=== PATIENT | female | born 1940 | race Caucasian/White ===

== ENCOUNTER → 2023-02-26 14:43 | Outpatient (REF) | payer OTHER, SELFPAY | LOC: WOUND 14:43 | PROVIDERS: ATTENDING PHYSICIAN Surgery; REFERRING PHYSICIAN Internal Medicine | DX: L97.822 Non-pressure chronic ulcer of other part of left lower leg with fat layer exposed (principal); L97.322 Non-pressure chronic ulcer of left ankle with fat layer exposed; D64.89 Other specified anemias; I10 Essential (primary) hypertension; Z86.73 Personal history of transient ischemic attack (TIA), and cerebral infarction without residual deficits | CPT/HCPCS: 29581; 97597 ==

== ENCOUNTER → 2023-03-31 14:35 | Outpatient (REF) | payer OTHER, SELFPAY | LOC: WOUND 14:35 | PROVIDERS: ATTENDING PHYSICIAN Surgery; REFERRING PHYSICIAN Internal Medicine | DX: L97.822 Non-pressure chronic ulcer of other part of left lower leg with fat layer exposed (principal); Z86.73 Personal history of transient ischemic attack (TIA), and cerebral infarction without residual deficits; I10 Essential (primary) hypertension; L03.116 Cellulitis of left lower limb; L97.322 Non-pressure chronic ulcer of left ankle with fat layer exposed | CPT/HCPCS: 97597 ==

== ENCOUNTER → 2023-04-09 11:45 | Outpatient (REF) | payer OTHER, SELFPAY | LOC: WOUND 11:45 | PROVIDERS: ATTENDING PHYSICIAN Surgery | DX: L03.116 Cellulitis of left lower limb (principal); L97.822 Non-pressure chronic ulcer of other part of left lower leg with fat layer exposed; Z86.73 Personal history of transient ischemic attack (TIA), and cerebral infarction without residual deficits; D64.89 Other specified anemias; I10 Essential (primary) hypertension; L97.322 Non-pressure chronic ulcer of left ankle with fat layer exposed | CPT/HCPCS: 97597; 97598 ==

== ENCOUNTER → 2023-07-22 14:43 | Outpatient (REF) | payer OTHER, SELFPAY | LOC: WOUND 14:43 | PROVIDERS: ATTENDING PHYSICIAN Surgery Plastic and Reconstructive Surgery; REFERRING PHYSICIAN Internal Medicine | DX: L97.822 Non-pressure chronic ulcer of other part of left lower leg with fat layer exposed (principal); D64.89 Other specified anemias; I10 Essential (primary) hypertension; L03.116 Cellulitis of left lower limb; L97.322 Non-pressure chronic ulcer of left ankle with fat layer exposed; Z86.73 Personal history of transient ischemic attack (TIA), and cerebral infarction without residual deficits | CPT/HCPCS: 29580; 99213 ==

== ENCOUNTER → 2023-08-01 14:40 | Outpatient (REF) | payer OTHER, SELFPAY | LOC: WOUND 14:40 | PROVIDERS: ATTENDING PHYSICIAN Surgery Plastic and Reconstructive Surgery; REFERRING PHYSICIAN Internal Medicine | DX: L97.822 Non-pressure chronic ulcer of other part of left lower leg with fat layer exposed (principal); L97.322 Non-pressure chronic ulcer of left ankle with fat layer exposed; L03.116 Cellulitis of left lower limb | CPT/HCPCS: 29580 ==

== ENCOUNTER → 2023-08-08 10:43 | Outpatient (REF) | payer OTHER, SELFPAY | LOC: WOUND 10:43 | PROVIDERS: ATTENDING PHYSICIAN Surgery Plastic and Reconstructive Surgery; REFERRING PHYSICIAN Internal Medicine | DX: L97.822 Non-pressure chronic ulcer of other part of left lower leg with fat layer exposed (principal); Z86.73 Personal history of transient ischemic attack (TIA), and cerebral infarction without residual deficits; D64.89 Other specified anemias; I10 Essential (primary) hypertension; L03.116 Cellulitis of left lower limb; L97.322 Non-pressure chronic ulcer of left ankle with fat layer exposed | CPT/HCPCS: 29580 ==

== ENCOUNTER → 2023-08-15 10:54 | Outpatient (REF) | payer OTHER, SELFPAY | LOC: WOUND 10:54 | PROVIDERS: ATTENDING PHYSICIAN Surgery; REFERRING PHYSICIAN Internal Medicine | DX: L03.116 Cellulitis of left lower limb (principal); L97.822 Non-pressure chronic ulcer of other part of left lower leg with fat layer exposed; Z86.73 Personal history of transient ischemic attack (TIA), and cerebral infarction without residual deficits; D64.89 Other specified anemias; I10 Essential (primary) hypertension; L97.322 Non-pressure chronic ulcer of left ankle with fat layer exposed | CPT/HCPCS: 29580; 99213 ==

== ENCOUNTER → 2023-09-04 14:54 | Outpatient (REF) | payer OTHER, SELFPAY | LOC: WOUND 14:54 | PROVIDERS: ATTENDING PHYSICIAN Surgery; REFERRING PHYSICIAN Nurse Practitioner Adult Health | DX: L97.322 Non-pressure chronic ulcer of left ankle with fat layer exposed (principal); L97.811 Non-pressure chronic ulcer of other part of right lower leg limited to breakdown of skin; D64.89 Other specified anemias; I10 Essential (primary) hypertension; L03.116 Cellulitis of left lower limb; Z86.73 Personal history of transient ischemic attack (TIA), and cerebral infarction without residual deficits | CPT/HCPCS: 11042; 99213 ==

== ENCOUNTER → 2023-09-09 09:56 | Outpatient (REF) | payer OTHER, SELFPAY | LOC: WOUND 09:56 | PROVIDERS: ATTENDING PHYSICIAN Surgery; REFERRING PHYSICIAN Nurse Practitioner Adult Health | DX: L97.322 Non-pressure chronic ulcer of left ankle with fat layer exposed (principal); L97.811 Non-pressure chronic ulcer of other part of right lower leg limited to breakdown of skin; L03.116 Cellulitis of left lower limb | CPT/HCPCS: 11042 ==

== ENCOUNTER → 2023-09-18 15:25 | Outpatient (REF) | payer OTHER, SELFPAY | LOC: WOUND 15:25 | PROVIDERS: ATTENDING PHYSICIAN Surgery; REFERRING PHYSICIAN Nurse Practitioner Adult Health | DX: L03.116 Cellulitis of left lower limb (principal); L97.322 Non-pressure chronic ulcer of left ankle with fat layer exposed; L97.811 Non-pressure chronic ulcer of other part of right lower leg limited to breakdown of skin; Z86.73 Personal history of transient ischemic attack (TIA), and cerebral infarction without residual deficits; D64.89 Other specified anemias; I10 Essential (primary) hypertension | CPT/HCPCS: 11042; 29581 ==

== ENCOUNTER → 2023-09-26 14:44 | Outpatient (REF) | payer OTHER, SELFPAY | LOC: WOUND 14:44 | PROVIDERS: ATTENDING PHYSICIAN Surgery; FAMILY PHYSICIAN Nurse Practitioner Adult Health | DX: L03.116 Cellulitis of left lower limb (principal); L97.322 Non-pressure chronic ulcer of left ankle with fat layer exposed; L97.811 Non-pressure chronic ulcer of other part of right lower leg limited to breakdown of skin; Z86.73 Personal history of transient ischemic attack (TIA), and cerebral infarction without residual deficits; D64.89 Other specified anemias; I10 Essential (primary) hypertension | CPT/HCPCS: 11042; 29581 ==

== ENCOUNTER → 2023-10-03 14:49 | Outpatient (REF) | payer OTHER, SELFPAY | LOC: WOUND 14:49 | PROVIDERS: ATTENDING PHYSICIAN Surgery; FAMILY PHYSICIAN Nurse Practitioner Adult Health | DX: L97.322 Non-pressure chronic ulcer of left ankle with fat layer exposed (principal); L97.811 Non-pressure chronic ulcer of other part of right lower leg limited to breakdown of skin; D64.89 Other specified anemias; I10 Essential (primary) hypertension; L03.116 Cellulitis of left lower limb; Z86.73 Personal history of transient ischemic attack (TIA), and cerebral infarction without residual deficits | CPT/HCPCS: 99212 ==

== ENCOUNTER → 2023-10-06 10:09 | Outpatient (REF) | payer OTHER, SELFPAY | LOC: WOUND 10:09 | PROVIDERS: ATTENDING PHYSICIAN Surgery; FAMILY PHYSICIAN Nurse Practitioner Adult Health | DX: L03.116 Cellulitis of left lower limb (principal); L97.322 Non-pressure chronic ulcer of left ankle with fat layer exposed; L97.821 Non-pressure chronic ulcer of other part of left lower leg limited to breakdown of skin; Z86.73 Personal history of transient ischemic attack (TIA), and cerebral infarction without residual deficits; D64.89 Other specified anemias; I10 Essential (primary) hypertension | CPT/HCPCS: 29580; 99213 ==

== ENCOUNTER → 2023-10-13 10:16 | Outpatient (REF) | payer OTHER, SELFPAY | LOC: WOUND 10:16 | PROVIDERS: ATTENDING PHYSICIAN Surgery; FAMILY PHYSICIAN Nurse Practitioner Adult Health | DX: L03.116 Cellulitis of left lower limb (principal); L97.322 Non-pressure chronic ulcer of left ankle with fat layer exposed; L97.821 Non-pressure chronic ulcer of other part of left lower leg limited to breakdown of skin; Z86.73 Personal history of transient ischemic attack (TIA), and cerebral infarction without residual deficits; D64.89 Other specified anemias; I10 Essential (primary) hypertension | CPT/HCPCS: 29580; 99213 ==

== ENCOUNTER → 2023-10-20 15:09 | Outpatient (REF) | payer OTHER, SELFPAY | LOC: WOUND 15:09 | PROVIDERS: ATTENDING PHYSICIAN Surgery; FAMILY PHYSICIAN Nurse Practitioner Adult Health | DX: L97.322 Non-pressure chronic ulcer of left ankle with fat layer exposed (principal); L97.821 Non-pressure chronic ulcer of other part of left lower leg limited to breakdown of skin; Z86.73 Personal history of transient ischemic attack (TIA), and cerebral infarction without residual deficits; D64.89 Other specified anemias; I10 Essential (primary) hypertension; L03.116 Cellulitis of left lower limb | CPT/HCPCS: 29581; 99213 ==

== ENCOUNTER → 2023-10-27 14:37 | Outpatient (REF) | payer OTHER, SELFPAY | LOC: WOUND 14:37 | PROVIDERS: ATTENDING PHYSICIAN Surgery; FAMILY PHYSICIAN Nurse Practitioner Adult Health | DX: L03.116 Cellulitis of left lower limb (principal); L97.322 Non-pressure chronic ulcer of left ankle with fat layer exposed; L97.821 Non-pressure chronic ulcer of other part of left lower leg limited to breakdown of skin; D64.89 Other specified anemias; I10 Essential (primary) hypertension; Z86.73 Personal history of transient ischemic attack (TIA), and cerebral infarction without residual deficits | CPT/HCPCS: 29581; 99213 ==

== ENCOUNTER → 2023-11-03 14:02 | Outpatient (REF) | payer OTHER, SELFPAY | LOC: WOUND 14:02 | PROVIDERS: ATTENDING PHYSICIAN Surgery; FAMILY PHYSICIAN Nurse Practitioner Adult Health | DX: L97.322 Non-pressure chronic ulcer of left ankle with fat layer exposed (principal); L97.821 Non-pressure chronic ulcer of other part of left lower leg limited to breakdown of skin; D64.89 Other specified anemias; I10 Essential (primary) hypertension; L03.116 Cellulitis of left lower limb; Z86.73 Personal history of transient ischemic attack (TIA), and cerebral infarction without residual deficits | CPT/HCPCS: 29581; 99213 ==

== ENCOUNTER → 2023-11-12 14:35 | Outpatient (REF) | payer OTHER, SELFPAY | LOC: WOUND 14:35 | PROVIDERS: ATTENDING PHYSICIAN Surgery; FAMILY PHYSICIAN Nurse Practitioner Adult Health | DX: L97.322 Non-pressure chronic ulcer of left ankle with fat layer exposed (principal); L97.821 Non-pressure chronic ulcer of other part of left lower leg limited to breakdown of skin; D64.89 Other specified anemias; L03.116 Cellulitis of left lower limb; I10 Essential (primary) hypertension | CPT/HCPCS: 99212 ==

== ENCOUNTER → 2024-04-08 09:56 | Outpatient (REF) | payer OTHER, SELFPAY ==
[2024-04-08 11:03] LABS: % Basophils 0.2 % (0-2); % Eosinophils 4.8 % (0-6); % Immature Granulocytes 0.5 % (0-0.5); % Lymphocytes 25.5 % (20.5-51.1); % Monocytes 11.8 % (1.7-9.3); % Neutrophils 57.2 % (42.2-75.2); Absolute Eosinophils 0.3 10^3/uL (0-0.7); Absolute Lymphocytes 1.5 10^3/uL (1.2-3.4); Absolute Monocytes 0.7 10^3/uL (0.1-0.6); Absolute Neutrophils 3.3 10^3/uL (1.4-6.5); Hematocrit 39.5 % (37.0-47.0); Hemoglobin 13.1 g/dL (12.0-16.0); Mean Corp Hgb Conc. 33.2 g/dL (33.0-37.0); Mean Corpuscular Hgb 30.3 pg (27.0-31.0); Mean Corpuscular Volume 91.2 fL (81.0-99.0); Mean Platelet Volume 10.2 fL (7.4-10.4); Nucleated Red Blood Cells % 0 %; Platelet Count 267 10^3/uL (130-400); Red Blood Cell Count 4.33 10^6/uL (4.20-5.40); Red Cell Dist. Width 14.6 % (11.5-14.5); White Blood Cell Count 5.7 10^3/uL (4.8-10.8)
[2024-04-08 11:48] LABS: ALT (SGPT) 30 U/L (0-35); AST (SGOT) 33 U/L (14-36); Albumin 4.1 g/dl (3.5-5.0); Alkaline Phosphatase 76 U/L (38-126); Blood Urea Nitrogen 26 mg/dl (7-17); Calcium 9.8 mg/dl (8.4-10.2); Carbon Dioxide 28 mmol/L (22-30); Chloride 104 mmol/L (98-107); Glucose 99 mg/dl (70-99); HDL Cholesterol 60 mg/dl; LDL Cholesterol, Calculated 109 mg/dl; Magnesium 2.1 mg/dl (1.6-2.3); Potassium 4.4 mmol/L (3.5-5.1); Sodium 142 mmol/L (135-145); Total Bilirubin 0.5 mg/dl (0.2-1.3); Total Cholesterol 186 mg/dl (50-199); Total Protein 6.7 g/dl (6.3-8.2); Triglyceride 89 mg/dl (10-149); Very Low Density Lipoprotein 17 mg/dl (0-30); eGFR > 60.00
[2024-04-08 12:04] LABS: Free T4 1.19 ng/dl (0.78-2.19); Vitamin D, 25-OH*** 48.4 ng/mL (30-80)
[2024-04-08 12:18] LABS: TSH 5.59 uIU/ml (0.47-4.68)
[2024-04-08 12:37] LABS: Vitamin B12 > 1000 pg/ml (239-931)
[2024-04-08 13:06] LABS: Glycohemoglobin (HgbA1c) 6.1 % (4.0-5.6)
== END ==
LOC: OLABMERCHI 09:56
PROVIDERS: ATTENDING PHYSICIAN Hospitalist
DX: D64.9 Anemia, unspecified (principal); D51.9 Vitamin B12 deficiency anemia, unspecified; R94.4 Abnormal results of kidney function studies; E03.9 Hypothyroidism, unspecified; E11.9 Type 2 diabetes mellitus without complications; E78.5 Hyperlipidemia, unspecified; N39.0 Urinary tract infection, site not specified; E83.42 Hypomagnesemia
CPT/HCPCS: 36415; 80053; 80061; 82306; 82607; 83036; 83735; 84439; 84443; 85025

== ENCOUNTER 2024-10-08 09:36 | Inpatient (IN) | payer OTHER, SELFPAY ==
[2024-10-06 17:16] VITALS: BP 95/59
--- NOTE | 2024-10-06 17:27 | ED.GENMED ---
ED Provider Triage
<Malik Holland PA-C - Last Filed: 10/11/24 08:09>
-
Patient seen by provider in Triage?: Seen in Triage
Attestation: A medical screening examination has been initiated by a qualified medical provider. Based on the assessment performed at this time, it has been determined that an emergent medical condition may exist and the patient has been informed
that further medical evaluation and possible additional diagnostic testing may be needed.
HPI: 84-year-old female presents from [facility] with ongoing wound to the inguinal region for 1 week. She was placed on Keflex and nystatin without relief. She is not a diabetic. Basic labs ordered through triage
GENERAL: Alert , in no apparent distress
EYE: No visual abnormalities.
NECK: Trachea midline
ENT: No visible abnormalities.
LUNGS: No acute respiratory distress
NEUROLOGICAL: Alert and oriented
SKIN: Skin intact. No visible changes.
MUSCULOSKELETAL: Moving extremities normally
PSYCH: Normal and appropriate interaction.
This is a medical evaluation conducted in person to initiate diagnostic evaluation and provide initial therapeutics. Please see further documentation by the treating clinician.
History of Present Illness
<Malik Holland PA-C - Last Filed: 10/11/24 08:09>
General
Chief Complaint: Skin Problem
Time Seen by Provider: 10/06/24 21:21
<Leroy Garg MD - Last Filed: 10/12/24 13:17>
General
Source: patient
Exam Limitations: none
Nursing documentation reviewed up to this point in time: agreed with
History of Present Illness
History of Present Illness:
Patient presents to ED secondary to worsening pain/itching sensation along her groin/vaginal wall over the past 3 days. Patient was started on Keflex 2 days ago, without improvement symptoms. Denies fever or chills. Denies nausea or vomiting.
Denies trauma, although patient does state that secondary to itchiness, she was scratching it and may have caused a small cut. Denies previous history of similar symptoms.
Past History
<Malik Holland PA-C - Last Filed: 10/11/24 08:09>
Past History
ED Past Medical History: CVA, HTN, Hypercholesterolemia and Other (UTI, Anemia-iron. )
ED Past Surgical History: (X 3), Gynecological (Hysterectomy, ) and Orthopedic (Laminectomy with Fusion. Left and right hip replacements. )
Social History
Tobacco: Non-smoker
Alcohol: None
Drug: None
Personal:
Living: alone
Employment: Not employed
Family History
Family History: Other
Review of Systems
<Leroy Garg MD - Last Filed: 10/12/24 13:17>
Review of Systems
Allergies reviewed?: Yes
All Other Systems: ROS reviewed and negative except as documented in HPI and ROS
Constitutional: Reports no symptoms; Denies fever or chills
ABD/GI: Reports no symptoms; Denies nausea or vomiting
Musculoskeletal: Reports no symptoms
Skin: Reports itching and other (Vaginal wall pain with swelling)
Neurological: Reports no symptoms
Phy Exam
<Leroy Garg MD - Last Filed: 10/12/24 13:17>
Physical Exam
Physical Exam:
Physical Exam
General: no apparent distress, not acutely ill. afebrile
Head: nc/at. eomi
Neck: supple. normal range of motion
Abdomen: normal bowel sounds. not tender.
Neuro: alert and oriented x 3. no focal neurological deficits
Skin: (IVET Carrasco, at bedside) - an approx 1cm x 2cm abscess along left vaginal wall with erythema/swelling/tenderness.
Psychiatric: well kept. interactive and cooperative
Extremities: no edema. no calf tenderness.
Course
<Malik Holland PA-C - Last Filed: 10/11/24 08:09>
Orders/Labs/Results
Orders:
Orders
10/06/24 17:34
Complete Blood Count/With Diff Urgent
Comprehensive Metabolic Panel Urgent
10/06/24 21:53
Piperacillin/Tazo 3.375 Gram [Zosyn] 3.375 gram in 50 ml IV NOW
10/06/24 22:57
Lactic Acid Q4H
Comment: CANCEL 2nd LACTIC ACID IF 1st LACTIC ACID IS LESS THAN 2
Blood Culture Q30M
CIARAN Source: Blood/Venous
Specimen Description:
Wound Culture [Wound/Abscess/Other Culture] Urgent
CIARAN Source: Abscess
Specimen Description:
Date Specimen was Collected: 10/06/24
Time Specimen was Collected: 22:43
Comment: left vulva abscess
10/06/24 23:00
Flush (0.9% Sodium Chloride) [Flush (Nss)] See Dose Instructions IV PER PROTOCOL
10/06/24 23:12
Admit/Transfer Patient As Directed
Co-Sign Provider:
Level of Care: Observation services
Assign to:: Medical/Surgical
Physician / Group: Jesús Siegel
Diagnosis: labia majora abscess/wound
PRN Pain Medication Management As Directed
May give lesser potent ordered pain med per pt: Yes
preference::
Protocol:: Medication orders for pain may be administered in a
manner that supports deferring to patient preference
when the pt is:
- Requesting an ordered lesser potent pain medication.
Least to most potent pain medications are defined
as: acetaminophen < NSAID < tramadol < opioids
(morphine, oxycodone, hydromorphone).
- Requesting a lesser dose of the same medication IF
ORDERED.
- Requesting a less intrusive route of administration
if both routes are prescribed by the provider (PO <
IV).
10/06/24 23:13
Code Status As Directed
Resuscitation Status: Full Code
10/07/24 00:29
Acetaminophen [Tylenol] 650 mg PO Q4HPRN PRN
10/07/24 00:29
Consult Notification Routine
Specialty to Notify: SLICING MACHINE FEEDER
Date consulting provider notified: 10/07/24
Time consulting provider notified: 07:21
Notified:: Provider
Comment: TT addiction treatment counselor OB
SLICING MACHINE FEEDER CONSULT Routine
Consulting Provider: Julissa Rm
Was physician already notified: No
Reason for consult: left labia majora abscess/wound
Activity As Directed
Activity Level: Out of Bed-Early Mobility
Vital Signs As Directed
Frequency: Per unit guidelines
Weight As Directed
Frequency: Once
DX Deep Vein Thrombosis Video Routine
10/07/24 04:00
Piperacillin/Tazo 3.375 Gram [Zosyn] 3.375 gram in 50 ml IV Q6H
10/07/24 04:12
Basic Metabolic Panel IN AM
Complete Blood Count/No Diff IN AM
10/07/24 05:43
Pt Screening Request from Carlos Routine
10/07/24 05:47
MRSA Screen Routine
CIARAN Source: Nose
Specimen Description:
10/07/24 08:00
Aspirin Low Dose EC [Aspir Low (Enteric Coated)] 81 mg PO DAILY
Cholecalciferol (Vitamin D3) [VITAMIN D3 (cholecalciferol)] 25 mcg PO DAILY
Hydrochlorothiazide [Oretic] 12.5 mg PO DAILY
Lisinopril [Zestril] 40 mg PO DAILY
Multivitamin [Theragran] 1 tablet PO DAILY
Vitamin B Complex with C [B COMPLEX w/VITAMIN C] 1 caplet PO DAILY
turmeric 800 mg PO DAILY
10/07/24 09:26
Pt Eval And Treat Routine
Activity Level: Ambulate
10/07/24 Lunch
Cholesterol Lowering
At Your Request: Limited Participation
10/07/24 11:23
WOUND/OSTOMY CONSULT Routine
Reason for Consult: labial draining wound
10/07/24 13:58
Wound Care As Directed
Location of Wound: LLE
Treatment of Wound: -clean with saline, moisture lotion to dry skin le's, apply adaptic/abd pad/kerlix daily
prn drainage.
10/07/24 13:59
Compression Therapy As Directed
Location/extremity:: Left LE knee high
Right LE knee high
Type of compression therapy:: Luis Wrap
Other type of compression therapy:: as tolerated; may remove q hs; reapply q am.
10/07/24 14:00
Wound Care As Directed
Location of Wound: L outer labia wound
Treatment of Wound: -flush with luke warm soap and water or Vashe wound cleanser, Santyl ointment to necrotic
tissue BID, cover with non woven gauze, ABD pad or Rachel pad, secure with underwear.
Change dressing BID and prn incontinence.
10/07/24 14:15
INFECTIOUS DISEASE CONSULT Routine
Consulting Provider: Roshan Julio
Was physician already notified: Yes
Reason for consult: vulvar abscess
10/07/24 18:00
Enoxaparin Sodium [Lovenox] 40 mg SC QPM
10/07/24 20:00
Collagenase [Santyl Ointment] See Dose Instructions TOPICAL BID
Miconazole Nitrate [Desenex/Mitrazol/Zeasorb] See Dose Instructions TOPICAL BID
10/07/24 22:00
Rosuvastatin Calcium [Crestor] 5 mg PO HS
cranberry fruit [cranberry] 450 mg PO HS
Abnormal Lab Results
10/06/24 10/07/24
17:34 04:12
RBC 3.85 L 10^6/uL
(4.20-5.40)
Hgb 11.5 L g/dL
(12.0-16.0)
Hct 35.2 L %
(37.0-47.0)
MCHC 32.7 L g/dL 32.7 L g/dL
(33.0-37.0) (33.0-37.0)
Abs Immat Gran (auto) 0.2 H 10^3/uL
(0-0.05)
Absolute Monos (auto) 0.8 H 10^3/uL
(0.1-0.6)
Immature Gran % 1.7 H %
(0-0.5)
Lymphocytes % 15.7 L %
(20.5-51.1)
BUN 27 H mg/dl 25 H mg/dl
(7-17) (7-17)
Glucose 121 H mg/dl 100 H mg/dl
(70-99) (70-99)
10/07/24 04:12
10/07/24 04:12
Vital Signs
Initial and Last Documented VS:
Initial Vital Signs
Temp Pulse Resp BP Pulse Ox
98 F 71 20 95/59 98
10/06/24 17:16 10/06/24 17:16 10/06/24 17:16 10/06/24 17:16 10/06/24 17:16
Last Documented Vital Signs
Temp Pulse Resp BP Pulse Ox
97.4 F 61 16 152/61 99
10/12/24 07:38 10/12/24 07:38 10/12/24 07:38 10/12/24 07:38 10/12/24 07:38
Nataliolt;Leroy Garg MD - Last Filed: 10/12/24 13:17>
Orders/Labs/Results
Orders:
Orders
10/06/24 17:34
Complete Blood Count/With Diff Urgent
Comprehensive Metabolic Panel Urgent
10/06/24 21:53
Piperacillin/Tazo 3.375 Gram [Zosyn] 3.375 gram in 50 ml IV NOW
10/06/24 22:57
Lactic Acid Q4H
Comment: CANCEL 2nd LACTIC ACID IF 1st LACTIC ACID IS LESS THAN 2
Blood Culture Q30M
CIARAN Source: Blood/Venous
Specimen Description:
Wound Culture [Wound/Abscess/Other Culture] Urgent
CIARAN Source: Abscess
Specimen Description:
Date Specimen was Collected: 10/06/24
Time Specimen was Collected: 22:43
Comment: left vulva abscess
10/06/24 23:00
Flush (0.9% Sodium Chloride) [Flush (Nss)] See Dose Instructions IV PER PROTOCOL
10/06/24 23:12
Admit/Transfer Patient As Directed
Co-Sign Provider:
Level of Care: Observation services
Assign to:: Medical/Surgical
Physician / Group: Jesús Siegel
Diagnosis: labia majora abscess/wound
PRN Pain Medication Management As Directed
May give lesser potent ordered pain med per pt: Yes
preference::
Protocol:: Medication orders for pain may be administered in a
manner that supports deferring to patient preference
when the pt is:
- Requesting an ordered lesser potent pain medication.
Least to most potent pain medications are defined
as: acetaminophen < NSAID < tramadol < opioids
(morphine, oxycodone, hydromorphone).
- Requesting a lesser dose of the same medication IF
ORDERED.
- Requesting a less intrusive route of administration
if both routes are prescribed by the provider (PO <
IV).
10/06/24 23:13
Code Status As Directed
Resuscitation Status: Full Code
10/07/24 00:29
Acetaminophen [Tylenol] 650 mg PO Q4HPRN PRN
10/07/24 00:29
Consult Notification Routine
Specialty to Notify: SLICING MACHINE FEEDER
Date consulting provider notified: 10/07/24
Time consulting provider notified: 07:21
Notified:: Provider
Comment: TT addiction treatment counselor OB
SLICING MACHINE FEEDER CONSULT Routine
Consulting Provider: Julissa Rm
Was physician already notified: No
Reason for consult: left labia majora abscess/wound
Activity As Directed
Activity Level: Out of Bed-Early Mobility
Vital Signs As Directed
Frequency: Per unit guidelines
Weight As Directed
Frequency: Once
DX Deep Vein Thrombosis Video Routine
10/07/24 04:00
Piperacillin/Tazo 3.375 Gram [Zosyn] 3.375 gram in 50 ml IV Q6H
10/07/24 04:12
Basic Metabolic Panel IN AM
Complete Blood Count/No Diff IN AM
10/07/24 05:43
Pt Screening Request from Carlos Routine
10/07/24 05:47
MRSA Screen Routine
CIARAN Source: Nose
Specimen Description:
10/07/24 08:00
Aspirin Low Dose EC [Aspir Low (Enteric Coated)] 81 mg PO DAILY
Cholecalciferol (Vitamin D3) [VITAMIN D3 (cholecalciferol)] 25 mcg PO DAILY
Hydrochlorothiazide [Oretic] 12.5 mg PO DAILY
Lisinopril [Zestril] 40 mg PO DAILY
Multivitamin [Theragran] 1 tablet PO DAILY
Vitamin B Complex with C [B COMPLEX w/VITAMIN C] 1 caplet PO DAILY
turmeric 800 mg PO DAILY
10/07/24 09:26
Pt Eval And Treat Routine
Activity Level: Ambulate
10/07/24 Lunch
Cholesterol Lowering
At Your Request: Limited Participation
10/07/24 11:23
WOUND/OSTOMY CONSULT Routine
Reason for Consult: labial draining wound
10/07/24 13:58
Wound Care As Directed
Location of Wound: LLE
Treatment of Wound: -clean with saline, moisture lotion to dry skin le's, apply adaptic/abd pad/kerlix daily
prn drainage.
10/07/24 13:59
Compression Therapy As Directed
Location/extremity:: Left LE knee high
Right LE knee high
Type of compression therapy:: Luis Wrap
Other type of compression therapy:: as tolerated; may remove q hs; reapply q am.
10/07/24 14:00
Wound Care As Directed
Location of Wound: L outer labia wound
Treatment of Wound: -flush with luke warm soap and water or Vashe wound cleanser, Santyl ointment to necrotic
tissue BID, cover with non woven gauze, ABD pad or Rachel pad, secure with underwear.
Change dressing BID and prn incontinence.
10/07/24 14:15
INFECTIOUS DISEASE CONSULT Routine
Consulting Provider: Roshan Julio
Was physician already notified: Yes
Reason for consult: vulvar abscess
10/07/24 18:00
Enoxaparin Sodium [Lovenox] 40 mg SC QPM
10/07/24 20:00
Collagenase [Santyl Ointment] See Dose Instructions TOPICAL BID
Miconazole Nitrate [Desenex/Mitrazol/Zeasorb] See Dose Instructions TOPICAL BID
10/07/24 22:00
Rosuvastatin Calcium [Crestor] 5 mg PO HS
cranberry fruit [cranberry] 450 mg PO HS
Abnormal Lab Results
10/06/24 10/07/24
17:34 04:12
RBC 3.85 L 10^6/uL
(4.20-5.40)
Hgb 11.5 L g/dL
(12.0-16.0)
Hct 35.2 L %
(37.0-47.0)
MCHC 32.7 L g/dL 32.7 L g/dL
(33.0-37.0) (33.0-37.0)
Abs Immat Gran (auto) 0.2 H 10^3/uL
(0-0.05)
Absolute Monos (auto) 0.8 H 10^3/uL
(0.1-0.6)
Immature Gran % 1.7 H %
(0-0.5)
Lymphocytes % 15.7 L %
(20.5-51.1)
BUN 27 H mg/dl 25 H mg/dl
(7-17) (7-17)
Glucose 121 H mg/dl 100 H mg/dl
(70-99) (70-99)
10/07/24 04:12
10/07/24 04:12
Vital Signs
Initial and Last Documented VS:
Initial Vital Signs
Temp Pulse Resp BP Pulse Ox
98 F 71 20 95/59 98
10/06/24 17:16 10/06/24 17:16 10/06/24 17:16 10/06/24 17:16 10/06/24 17:16
Last Documented Vital Signs
Temp Pulse Resp BP Pulse Ox
97.4 F 61 16 152/61 99
10/12/24 07:38 10/12/24 07:38 10/12/24 07:38 10/12/24 07:38 10/12/24 07:38
<Leroy Garg MD - Last Filed: 10/12/24 13:17>
MDM/Problems Addressed
MDM/Problems Addressed:
Large vaginal wall abscess noted on exam, not respond to antibiotics as an outpatient. Patient will be admitted for IV antibiotics with potential consult to [facility] service for incision and drainage.
<Malik Holland PA-C - Last Filed: 10/11/24 08:09>
*Critical Care Note
Total Time (30-74mins, 75-104mins- exclusive of procedures): Not Applicable
ED Attending Note
<Malik Holland PA-C - Last Filed: 10/11/24 08:09>
-
Portions of this chart may have been created with voice recognition software.� Occasional wrong word or��sound alike� substitutions may have occurred due to the inherent limitations of voice recognition software.
Discharge Plan
Departure
Patient Disposition: Admit
Date of Disposition: 10/06/24
Time of Disposition: 21:58
Admit to: Med/Surg
Presentation/result/management discussed w/ accepting MD/DO: Hospitalist
Discharge Problem:
Abscess of labia majora
Interventions
Interventions:
*Risk Screen - Suicide Last Done: 10/06/24 17:16
*General Assessment Last Done: 10/06/24 17:16
*Neglect/Abuse Screening Last Done: 10/06/24 17:16
*ED- Fall Risk Assessment Last Done: 10/06/24 21:38
*ED COVID-19 Vaccine History Last Done: 10/06/24 21:38
*Nursing Disposition Last Done: 10/07/24 20:44
ED-Skin Assessment Last Done: 10/06/24 21:59
Discharge Date and Time
Discharge Date/Time: 10/07/24 20:44
[2024-10-06 17:47] LABS: % Basophils 0.2 % (0-2); % Eosinophils 3.7 % (0-6); % Immature Granulocytes 1.7 % (0-0.5); % Lymphocytes 15.7 % (20.5-51.1); % Monocytes 8.9 % (1.7-9.3); % Neutrophils 69.8 % (42.2-75.2); Absolute Eosinophils 0.3 10^3/uL (0-0.7); Absolute Immature Granulocytes 0.2 10^3/uL (0-0.05); Absolute Lymphocytes 1.4 10^3/uL (1.2-3.4); Absolute Monocytes 0.8 10^3/uL (0.1-0.6); Absolute Neutrophils 6.1 10^3/uL (1.4-6.5); Hematocrit 40.7 % (37.0-47.0); Hemoglobin 13.3 g/dL (12.0-16.0); Mean Corp Hgb Conc. 32.7 g/dL (33.0-37.0); Mean Corpuscular Volume 91.7 fL (81.0-99.0); Mean Platelet Volume 9.4 fL (7.4-10.4); Nucleated Red Blood Cells % 0 %; Platelet Count 345 10^3/uL (130-400); Red Blood Cell Count 4.44 10^6/uL (4.20-5.40); White Blood Cell Count 8.7 10^3/uL (4.8-10.8)
[2024-10-06 18:00] LABS: ALT (SGPT) 21 U/L (0-35); AST (SGOT) 30 U/L (14-36); Albumin 4.2 g/dl (3.5-5.0); Alkaline Phosphatase 87 U/L (38-126); Blood Urea Nitrogen 27 mg/dl (7-17); Calcium 9.9 mg/dl (8.4-10.2); Carbon Dioxide 23 mmol/L (22-30); Chloride 101 mmol/L (98-107); Glucose 121 mg/dl (70-99); Potassium 4.8 mmol/L (3.5-5.1); Sodium 135 mmol/L (135-145); Total Bilirubin 0.7 mg/dl (0.2-1.3); Total Protein 7.1 g/dl (6.3-8.2); eGFR > 60.00
[2024-10-06 21:38] VITALS: BMI 34.5
[2024-10-06 21:51] VITALS: BP 149/59
[2024-10-06 22:00] VITALS: BP 125/51
--- NOTE | 2024-10-06 22:10 | HPS.HSE ---
Addendum entered and electronically signed by Jesús Siegel DO 10/06/24 23:53:
Patient is an 84y F with PMH significant for hypertension and prior CVA who presents to ED from [facility] for evaluation of labial wound. Patient states that she accidentally scratched herself about a week ago and started with pain and
swelling in that area. She has been applying heat with some improvement. The area has since opened and is now draining serosanguinous material. Patient was started on Kef[place] yesterday at the [place]. Today she was sent for further evaluation.
Ass:
Labial Abscess / Cellulitis
Benign Hypertension
ASCVD / Prior CVA
Mild Dementia
Plan:
Admit for further evaluation and treatment.
Continue abx with Zosyn pending culture data.
HAND PRINTED CIRCUIT BOARD ASSEMBLER evaluation for additional recommendations / possible local I&D.
Continue usual med regimen (hold Plavix acutely in case intervention needed).
Original Note:
Family Physician
-
Family Physician:
Chief Complaint
-
wound to left labia majora
History of Present Illness
Patient is a 84-year-old female with past medical history significant for essential hypertension, hyperlipidemia, Hx CVA and rectal prolapse that presented to [facility] ED from [facility] for evaluation of ongoing wound/abscess to left
labia majora that failed out patient antibiotics with Keflex. Patient states that wound started and was self inflected when she scratched herself and used a thick cream on it. She believes it started Friday but is unsure, son at bedside says
doctor at [facility] believes it started prior to then. Patient states she has had pain and itching to area. Yesterday the RIVET TESTER started Keflex and today recommended evaluation at hospital for no improvement. Denies any fever, chills, cough, shortness
of breath, nausea, vomiting, constipation, diarrhea or urinary symptoms.
Medical History
Past Medical History
Past Medical History: Reports Other
Additional Past Medical History:
essential hypertension
hyperlipidemia
Hx CVA
rectal prolapse
Past Surgical History: Reports Other
Additional Past Surgical History:
x3
hysterectomy
laminectomy with fusion
bilateral hip replacement
Social History
Tobacco: Non-smoker
Alcohol: Occasional
Drug: None
Living: Senior Care
Employment: Retired
Family History
Family History: Other (Mother: DM; Father: cancer )
Allergies / Home Medications
Allergies reflects when Allergies were last updated in [facility].
Home Medications with original date entered in [facility]
Allergy/Medication List:
Allergies
Allergy/AdvReac Type Severity Reaction Status Date / Time
risedronate sodium Allergy Patient Verified 10/06/24 17:19
denies
Home Medications
cholecalciferol (vitamin D3) 25 mcg (1,000 unit) tablet 2,000 units PO DAILY Supplement 02/02/19
rosuvastatin 5 mg tablet 5 mg PO HS High cholesterol 11/16/19
clopidogrel 75 mg tablet 75 mg PO DAILY Blood clot prevention/tx ##0 05/23/20
aspirin 81 mg tablet,delayed release 1 tab PO DAILY Blood clot prevention/tx 07/05/22
lisinopril 40 mg tablet 40 mg PO DAILY Blood Pressure 07/05/22
vitamin B complex 1 cap PO DAILY Supplement 07/05/22
acetaminophen 325 mg tablet 650 mg PO Q6HPRN PRN mild pain 01/11/23
cephalexin 500 mg capsule 500 mg PO BID 10/06/24
cranberry fruit 450 mg tablet (cranberry) 450 mg PO HS 10/06/24
hydrochlorothiazide 12.5 mg capsule 12.5 mg PO DAILY 10/06/24
nystatin 100,000 unit/gram topical powder (Klayesta) 1 applic topical BID groin 10/06/24
therapeutic multivitamin 1 tab PO DAILY 10/06/24
turmeric 400 mg capsule 800 mg PO DAILY 10/06/24
Review of Systems
-
History Source: Patient
Constitutional: Reports No Symptoms
EENT: Reports No Symptoms
Respiratory: Reports No Symptoms
Cardiac: Reports No Symptoms
Abdomen/GI: Reports No Symptoms
: Reports No Symptoms
Musculoskeletal: Reports No Symptoms
Skin: Reports Other (open wound to left labia majora with itching and discomfort )
Neurological: Reports No Symptoms
Endocrine: Reports No Symptoms
Hematologic/Lymphatic: Reports No Symptoms
Psych: Reports No Symptoms
Physical Exam
Vital Signs
Vital Signs
Temp Pulse Resp BP Pulse Ox
98 F 80 16 149/59 95
10/06/24 17:16 10/06/24 22:00 10/06/24 22:00 10/06/24 21:51 10/06/24 22:00
Physical Exam
General: Well Developed, Well Nourished, No Apparent Distress, Comfortable and Conversant
HEENT: NormoCephalic, Moist mucous membranes, Atraumatic, [place] Conjunctivae, Nose Appears Normal and Ears Appear Normal
Respiratory: Clear and Non Labored Respirations
Cardiac: S1/S2 and Regular Rhythm; No Murmur, Rub or Gallop
Breast: Deferred by me
GI: Soft, Non Tender, Non Distended and Normal Bowel Sounds; No Organomegaly
Rectal: Deferred by Provider
Genito-urinary: Deferred by me
Musculoskeletal: No Clubbing, No Cyanosis and No Edema
Skin: Warm and IV/Catheter Site; No Rash
Neuro: Awake, Alert, AO x 3 and Nonfocal/grossly intact
Psych: Calm and Intact Judgment/Insight
Laboratory Results
-
10/06/24 17:34
10/06/24 17:34
Laboratory Results
Total Bilirubin 0.7 mg/dl (0.2-1.3) 10/06/24 17:34
AST 30 U/L (14-36) 10/06/24 17:34
ALT 21 U/L (0-35) 10/06/24 17:34
Alkaline Phosphatase 87 U/L (38-126) 10/06/24 17:34
Data Reviewed
-
Lab Data: Labs Reviewed by me
Impression/Plan
-
IMPRESSION/PLAN:
#labia majora abscess
failed out patient antibiotics with Keflex
- Admit to med/surg
- Consult HAND PRINTED CIRCUIT BOARD ASSEMBLER
- continue IV Zosyn
- supportive care
#essential hypertension
- continue lisinopril
#hyperlipidemia
- continue rosuvastatin
#Hx CVA
- continue clopidogrel and rosuvastatin
#rectal prolapse
Code status: Full Code
DVT prophylaxis: Lovenox sq
[2024-10-06] MEDS: ZOSYN 50 IV (22:58)
[2024-10-06 23:00] VITALS: BP 143/50
[2024-10-07] VITALS (16 sets, daily range): BP systolic 114–162; BP diastolic 36–100; O2SAT 93; BMI 36.2
[2024-10-07] MEDS: ZOSYN 50 IV ×4 (04:24→21:17)
[2024-10-07 04:42] LABS: Hematocrit 35.2 % (37.0-47.0); Hemoglobin 11.5 g/dL (12.0-16.0); Mean Corp Hgb Conc. 32.7 g/dL (33.0-37.0); Mean Corpuscular Hgb 29.9 pg (27.0-31.0); Mean Corpuscular Volume 91.4 fL (81.0-99.0); Mean Platelet Volume 9.4 fL (7.4-10.4); Platelet Count 317 10^3/uL (130-400); Red Blood Cell Count 3.85 10^6/uL (4.20-5.40); Red Cell Dist. Width 13.2 % (11.5-14.5); White Blood Cell Count 7.4 10^3/uL (4.8-10.8)
[2024-10-07 04:57] LABS: Blood Urea Nitrogen 25 mg/dl (7-17); Calcium 9.3 mg/dl (8.4-10.2); Carbon Dioxide 28 mmol/L (22-30); Chloride 105 mmol/L (98-107); Estimated Creatinine Clearance 57 ml/min; Glucose 100 mg/dl (70-99); Potassium 4.2 mmol/L (3.5-5.1); Sodium 139 mmol/L (135-145); eGFR > 60.00
[2024-10-07] MEDS: B COMPLEX w/VITAMIN C 1 CAPLET PO (08:24)
[2024-10-07] MEDS: ZESTRIL 40 MG PO (08:24)
[2024-10-07] MEDS: VITAMIN D3 (cholecalciferol) 25 MCG PO (08:24)
[2024-10-07] MEDS: ASPIR LOW (ENTERIC COATED) 81 MG PO ×2 (08:24)
[2024-10-07] MEDS: THERAGRAN 1 TABLET PO (08:24)
[2024-10-07] MEDS: ORETIC 12.5 MG PO (09:22)
--- NOTE | 2024-10-07 09:25 | W.PN.HOSP.TC ---
Today's Communication/Plan
-
see bold
Assessment / Plan
Assessment / Plan
84y F with PMH significant for hypertension and prior CVA who presents to ED from [facility] for evaluation of labial wound. Patient states that she accidentally scratched herself about a week ago and started with pain and swelling in that
area. She has been applying heat with some improvement. The area has since opened and is now draining serosanguinous material. Patient was started on Keflex yesterday at [facility]. Today she was sent for further evaluation.
#Labia abscess
Continue IV zosyn, gynecology consulted for I&D
Holding Plavix
#Chronic bilateral lower extremity edema
Wound care consulted, compression stockings
#Essential hypertension
Continue lisinopril, hydrochlorothiazide
#Hyperlipidemia
Continue statin
#History of stroke
From [facility]
Hold Plavix for possible procedure
Continue aspirin, statin
#Obesity due to excess calories
Affects all aspects of care
DVT prophylaxis�subcu Lovenox
Full code
Total time spent to see the patient on the floor, examine the patient, review data and lab results, discuss treatment plan with patient, nursing staff around 45 minutes.
Physical Exam
General: Obese, no acute distress
HEENT: Normocephalic, Atraumatic, EOMI, MMM
Respiratory: Clear to Auscultation bilaterally
Cardiac: Normal S1/S2, Regular Rate and Rhythm
GI: Soft, Nontender, Nondistended, Normal Bowel Sounds
ENTRY LEVEL PROJECT COORDINATOR: defer to ENTRY LEVEL PROJECT COORDINATOR
Extremities: No Clubbing, Cyanosis
Bilateral lower extremity edema, chronic bilateral lower extremity erythema
Neuro: Nonfocal/Grossly Intact
Psych: Calm, Cooperative
Anticipated Discharge: Within 24 hours
Subjective/Interval History
-
Date of Service: October 07, 2024
Patient complains of labial pain with movement. She also complains of being hungry. No fever, no vomiting.
Objective Data
-
Labs:
Laboratory Results
10/07/24
04:12
WBC 7.4
Hgb 11.5 L
Hct 35.2 L
Plt Count 317
Sodium 139
Potassium 4.2
Chloride 105
Carbon Dioxide 28
BUN 25 H
Creatinine 0.8
Glucose 100 H
Calcium 9.3
Vital Signs:
Vital Signs
Temp Pulse Resp BP Pulse Ox
98.1 F 72 16 150/58 94
10/07/24 04:00 10/07/24 08:24 10/06/24 23:00 10/07/24 08:24 10/07/24 08:00
[2024-10-07] MEDS: TYLENOL 650 MG PO (11:33)
--- NOTE | 2024-10-07 13:44 | WOUNDNOTE ---
[facility] RN note: Patient admitted with outer labia abscess draining, cellulitis. Patient lives at [facility]. She has a supportive son.
See H&P for complete history.
PMH: CVA, mild dementia, ASCVD.
Wound Location and type/assessment: Patient admitted with: L outer labia full thickness abscess wound, open with yellow slough and pink tissue. +Erythema and local induration. Large amount of yellow cloudy drainage and some ss drainage. Inner
buttocks small healing stage 2 pressure injuries. Rachel/groin MASD. Abdominal fold MASD. Heels blanchable. LLE with dry cracked skin with some dried serous drainage. +Hemosiderosis. +Palpable pedal pulses. +LE edema L>R her normal as per patient. She
wears compression stockings at home.
Appetite: good.
Pressure redistribution devices in place: ED stretcher. She can turn slowly onto her side.
Plan: Dr.Cailyn Valentine evaluated labia wound/abscess and did local debridement, no bleeding, patient tolerated well. Local care discussed and plan is flush wound with soap and water or Vashe wound cleanser, BID Santyl ointment to necrotic tissue,
cover with ABD pad secured with underwear. Change outer dressing BID and prn incontinence. Miconazole powder to groin, affected areas bid. IVET Case applied knee high Luis wraps.
Will confirm orders with Dr. Barahona and updated IVET May.
Care plan to be updated and will follow as needed.
Recommend follow up at wound care center upon discharge.
--- NOTE | 2024-10-07 13:47 | WOUNDNOTE ---
SACRUM/COCCYX/BUTTOCKS
--- NOTE | 2024-10-07 13:48 | WOUNDNOTE ---
BILATERAL LOWER LEGS
--- NOTE | 2024-10-07 13:49 | WOUNDNOTE ---
BILATERAL LOWER LEGS
--- NOTE | 2024-10-07 13:50 | WOUNDNOTE ---
LEFT LATERAL POSTERIOR LOWER LEG/HEEL
--- NOTE | 2024-10-07 13:51 | WOUNDNOTE ---
BILATERAL LOWER LEGS
--- NOTE | 2024-10-07 15:45 | CON.MD ---
Consultation - Medical
-
Consult: vulvar abscess
HPI: Patient is an 84yo P3 who presented to the ED for evaluation of a vulvar abscess. She is a resident of [facility] and was started on Keflex 2 days ago for the abscess, but it did not get better. She says she thinks she scratched herself and
then noticed the abscess a couple days ago. She says prior to this, she did not notice anything. The abscess has since opened and is draining serosanguineous fluid. She denies fevers or chills. She has some pain in the area but she says it is
relieved by Tylenol. She says this has not happened before. She has had wounds of her lower extremities that she saw wound care for, but nothing on her labia or vulva. She says she is incontinent and has some burning of the area when she urinates.
She wears a diaper and pad for incontinence.
ROS negative unless otherwise noted in the HPI
PMHx: HTN, chronic b/l lower extremity edema, HLD, hx stroke, obesity, rectal prolapse
Meds: (see chart) vitamin D3, rosuvastatin, clopidogrel, ASA, HCTZ
Surghx: C/Sx3, hysterectomy (per chart, pt did not reveal this when asked about prior surgery), laminectomy w/ fusion, b/l hip replacement
All: denies
Socialhx: occasional etoh, denies tobacco or illicit drug use
Famhx: mom w/ DM
O:
BP 140/63, VSS
General: well appearing, resting in bed
Cardio: regular
Pulm: no increased work of breathing
Abd: soft, nontender.
: 3x2cm abscess on left vulva that is open, what appears to be necrotic exudate is present in the bed of the abscess, some of this was trimmed away with scissors, wound was irrigated with saline, the wound was probed with a q-tip and does not
track, there is some erythema that spreads beyond the abscess towards the mons pubis
A/P: Patient is an 84yo P3 who presents with vulvar abscess
- Vulvar abscess is open with necrotic exudate that was partially trimmed away. The area was irrigated with saline at bedside with wound care nurses present. Agree with their recommendations to apply Santyl to the area and dressing changes BID or
when soiled
- Continue IV Zosyn. ID consulted for antibiotic recommendations.
- Wound culture was collected in the ED and pending
- Recommend continuing to hold her Plavix for now in case of need for intervention. No plan for surgical intervention as this time.
30 minutes spent with patient, reviewing the chart and documenting
[2024-10-07] MEDS: LOVENOX 40 MG SC (17:10)
--- NOTE | 2024-10-07 18:39 | CON.ID ---
Consultation
-
Date/Time Consultation Requested: 10/07/2024 1415
Date/Time Consultation Performed: 10/07/2024 1750
Requesting Provider: Sharonda
Performing Provider: Sumanth
Reason for Consultation: Left labia abscess
Chief Complaint / Past History
History of Present Illness
Parul Emmanuel is an 84-year-old female being evaluated at the request of Dr. Valentine regarding a left labial abscess. History is obtained from chart review, along with patient interview.
The patient reports that sometime last week she developed some pain in the inguinal area which she proceeded to itch and scratch. She recalls also using some Aquaphor to the area. Earlier this week she spoke to her nurse who examined her and found
swelling in the labia area and she was started on Keflex 2 days ago. Yesterday she was seen by the physician and because of increased swelling of the area she was sent to the ER. Since arrival in the ER it appears that the abscess has
spontaneously drained, although the patient does not recall any time of having purulent drainage. She was evaluated by WELDING MACHINE OPERATOR [employer]. Cultures have been obtained.
The patient denies any fevers or chills. She denies any dysuria. She reports pain is controlled at this time.
Past History
Additional Past Medical History:
Hx CVA
HTN
Dyslipidemia
Additional Past Surgical History:
Bilateral hip replacement
Allergy History:
risedronate sodium Allergy (Verified 10/06/24 17:19)
Patient denies
Medications Reviewed: Yes
Current Antibiotics:
Zosyn 3.375 g IV every 6 hours
Social History
Tobacco: Non-Smoker
Drug: None
Personal: Single
Living: Assisted Living
Employment: Retired
Review of Systems
Vital Signs
Temp Pulse Resp BP Pulse Ox
97.8 F 72 16 140/63 96
10/07/24 15:52 10/07/24 08:24 10/06/24 23:00 10/07/24 15:19 10/07/24 15:52
Physical Exam
Physical Exam
Constitutional: No Acute Distress, Comfortable and Non-toxic
Eyes: No Conjunctival Hemorrhage and Sclera Anicteric
Cardiovascular: S1/S2; Negative S3/S4
Pulmonary: Non Labored
Gastrointestinal: Non Tender
Wound: Other (Left labia wound with evidence of abscess cavity.)
Neurological: Awake and Alert
Psychological: Calm
Lab / Diagnostic Study Results
10/07/24 04:12
10/07/24 04:12
Abs Immat Gran (auto) 0.2 10^3/uL (0-0.05) H 10/06/24 17:34
Absolute Neuts (auto) 6.1 10^3/uL (1.4-6.5) 10/06/24 17:34
Absolute Lymphs (auto) 1.4 10^3/uL (1.2-3.4) 10/06/24 17:34
Absolute Monos (auto) 0.8 10^3/uL (0.1-0.6) H 10/06/24 17:34
Absolute Basos (auto) 0.0 10^3/uL (0-0.2) 10/06/24 17:34
Immature Gran % 1.7 % (0-0.5) H 10/06/24 17:34
Neutrophils % 69.8 % (42.2-75.2) 10/06/24 17:34
Lymphocytes % 15.7 % (20.5-51.1) L 10/06/24 17:34
Monocytes % 8.9 % (1.7-9.3) 10/06/24 17:34
Eosinophils % 3.7 % (0-6) 10/06/24 17:34
Basophils % 0.2 % (0-2) 10/06/24 17:34
Lactic Acid 1.0 mmol/L (0.7-2.0) 10/06/24 22:57
Microbiology Results
Micro:
10/07/24 05:47 MRSA Screen - Pending
Nose
10/06/24 22:57 Wound Culture - Pending
Abscess Gram Stain - Preliminary
10/06/24 22:57 Blood Culture - Pending
Blood/Venous
Assessment / Plan
Left labia abscess; s/p spontaneous drainage
-Failed outpatient Keflex
Left labia cellulitis
Recommendations:
Continue with Zosyn for the present.
Await pending cultures to guide further antimicrobial therapy.
Local care to the abscess cavity area.
Patient has being followed by WELDING MACHINE OPERATOR [employer], and may require further debridement depending upon subsequent exams.
Care Review
Plan reviewed with: Nurse
[2024-10-07] MEDS: DESENEX/MITRAZOL/ZEASORB 1 APPLIC TOPICAL (21:13)
[2024-10-07] MEDS: SANTYL OINTMENT 1 APPLIC TOPICAL (21:13)
[2024-10-07] MEDS: CRESTOR 5 MG PO (21:17)
[2024-10-08] MEDS: ZOSYN 50 IV ×4 (04:28→21:24)
[2024-10-08 07:14] VITALS: BP 131/50
--- NOTE | 2024-10-08 08:41 | W.PN.HOSP.TC ---
Today's Communication/Plan
-
see bold
Assessment / Plan
Assessment / Plan
84y F with PMH significant for hypertension and prior CVA who presents to ED from [facility] for evaluation of labial wound. Patient states that she accidentally scratched herself about a week ago and started with pain and swelling in that
area. She has been applying heat with some improvement. The area has since opened and is now draining serosanguinous material. Patient was started on Keflex yesterday at [facility]. Today she was sent for further evaluation.
#Left labia abscess, spontaneously draining
Appreciate DOPE SPRAYER input, vulvar abscess was opened and necrotic exudate that was partially trimmed away, irrigated with saline at bedside 10/07
Recommend applying Santyl to the area and dressing changes twice a day
Appreciate ID input, continue IV Zosyn, follow-up on cultures
Holding Plavix in case she needs further interventions
PT rec HH
#Chronic bilateral lower extremity edema
Wound care consulted, compression stockings
#Essential hypertension
Continue lisinopril, hydrochlorothiazide
#Hyperlipidemia
Continue statin
#History of stroke
From [facility]
Hold Plavix for possible procedure
Continue aspirin, statin
#Obesity due to excess calories
Affects all aspects of care
DVT prophylaxis�subcu Lovenox
Full code
Total time spent to see the patient on the floor, examine the patient, review data and lab results, discuss treatment plan with patient, nursing staff around 40 minutes.
Physical Exam
General: Obese, no acute distress
HEENT: Normocephalic, Atraumatic, EOMI, MMM
Respiratory: Clear to Auscultation bilaterally
Cardiac: Normal S1/S2, Regular Rate and Rhythm
GI: Soft, Nontender, Nondistended, Normal Bowel Sounds
: 3x2cm abscess on left vulva that is open, what appears to be necrotic exudate - per DOPE SPRAYER
Extremities: No Clubbing, Cyanosis
Bilateral lower extremity edema, chronic bilateral lower extremity erythema
Neuro: Nonfocal/Grossly Intact
Psych: Calm, Cooperative
Anticipated Discharge: Within 24 hours
Subjective/Interval History
-
Date of Service: October 07, 2024
Patient denies labial pain. She had a bowel movement. No abdominal pain, no chest pain, no shortness of breath. No fever, no vomiting.
Objective Data
-
Labs:
Laboratory Results
10/07/24
04:12
WBC 7.4
Hgb 11.5 L
Hct 35.2 L
Plt Count 317
Sodium 139
Potassium 4.2
Chloride 105
Carbon Dioxide 28
BUN 25 H
Creatinine 0.8
Glucose 100 H
Calcium 9.3
Vital Signs:
Vital Signs
Temp Pulse Resp BP Pulse Ox
98.6 F 72 16 150/58 94
10/07/24 08:00 10/07/24 08:24 10/06/24 23:00 10/07/24 08:24 10/07/24 08:00
[2024-10-08] MEDS: VITAMIN D3 (cholecalciferol) 25 MCG PO (08:58)
[2024-10-08] MEDS: ORETIC 12.5 MG PO (08:58)
[2024-10-08] MEDS: B COMPLEX w/VITAMIN C 1 CAPLET PO (08:59)
[2024-10-08] MEDS: ZESTRIL 40 MG PO (09:00)
[2024-10-08] MEDS: THERAGRAN 1 TABLET PO (09:00)
[2024-10-08] MEDS: DESENEX/MITRAZOL/ZEASORB 1 APPLIC TOPICAL ×2 (09:01→20:31)
[2024-10-08] MEDS: SANTYL OINTMENT 1 APPLIC TOPICAL ×2 (09:01→20:30)
--- NOTE | 2024-10-08 12:40 | W.PN.ID1 ---
Date of Service
Date of Service: October 08, 2024
Today's Communication
Continue antibiotics for today.
Assessment / Plan
Left labia abscess; s/p spontaneous drainage
-Failed outpatient Keflex
Left labia cellulitis
Recommendations:
Continue with Zosyn for the present.
Await pending cultures to guide further antimicrobial therapy. Gram stain with gram-positive cocci.
Local care to the abscess cavity area.
Patient has being followed by AUTOMATIC GLUING MACHINE OPERATOR, and may require further debridement depending upon subsequent exams.
Updated Via Phone.
Chief Complaint
-: Other (Left labia abscess)
Subjective / Review of Systems
Review of Systems: No Fever and No Chills
Vital Signs / Physical Exam
Vital Signs
Vital Signs
Temp Pulse Resp BP Pulse Ox
98.6 F 71 20 131/50 94
10/08/24 07:14 10/08/24 09:00 10/08/24 07:14 10/08/24 09:00 10/08/24 07:14
Physical Exam
Constitutional: No Acute Distress, Comfortable and Non-toxic
Eyes: Sclera Anicteric
Pulmonary: Non Labored
Wound: Other (Left labia wound dressed.)
Neurological: Awake and Alert
Psychological: Calm
Objective Data
Lab Data
Lab Results
10/07/24 04:12
10/07/24 04:12
Estimated Creat Clear 57 ml/min 10/07/24 04:12
Lactic Acid 1.0 mmol/L (0.7-2.0) 10/06/24 22:57
Total Bilirubin 0.7 mg/dl (0.2-1.3) 10/06/24 17:34
AST 30 U/L (14-36) 10/06/24 17:34
ALT 21 U/L (0-35) 10/06/24 17:34
Alkaline Phosphatase 87 U/L (38-126) 10/06/24 17:34
Most recent labs reviewed.
Micro Results:
10/06/24 22:57 Wound Culture - Preliminary
Abscess Gram Stain - Preliminary
10/06/24 22:57 Blood Culture - Preliminary
Blood/Venous No Growth in 24 hours- Final report to follow
10/07/24 05:47 MRSA Screen - Pending
Nose
--- NOTE | 2024-10-08 12:53 | CM ---
Met with patient to obtain information for assessment. Patient stated that she lives at [facility] in [facility]isted Living. She gets assistance with dressing, bathing, ADLs and personal care. She uses a walker. She gets assistance with cleaning,
locksmith, laundry and she gets her meals at community. Patent's family lives close and can transport her to where she needs.
Patient has never had VN services.
She has not been to a SNF.
She has a prescription plan and uses, [facility] in [place] for all of her medications.
Patient's PCP is, Corrina Schroeder.
Plan: Case management will continue to follow and assist with discharge planning. Home/back to [facility] when cleared if at baseline.
--- NOTE | 2024-10-08 14:13 | CHAP ---
Emotional and spiritual support provided. Communion shared. Called her caodaism as requested: branch examiner will visit. Prayer blanket given.
[2024-10-08 15:15] VITALS: BP 117/67
[2024-10-08] MEDS: LOVENOX 40 MG SC (17:51)
--- NOTE | 2024-10-08 17:55 | PTCARENOTE ---
1640 Pt transferred to room 325-1 for contact precautions measures for positive MRSA of the nares. Pt oriented to environment, staff and call light system. Personal items and call light within reach. All needs met.
--- NOTE | 2024-10-08 21:09 | W.PN.OBG.DWH ---
Today's Communication / Plan
-
Continue IV abx
awaiting culture sensitivities
Recommend nursing for frequent diaper changing to avoid excessive moisture to region
Assessment/Plan
-
Left vulvar wound from draining abscess
-wound cultures are pending
-continue on zosyn IV for now
-santyl ointment for wound
-May need further debridement but this would have to be done under sedation
for patient pain control.
-Recommend nursing attn to more frequent diaper changing to avoid excess moisture to area
Subjective Data
-
Pt seen this evening, approximately 8:20pm. I was unable to come earlier due to extremely busy on labor unit with multiple deliveries/csections throughout day.
Pt sleepy, rousable. Agreed for me to perform exam. Reports pain in left vulvar area.
Objective Data
-
Laboratory Results
10/07/24 04:12
10/07/24 04:12
Vital Signs
Temp Pulse Resp BP Pulse Ox
97.8 F 83 20 117/67 95
10/08/24 15:15 10/08/24 15:15 10/08/24 15:15 10/08/24 15:15 10/08/24 15:15
Left vulva with wound from ruptured abscess approximately 3 x 2cm with exudative coating. Wound is tender to touch.
[2024-10-08] MEDS: CRESTOR 5 MG PO (21:24)
[2024-10-08 23:18] VITALS: BP 152/66
[2024-10-09] MEDS: ZOSYN 50 IV ×4 (03:12→21:06)
[2024-10-09 07:00] VITALS: BP 108/82
--- NOTE | 2024-10-09 07:59 | W.PN.OBG.DWH ---
Today's Communication / Plan
-
Continue with Zosyn
Await culture and sensitivities and ID guidance for antibiotics
Assessment/Plan
-
LEFT labial abscess-awaiting culture results, continue with Zosyn
Subjective Data
-
Patient saying she feels better.
Objective Data
-
Laboratory Results
10/07/24 04:12
10/07/24 04:12
Vital Signs
Temp Pulse Resp BP Pulse Ox
100.1 F 82 18 152/66 93
10/08/24 23:18 10/08/24 23:18 10/08/24 23:18 10/08/24 23:18 10/08/24 23:18
Vulva-Abscess continues with spontaneous drainage, size unchanged from last night's exam, still about 3x2 cm.
Extremities-no calf pain
[2024-10-09] MEDS: ZESTRIL 40 MG PO (08:20)
[2024-10-09] MEDS: THERAGRAN 1 TABLET PO (08:20)
[2024-10-09] MEDS: VITAMIN D3 (cholecalciferol) 25 MCG PO (08:20)
[2024-10-09] MEDS: B COMPLEX w/VITAMIN C 1 CAPLET PO (08:20)
[2024-10-09] MEDS: ASPIR LOW (ENTERIC COATED) 81 MG PO (08:20)
[2024-10-09] MEDS: ORETIC 12.5 MG PO (08:20)
--- NOTE | 2024-10-09 09:02 | W.PN.HOSP.TC ---
Today's Communication/Plan
-
see bold
Assessment / Plan
Assessment / Plan
84y F with PMH significant for hypertension and prior CVA who presents to ED from [facility] for evaluation of labial wound. Patient states that she accidentally scratched herself about a week ago and started with pain and swelling in that
area. She has been applying heat with some improvement. The area has since opened and is now draining serosanguinous material. Patient was started on Keflex yesterday at [facility]. Today she was sent for further evaluation.
#Left labia abscess, spontaneously draining
Appreciate DIESEL CRANE OPERATOR input, vulvar abscess was opened and necrotic exudate that was partially trimmed away, irrigated with saline at bedside 10/07
No further I&D needed per Wei. Recommend applying Santyl to the area and dressing changes twice a day
Cultures currently growing Proteus, gram-negative bacilli, MRSA
Antibiotics changed to vancomycin and Zosyn per ID
Holding Plavix in case she needs further interventions
For probable discharge tomorrow on oral antibiotics, PT rec HH
#Chronic bilateral lower extremity edema
Wound care consulted, compression stockings
#Essential hypertension
Continue lisinopril, hydrochlorothiazide
#Hyperlipidemia
Continue statin
#History of stroke
From [facility]
Hold Plavix for possible procedure
Continue aspirin, statin
#Obesity due to excess calories
Affects all aspects of care
DVT prophylaxis�subcu Lovenox
Full code
Total time spent to see the patient on the floor, examine the patient, review data and lab results, discuss treatment plan with patient, nursing staff around 38 minutes.
Physical Exam
General: Obese, no acute distress
HEENT: Normocephalic, Atraumatic, EOMI, MMM
Respiratory: Clear to Auscultation bilaterally
Cardiac: Normal S1/S2, Regular Rate and Rhythm
GI: Soft, Nontender, Nondistended, Normal Bowel Sounds
: 3x2cm abscess on left vulva that is open, what appears to be necrotic exudate - per DIESEL CRANE OPERATOR
Extremities: No Clubbing, Cyanosis
Bilateral lower extremity edema, chronic bilateral lower extremity erythema
Neuro: Nonfocal/Grossly Intact
Psych: Calm, Cooperative
Anticipated Discharge: Within 24 hours
Subjective/Interval History
-
Date of Service: October 09, 2024
Patient denies vulvar pain. She feels well. No chest pain, no shortness of breath. No fever, no vomiting.
Objective Data
-
Vital Signs:
Vital Signs
Temp Pulse Resp BP Pulse Ox
97.7 F 80 16 108/82 93
10/09/24 07:00 10/09/24 07:00 10/09/24 07:00 10/09/24 07:00 10/09/24 07:00
I&O
10/08/24 10/09/24 10/10/24
06:59 06:59 06:59
Intake Total 700 / 700 240 / 240
Balance 700 / 700 240 / 240
[2024-10-09] MEDS: SANTYL OINTMENT 1 APPLIC TOPICAL ×2 (10:52→21:07)
[2024-10-09] MEDS: DESENEX/MITRAZOL/ZEASORB 1 APPLIC TOPICAL ×2 (10:52→21:06)
[2024-10-09 15:00] VITALS: BP 118/46
[2024-10-09] MEDS: VANCOCIN 540 MG IV (15:10)
--- NOTE | 2024-10-09 16:45 | PHA.VAN.IN ---
Assessment
- Assessment
Renal Function: Appears similar to baseline
Concomitant Antimicrobials: piperacillin/tazobactam
AUC Dosing Plan
- Dosing Variables
Dosing Weight (kg): 99
Dosing CrCl (ml/min): 57
Vd coefficient (L/kg): 0.6-0.7
- Empiric Dosing
Initial / Loading Dose: 2000mg - 10/09 15:10
Maintenance Regimen: Vanc 1500mg Q24H starting 10/10 0600
Estimated AUC (mcg*h/mL): 435 - 507
Estimated Peak (mcg*h/mL): 30.4 - 35.5
Estimated Trough (mcg/ml): 10 - 11.1
Estimated Half Life (H): 13.4
- Monitoring
No levels ordered at this time: consider levels in next few days
Pharmacokinetics Vancomycin I
- -
Patient Age: 84
Patient Sex: Female
Vancomycin Day #: 1
Indication: Skin And Soft Tissue
Requesting Provider: Dr. Julio
Pertinent Antimicrobial Allergies:
no pertinent antibiotic allergies
Height / Weight:
Height 5 ft 5 in
Actual Weight 98.628 kg
Pertinent Past Medical History: BMI ~36
- Vital Signs / Lab Results
Temp Pulse Resp BP Pulse Ox
98.0 F 70 16 118/46 94
10/09/24 15:00 10/09/24 15:00 10/09/24 15:00 10/09/24 15:00 10/09/24 15:00
Lab Results - Hematology
10/06/24 10/07/24
17:34 04:12
WBC 8.7 7.4
Lab Results - Chemistry
10/06/24 10/07/24
17:34 04:12
BUN 27 H 25 H
Creatinine 0.8 0.8
Estimated Creat Clear 57
Albumin 4.2
10/06/24
22:57
Lactic Acid 1.0
Microbiology Results
10/06/24 22:57 Wound Culture - Preliminary
Abscess Proteus species
Gram negative bacilli
Staph aureus MRSA
Gram Stain - Preliminary
10/06/24 22:57 Blood Culture - Preliminary
Blood/Venous No Growth in 48 hours- Final report to follow
10/07/24 05:47 MRSA Screen - Final
Nose Staph aureus MRSA
[2024-10-09] MEDS: LOVENOX 40 MG SC (17:12)
[2024-10-09] MEDS: CRESTOR 5 MG PO (21:06)
[2024-10-09 23:00] VITALS: BP 123/57
[2024-10-10] MEDS: ZOSYN 50 IV ×2 (04:58→09:18)
[2024-10-10] MEDS: VANCOCIN 530 MG IV (05:41)
[2024-10-10 07:00] VITALS: BP 102/49
[2024-10-10] MEDS: SANTYL OINTMENT 1 APPLIC TOPICAL ×2 (07:59→20:22)
[2024-10-10] MEDS: B COMPLEX w/VITAMIN C 1 CAPLET PO (08:00)
[2024-10-10] MEDS: VITAMIN D3 (cholecalciferol) 25 MCG PO (08:00)
[2024-10-10] MEDS: ASPIR LOW (ENTERIC COATED) 81 MG PO (08:00)
[2024-10-10] MEDS: THERAGRAN 1 TABLET PO (08:00)
[2024-10-10] MEDS: ORETIC PO (08:06)
[2024-10-10] MEDS: ZESTRIL PO (08:06)
--- NOTE | 2024-10-10 08:38 | W.PN.HOSP.TC ---
Addendum entered and electronically signed by Floyd Barahona MD 10/10/24 14:25:
Blood pressure soft at 102/49 this morning.
Lisinopril/hydrochlorothiazide were held 10/10.
Will discontinue hydrochlorothiazide, reduce lisinopril to 20 mg daily with hold parameters.
Original Note:
Today's Communication/Plan
-
see bold
Assessment / Plan
Assessment / Plan
84y F with PMH significant for hypertension and prior CVA who presents to ED from [facility] for evaluation of labial wound. Patient states that she accidentally scratched herself about a week ago and started with pain and swelling in that
area. She has been applying heat with some improvement. The area has since opened and is now draining serosanguinous material. Patient was started on Keflex yesterday at [facility]. Today she was sent for further evaluation.
#Left labia abscess, spontaneously draining
Appreciate COMMERCIAL APPRAISER input, vulvar abscess was opened and necrotic exudate that was partially trimmed away, irrigated with saline at bedside 10/07
No further I&D needed per COMMERCIAL APPRAISER. Recommend applying Santyl to the area and dressing changes twice a day
Cultures currently growing Proteus, E. Coli, & MRSA
Antibiotics changed to vancomycin and Zosyn per ID
Holding Plavix in case she needs further interventions
10/10, NH has cleared her for discharge on doxycycline and Keflex x 7 days, however [facility] cannot take her back today
Plan for discharge tomorrow on oral antibiotics, PT rec HH
#Chronic bilateral lower extremity edema
Wound care consulted, compression stockings
#Essential hypertension
Continue lisinopril, hydrochlorothiazide
#Hyperlipidemia
Continue statin
#History of stroke
From [facility]
Hold Plavix for possible procedure
Continue aspirin, statin
#Obesity due to excess calories
Affects all aspects of care
DVT prophylaxis�subcu Lovenox
Full code
Total time spent to see the patient on the floor, examine the patient, review data and lab results, discuss treatment plan with patient, nursing staff around 37 minutes.
Physical Exam
General: Obese, no acute distress
HEENT: Normocephalic, Atraumatic, EOMI, MMM
Respiratory: Clear to Auscultation bilaterally
Cardiac: Normal S1/S2, Regular Rate and Rhythm
GI: Soft, Nontender, Nondistended, Normal Bowel Sounds
: 3x2cm abscess on left vulva that is open, what appears to be necrotic exudate - per COMMERCIAL APPRAISER
Extremities: No Clubbing, Cyanosis
Bilateral lower extremity edema, chronic bilateral lower extremity erythema
Neuro: Nonfocal/Grossly Intact
Psych: Calm, Cooperative
Anticipated Discharge: Within 24 hours
Subjective/Interval History
-
Date of Service: October 10, 2024
Patient denies labia pain. No chest pain, no shortness of breath. No fever, no vomiting.
Objective Data
-
Vital Signs:
Vital Signs
Temp Pulse Resp BP Pulse Ox
97.7 F 75 16 102/49 95
10/10/24 07:00 10/10/24 08:06 10/10/24 07:00 10/10/24 08:06 10/10/24 07:00
I&O
10/09/24 10/10/24 10/11/24
06:59 06:59 06:59
Intake Total 240 / 240 1320 / 1320 600 / 600
Balance 240 / 240 1320 / 1320 600 / 600
[2024-10-10] MEDS: DESENEX/MITRAZOL/ZEASORB 1 APPLIC TOPICAL ×2 (09:20→20:21)
--- NOTE | 2024-10-10 10:14 | PHA.VAN.FU ---
Vancomycin Assessment / Plan
- Assessment
Renal Function: Stable
WBC's are: Trending Down
In the past 24 hrs, patient has been: Afebrile
Concomitant Antimicrobials: Piperacillin-tazobactam
- Dosing Plan
Continue: Vanc 1500mg IV q24H
- Monitoring Plan
No level(s) ordered at this time: Consider levels in the next few days.
- Follow Up
Pharmacy will continue to follow.
Vancomycin Follow UP
- -
Patient Age: 84
Patient Sex: Female
Vancomycin Day #: 2
Indication: Skin And Soft Tissue
Requesting Provider: Dr. Julio
Pertinent Antimicrobial Allergies:
no pertinent antibiotic allergies
Height / Weight:
Height 5 ft 5 in
Actual Weight 98.628 kg
Pertinent Past Medical History: BMI ~36
- Vital Signs / Lab Results
Temp Pulse Resp BP Pulse Ox
97.7 F 75 16 102/49 95
10/10/24 07:00 10/10/24 08:06 10/10/24 07:00 10/10/24 08:06 10/10/24 07:00
Microbiology Results
10/06/24 22:57 Wound Culture - Final
Abscess Proteus mirabilis
Escherichia coli
Staph aureus MRSA
Gram Stain - Final
10/06/24 22:57 Blood Culture - Preliminary
Blood/Venous No Growth in 72 hours- Final report to follow
10/07/24 05:47 MRSA Screen - Final
Nose Staph aureus MRSA
--- NOTE | 2024-10-10 11:45 | W.PN.OBG.DWH ---
Today's Communication / Plan
-
Continue to follow wound for improvement in hospital in case of need for further I&D in OR
Continue with wound care with Santyl ointment
Continue with Vanco and Zosyn
Assessment/Plan
-
Assessment:LEFT vulvar abscess with spontaneous drainage, cultures + for MRSA, E coli and proteus showing improvement clinically and subjectively.
ID with updated antibiotic recommendations.
Plan: Recommend continued wound care, IV antibiotics. Question need to undergo I&D in OR (for sedation, would be unable to do at bedside) at this time given clinical improvement. Would recommend inpatient observation at least through tomorrow
Subjective Data
-
Patient reports feeling much better, vulva without much pain.
No vaginal bleeding
Objective Data
-
Laboratory Results
10/07/24 04:12
10/07/24 04:12
Vital Signs
Temp Pulse Resp BP Pulse Ox
97.7 F 75 16 102/49 95
10/10/24 07:00 10/10/24 08:06 10/10/24 07:00 10/10/24 08:06 10/10/24 08:00
Vulva-LEFT labial lesion unchanged in size but less red. Spontaneous drainage site in midline open about 0.75 cm, exudate noted, removed with NSS soaked gauze, bed obvious through this is without additional necrotic tissue apparent.
--- NOTE | 2024-10-10 13:24 | W.PN.UPDATE ---
Update Note
Progress Note Update
As patient cleared for discharge by ID, and vulva much improved, am comfortable with discharge today, return to office for re-evaluation in 10-14 days., sooner if symptoms worsen.
--- NOTE | 2024-10-10 13:36 | W.PN.ID1 ---
Date of Service
Date of Service: October 10, 2024
Today's Communication
Continue antibiotics. Narrow to Keflex and doxycycline.
Assessment / Plan
Left labia abscess; s/p spontaneous drainage
-Failed outpatient Keflex
Left labia cellulitis
Recommendations:
Cultures reviewed, with recovery of Proteus mirabilis, E. coli and MRSA.
Narrow antibiotics to cephalexin 500 mg p.o. 4 times daily, along with doxycycline 100 mg p.o. twice daily, to continue for an additional 7 days.
Local care to the abscess cavity area.
Chief Complaint
-: Other (Left labia abscess)
Subjective / Review of Systems
Patient seen and examined. Reports no labial discomfort at present.
Review of Systems: No Fever and No Chills
Vital Signs / Physical Exam
Vital Signs
Vital Signs
Temp Pulse Resp BP Pulse Ox
97.7 F 75 16 102/49 95
10/10/24 07:00 10/10/24 08:06 10/10/24 07:00 10/10/24 08:06 10/10/24 08:00
Physical Exam
Constitutional: No Acute Distress, Comfortable and Non-toxic
Pulmonary: Non Labored
Gastrointestinal: Non Distended
Neurological: Awake and Alert
Objective Data
Lab Data
Lab Results
10/07/24 04:12
10/07/24 04:12
Estimated Creat Clear 57 ml/min 10/07/24 04:12
Lactic Acid 1.0 mmol/L (0.7-2.0) 10/06/24 22:57
Total Bilirubin 0.7 mg/dl (0.2-1.3) 10/06/24 17:34
AST 30 U/L (14-36) 10/06/24 17:34
ALT 21 U/L (0-35) 10/06/24 17:34
Alkaline Phosphatase 87 U/L (38-126) 10/06/24 17:34
Most recent labs reviewed.
Micro Results:
10/06/24 22:57 Wound Culture - Final
Abscess Proteus mirabilis
Escherichia coli
Staph aureus MRSA
Gram Stain - Final
10/06/24 22:57 Blood Culture - Preliminary
Blood/Venous No Growth in 72 hours- Final report to follow
10/07/24 05:47 MRSA Screen - Final
Nose Staph aureus MRSA
Care Review
Plan reviewed with: Physician (Hospitalist)
--- NOTE | 2024-10-10 13:40 | CM ---
Patient from [facility] with Dx Left labia abscess. Room air. Receiving PO Abx. Seen by wound care nurse- BID wound care. PT recommends HH.
Spoke with patient's son Chester; discussed patient's BID wound care needs and that [facility] needs to approve her return if their nurse can provide this care. Son says daughter in law is going out of town and is not available to assist with
wound care. Discussed patient's mobility needs as per PT. He is hoping [facility] will accept her back with [facility] however was informed that they may require patient to go to SNF for wound care & rehab.
Phone calls x2 to [facility]; left messages requesting callback re; accepting patient back with her wound care needs.
Plan follow up with [facility] re; d/c needs.
[2024-10-10 15:00] VITALS: BP 126/50
[2024-10-10] MEDS: LOVENOX 40 MG SC (17:12)
[2024-10-10] MEDS: KEFLEX 500 MG PO ×2 (17:12→22:22)
[2024-10-10] MEDS: VIBRAMYCIN 100 MG PO (20:21)
[2024-10-10] MEDS: CRESTOR 5 MG PO (22:21)
[2024-10-10 22:57] VITALS: BP 144/86
[2024-10-11 08:18] VITALS: BP 141/71
[2024-10-11] MEDS: KEFLEX 500 MG PO ×4 (09:04→22:15)
[2024-10-11] MEDS: VITAMIN D3 (cholecalciferol) 25 MCG PO (09:04)
[2024-10-11] MEDS: ASPIR LOW (ENTERIC COATED) 81 MG PO (09:04)
[2024-10-11] MEDS: VIBRAMYCIN 100 MG PO ×2 (09:04→22:15)
[2024-10-11] MEDS: ZESTRIL 20 MG PO (09:04)
[2024-10-11] MEDS: B COMPLEX w/VITAMIN C 1 CAPLET PO (09:04)
[2024-10-11] MEDS: THERAGRAN 1 TABLET PO (09:05)
[2024-10-11] MEDS: SANTYL OINTMENT 1 APPLIC TOPICAL ×2 (09:05→22:15)
[2024-10-11] MEDS: DESENEX/MITRAZOL/ZEASORB 1 APPLIC TOPICAL ×2 (09:06→22:14)
--- NOTE | 2024-10-11 10:06 | PN.CDI ---
CDI
- -
CDI:
Physician Documentation Request
Admit Date: 10/08/24 09:36
Dear Doctor Dilia,
Please review the following and provide your response in the progress notes.
Clinical Indicators:
Pt admitted with left labia abscess.
10/07 WON RN: 'Inner buttocks small healing stage 2 pressure injuries.'
Physician documentation of the type and location of wounds is required for compliant documentation. Based on the above clinical findings and your assessment, please provide the following in your progress note:
1. Location of the ulcer/wound, including laterality.
2. Type (etiology) of ulcer/wound:
Buttocks healing stage 2 pressure injury POA
Buttocks non-pressure injury POA
Other
Use of terms such as suspected, likely, concern for, or probable (associated with a specific diagnosis that is being evaluated, monitored, or treated as if it exists) are acceptable and can be coded in the inpatient setting, when documented at the
time of discharge.
Thank you,
Ml Garrison RN, BSN
CDI Specialist
[place] Text
Please use your independent medical judgment in providing your response.
*Source: National Pressure Ulcer Advisory Panel (NPUAP)
--- NOTE | 2024-10-11 10:32 | W.PN.OBG.DWH ---
Today's Communication / Plan
-
Continue oral abx
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
Assessment/Plan
-
84yo with Left labial abscess
-Wound Culture: E. coli, MRSA, Proteus
-Per ID Abx narrowed to Keflex and Doxycycline to complete an oral course for another week.
-Patient is improved clinically and is stable for dc home just awaiting tow picker
-F/u with our office in 10 days to reevaluate.
Subjective Data
-
feels well. No pelvic pain. No n/v/f/c. tolerating PO intake. waiting to be d/c today.
Objective Data
-
Laboratory Results
10/07/24 04:12
10/07/24 04:12
Vital Signs
Temp Pulse Resp BP Pulse Ox
99.5 F 74 24 141/71 96
10/11/24 08:18 10/11/24 09:04 10/11/24 08:18 10/11/24 09:04 10/11/24 08:18
Gen: well appearing, nad
Pelvic: Left labia with slight erythema and induration but no drainage or exudate present, none on the gauze that was covering the abscess either. No necrotic tissue. no ttp.
Blood Cx: NG
Wound Cx: E. coli, Proteus, MRSA
--- NOTE | 2024-10-11 11:58 | W.PN.ID1 ---
Date of Service
Date of Service: October 11, 2024
Today's Communication
Continue antibiotics.
Assessment / Plan
Left labia abscess; s/p spontaneous drainage
-Failed outpatient Keflex
Left labia cellulitis
Recommendations:
Cultures with Proteus mirabilis, E. coli and MRSA.
Continue cephalexin 500 mg p.o. 4 times daily, along with doxycycline 100 mg p.o. twice daily, to continue for an additional 6 days.
Local care to the abscess cavity area.
Chief Complaint
-: Other (Left labia abscess)
Subjective / Review of Systems
Review of Systems: No Fever, No Chills and Other (No groin pain)
Vital Signs / Physical Exam
Vital Signs
Vital Signs
Temp Pulse Resp BP Pulse Ox
99.5 F 74 24 141/71 96
10/11/24 08:18 10/11/24 09:04 10/11/24 08:18 10/11/24 09:04 10/11/24 08:18
Physical Exam
Constitutional: No Acute Distress, Comfortable and Non-toxic
Eyes: Sclera Anicteric
Pulmonary: Non Labored
Gastrointestinal: Non Distended
Neurological: Awake and Alert
Objective Data
Lab Data
Lab Results
10/07/24 04:12
10/07/24 04:12
Estimated Creat Clear 57 ml/min 10/07/24 04:12
Lactic Acid 1.0 mmol/L (0.7-2.0) 10/06/24 22:57
Total Bilirubin 0.7 mg/dl (0.2-1.3) 10/06/24 17:34
AST 30 U/L (14-36) 10/06/24 17:34
ALT 21 U/L (0-35) 10/06/24 17:34
Alkaline Phosphatase 87 U/L (38-126) 10/06/24 17:34
Most recent labs reviewed.
Micro Results:
10/06/24 22:57 Blood Culture - Preliminary
Blood/Venous No Growth in 4 days- Final report to follow
10/06/24 22:57 Wound Culture - Final
Abscess Proteus mirabilis
Escherichia coli
Staph aureus MRSA
Gram Stain - Final
10/07/24 05:47 MRSA Screen - Final
Nose Staph aureus MRSA
--- NOTE | 2024-10-11 13:00 | W.DS.TRANS ---
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
-
Discharge Instructions:
Discharge Diagnosis/Procedures Left labial abscess, spontaneously draining,
chronic bilateral lower extremity edema
Diet Low Fat,Low Cholesterol
Activity As tolerated
Instructions:
Stand-Alone Forms:
Changes to Home Medications: No
Discharge Medications:
DC Medications w/original date entered in [facility]
cholecalciferol (vitamin D3) 25 mcg (1,000 unit) tablet 2,000 units PO DAILY Supplement 02/02/19
rosuvastatin 5 mg tablet 5 mg PO HS High cholesterol 11/16/19
clopidogrel 75 mg tablet 75 mg PO DAILY Blood clot prevention/tx ##0 05/23/20
aspirin 81 mg tablet,delayed release 1 tab PO DAILY Blood clot prevention/tx 07/05/22
lisinopril 40 mg tablet 40 mg PO DAILY Blood Pressure 07/05/22
vitamin B complex 1 cap PO DAILY Supplement 07/05/22
acetaminophen 325 mg tablet 650 mg PO Q6HPRN PRN mild pain 01/11/23
cranberry fruit 450 mg tablet (cranberry) 450 mg PO HS Supplement 10/06/24
nystatin 100,000 unit/gram topical powder (Klayesta) 1 applic topical BID groin 10/06/24
therapeutic multivitamin 1 tab PO DAILY Supplement 10/06/24
turmeric 400 mg capsule 800 mg PO DAILY Supplement 10/06/24
cephalexin 500 mg capsule 500 mg PO QID 7 days #28 caps 10/10/24
doxycycline monohydrate 100 mg capsule 100 mg PO BID 7 days #14 caps 10/10/24
Home Medication Changes
Pending Results: No
--- NOTE | 2024-10-11 13:12 | W.PN.HOSP.TC ---
Addendum entered and electronically signed by Joni Dobbs DO 10/11/24 13:29:
Inner buttocks small healing stage 2 pressure injuries.
Original Note:
Today's Communication/Plan
-
Discharge
Assessment / Plan
Assessment / Plan
Gen-awake, alert, NAD, obese
HEENT-NC, AT, anicteric, clear oral mm
Neck-supple
CV-reg, no M, +S1/S2
Lungs-clear B/L
Abd-soft, NT, ND
Ext-no edema
Musculoskeletal-no cyanosis, clubbing
Skin-warm and dry
Neuro-grossly non-focal
Psych-calm, cooperative
84y F with PMH significant for hypertension and prior CVA who presents to ED from [facility] for evaluation of labial wound. Patient states that she accidentally scratched herself about a week ago and started with pain and swelling in that
area. She has been applying heat with some improvement. The area has since opened and is now draining serosanguinous material. Patient was started on Keflex yesterday at [facility]. Today she was sent for further evaluation.
Left labia abscess, spontaneously draining
Appreciate DIRECTOR PAID MEDIA input, vulvar abscess was opened and necrotic exudate that was partially trimmed away, irrigated with saline at bedside 10/07
No further I&D needed per DIRECTOR PAID MEDIA. Recommend applying Santyl to the area and dressing changes twice a day
Cultures currently growing Proteus, E. Coli, & MRSA
10/10, ID has cleared her for discharge on doxycycline and Keflex x 7 days
Chronic bilateral lower extremity edema
Wound care consulted, compression stockings
Essential hypertension
Continue lisinopril, hydrochlorothiazide
Hyperlipidemia
Continue statin
History of stroke
From [facility]
Resume Plavix. Continue aspirin.
Obesity due to excess calories
DVT prophylaxis�subcu Lovenox
Full code
Dispo -stable for discharge back to [facility]. Case management aware. Outpatient follow-up.
32 minutes spent in discharge process.
Anticipated Discharge: Today
Subjective/Interval History
-
Date of Service: October 11, 2024
Patient seen and examined. No complaints.
Objective Data
-
Vital Signs:
Vital Signs
Temp Pulse Resp BP Pulse Ox
99.5 F 74 24 141/71 96
10/11/24 08:18 10/11/24 09:04 10/11/24 08:18 10/11/24 09:04 10/11/24 08:18
I&O
10/10/24 10/11/24 10/12/24
06:59 06:59 06:59
Intake Total 1320 / 1320 1320 / 1320
Balance 1320 / 1320 1320 / 1320
Review of Systems
-
History Source: Patient
All other systems: Reviewed and negative
--- NOTE | 2024-10-11 14:58 | CM ---
Addendum entered by ZAIN Dailey 10/11/24 17:29:
Still as of yet have not heard back from [facility]. Spoke with director who stated to consult wound care in the am to determine if it is still a stage 2 wound and if necessary, attempt to have patient go to a SNF.
RN updated and patient updated as well.
Addendum entered by ZAIN Dailey 10/11/24 15:30:
Received notification from RN that she spoke with [facility] who stated that patient's needs regarding her care are surpassing what can be provided at facility.
Placed a call back and an RN named Akiko answered, who stated that [facility] stated that they would be unable to do wound care. Explanation provided that there is no wound care and that there is not a facility in which she can go that would apply
ointment and gauze (that insurance would cover). Requested to speak with Marilyn but she was in a meeting and could not talk. Spoke with RN who stated that she is going to call back in a little bit so hopefully Marilyn is done with her meeting.
RN updated.
Original Note:
Received notification that patient is medically cleared for discharge. Indication on behalf of therapy is for home health. Placed a call to [facility] and spoke with a tech named, Debby. She stated that patient's RN is Marilyn, and she would be the
one to determine whether she can return and if she is at baseline. Debby was advised that indication was made for [facility] and she stated that Marilyn would know who they would contract with.
She stated that patient's RN, Marilyn will call or
RN can call R [phone]

Plan: Case management will continue to follow and assist with discharge planning. Patient's RN, will call Marilyn for confirmation that she can take patient back today.
[2024-10-11 15:57] VITALS: BP 148/65
[2024-10-11] MEDS: LOVENOX 40 MG SC (17:51)
[2024-10-11] MEDS: CRESTOR 5 MG PO (22:15)
[2024-10-11 23:00] VITALS: BP 166/70
[2024-10-12 07:38] VITALS: BP 152/61
[2024-10-12] MEDS: KEFLEX 500 MG PO ×4 (09:54→21:26)
[2024-10-12] MEDS: ZESTRIL 20 MG PO (09:54)
[2024-10-12] MEDS: THERAGRAN 1 TABLET PO (09:54)
[2024-10-12] MEDS: B COMPLEX w/VITAMIN C 1 CAPLET PO (09:54)
[2024-10-12] MEDS: VIBRAMYCIN 100 MG PO ×2 (09:54→21:27)
[2024-10-12] MEDS: VITAMIN D3 (cholecalciferol) 25 MCG PO (09:54)
[2024-10-12] MEDS: DESENEX/MITRAZOL/ZEASORB 1 APPLIC TOPICAL ×2 (09:55→21:29)
[2024-10-12] MEDS: ASPIR LOW (ENTERIC COATED) 81 MG PO (09:59)
[2024-10-12] MEDS: SANTYL OINTMENT 1 APPLIC TOPICAL ×2 (12:57→21:27)
--- NOTE | 2024-10-12 13:48 | W.PN.HOSP.TC ---
Today's Communication/Plan
-
Discharge
Assessment / Plan
Assessment / Plan
Gen-awake, alert, NAD, obese
HEENT-NC, AT, anicteric, clear oral mm
Neck-supple
CV-reg, no M, +S1/S2
Lungs-clear B/L
Abd-soft, NT, ND
Ext-no edema
Musculoskeletal-no cyanosis, clubbing
Skin-warm and dry
Neuro-grossly non-focal
Psych-calm, cooperative
84y F with PMH significant for hypertension and prior CVA who presents to ED from [facility] for evaluation of labial wound. Patient states that she accidentally scratched herself about a week ago and started with pain and swelling in that
area. She has been applying heat with some improvement. The area has since opened and is now draining serosanguinous material. Patient was started on Keflex yesterday at [facility]. Today she was sent for further evaluation.
Left labia abscess, spontaneously draining
Appreciate CHAIN SAW OPERATOR input, vulvar abscess was opened and necrotic exudate that was partially trimmed away, irrigated with saline at bedside 10/07
No further I&D needed per CHAIN SAW OPERATOR. Recommend applying Santyl to the area and dressing changes twice a day
Cultures currently growing Proteus, E. Coli, & MRSA
10/10, ID has cleared her for discharge on doxycycline and Keflex x 7 days, last day October 17.
Inner buttocks small healing stage 2 pressure injuries -continue local wound care. I asked wound nurse to assess her wounds today.
Chronic bilateral lower extremity edema
Wound care consulted, compression stockings
Essential hypertension
Continue lisinopril, hydrochlorothiazide
Hyperlipidemia
Continue statin
History of stroke
From [facility]
Resume Plavix. Continue aspirin.
Obesity due to excess calories
DVT prophylaxis�subcu Lovenox
Full code
Dispo -stable for discharge back to [facility]. Case management aware. Outpatient follow-up.
Anticipated Discharge: Today
Subjective/Interval History
-
Date of Service: October 12, 2024
Patient seen and examined. No complaints.
Objective Data
-
Vital Signs:
Vital Signs
Temp Pulse Resp BP Pulse Ox
97.4 F 61 16 152/61 99
10/12/24 07:38 10/12/24 07:38 10/12/24 07:38 10/12/24 07:38 10/12/24 07:38
I&O
10/11/24 10/12/24 10/13/24
06:59 06:59 06:59
Intake Total 1320 / 1320 960 / 960
Balance 1320 / 1320 960 / 960
Review of Systems
-
History Source: Patient
All other systems: Reviewed and negative
--- NOTE | 2024-10-12 14:56 | CM ---
Addendum entered by ZAIN Dailey 10/12/24 15:30:
Attending stated that patient can transfer tonight if [facility] will take. Updated RN. She will call son to determine if he will be in town in time to taker her to [facility]. Her RN will provide 2nd wound care tonight.
Original Note:
Placed another call to Marilyn at [facility] who stated that she still would not be able to accommodate patient's care. Patient asked that CM speak with her son, Jaspal, who is not on chart, however she would like for him to be a contact. She put him on
speaker phone. He stated that his brother, Chester is out of town, however, [facility] and he and Chester will perform wound care. Patient agreeable despite the location of the wound. Jaspal stated that he is going to call [facility], speak with
Marilyn, and advise her that family will come twice a day until the care is no longer indicated. CM contact information provided to patient's son. Will update attending and RN.
Plan: Case management will continue to follow and assist with discharge planning. Back to [facility] tomorrow with family assistance.
[2024-10-12 15:19] VITALS: BP 149/56
--- NOTE | 2024-10-12 15:37 | PTCARENOTE ---
Spoke with pt's son named Jaspal over the phone and son said a paid caregiver/family friend named Joselyn will be by to pick pulling machine tender patient tomorrow morning to go back to her facility. Jaspal will be doing the daily left labial wound care at her facility.
Jaspal is unable to make it in tonight or tomorrow for wound care teaching. RN expressed wound care being very simple, and directions will be on d/c paperwork. Son expressed that he has done more complicated care for his mom in the past and is sure
this is something he can do without in person teaching.
[2024-10-12] MEDS: LOVENOX 40 MG SC (17:58)
[2024-10-12] MEDS: CRESTOR 5 MG PO (21:26)
[2024-10-12 23:00] VITALS: BP 150/57
[2024-10-13 07:16] VITALS: BP 141/59
[2024-10-13] MEDS: VIBRAMYCIN 100 MG PO (09:06)
[2024-10-13] MEDS: SANTYL OINTMENT 1 APPLIC TOPICAL (09:06)
[2024-10-13] MEDS: VITAMIN D3 (cholecalciferol) 25 MCG PO (09:07)
[2024-10-13] MEDS: KEFLEX 500 MG PO (09:07)
[2024-10-13] MEDS: B COMPLEX w/VITAMIN C 1 CAPLET PO (09:07)
[2024-10-13] MEDS: THERAGRAN 1 TABLET PO (09:07)
[2024-10-13] MEDS: ASPIR LOW (ENTERIC COATED) 81 MG PO (09:07)
[2024-10-13] MEDS: ZESTRIL 20 MG PO (09:07)
[2024-10-13] MEDS: DESENEX/MITRAZOL/ZEASORB 1 APPLIC TOPICAL (09:08)
--- NOTE | 2024-10-13 11:21 | CM ---
Received a call from Jaspal, patient's son, who stated that he has spoken with Akiko at [facility] who confirmed that patient can return as long as there will be BID wound care administered by family or by caregivers. Sent Jaspal a list of
private caregivers. He confirmed receipt. Placed a call to [facility] to speak with Kaity to confirm that everyone is in agreement with this but had to leave a voice mail. Requested return calls with any concerns.
Plan: Case management will continue to follow and assist with discharge planning. Transfer back to [facility] as long as facility is in agreement.
[2024-10-13 11:30] VITALS: BP 123/66
--- NOTE | 2024-10-13 11:46 | W.PN.ID1 ---
Date of Service
Date of Service: October 13, 2024
Today's Communication
Continue abx
Assessment / Plan
Left labia abscess; s/p spontaneous drainage
-Failed outpatient Keflex
Left labia cellulitis
Recommendations:
Cultures with Proteus mirabilis, E. coli and MRSA.
Continue cephalexin 500 mg p.o. 4 times daily, along with doxycycline 100 mg p.o. twice daily, to continue for an additional 4 days.
Local care to the abscess cavity area.
Chief Complaint
-: Other (Left labia abscess)
Subjective / Review of Systems
Review of Systems: No Fever and No Chills
Vital Signs / Physical Exam
Vital Signs
Vital Signs
Temp Pulse Resp BP Pulse Ox
97.2 F 56 20 141/59 97
10/13/24 07:16 10/13/24 09:07 10/13/24 07:16 10/13/24 09:07 10/13/24 07:16
Physical Exam
Constitutional: No Acute Distress, Comfortable and Non-toxic
Pulmonary: Non Labored
Wound: Other (labia wound dressed)
Neurological: Awake and Alert
Psychological: Calm
Objective Data
Lab Data
Lab Results
10/07/24 04:12
10/07/24 04:12
Estimated Creat Clear 57 ml/min 10/07/24 04:12
Lactic Acid 1.0 mmol/L (0.7-2.0) 10/06/24 22:57
Total Bilirubin 0.7 mg/dl (0.2-1.3) 10/06/24 17:34
AST 30 U/L (14-36) 10/06/24 17:34
ALT 21 U/L (0-35) 10/06/24 17:34
Alkaline Phosphatase 87 U/L (38-126) 10/06/24 17:34
Most recent labs reviewed.
Micro Results:
10/06/24 22:57 Blood Culture - Final
Blood/Venous No Growth - Final Report
10/06/24 22:57 Wound Culture - Final
Abscess Proteus mirabilis
Escherichia coli
Staph aureus MRSA
Gram Stain - Final
10/07/24 05:47 MRSA Screen - Final
Nose Staph aureus MRSA
== END 2024-10-13 12:12 | disposition home health service (06) | DRG 747 ==
LOC: 3 WEST ACU 09:36
PROVIDERS: Nurse Practitioner Family; Physician Assistant; Student in an Organized Health Care Education/Training Program; ADMITTING PHYSICIAN Hospitalist; ATTENDING PHYSICIAN Hospitalist; CONSULT PHYSICIAN Internal Medicine Infectious Disease; CONSULT PHYSICIAN Obstetrics & Gynecology; EMERGENCY PHYSICIAN Emergency Medicine; FAMILY PHYSICIAN Hospitalist
PROC: 0UBMXZZ Excision of Vulva, External Approach (ICD-10-PCS; 2024-10-07)
DX: N76.4 Abscess of vulva (principal); L89.322 Pressure ulcer of left buttock, stage 2; L89.312 Pressure ulcer of right buttock, stage 2; I10 Essential (primary) hypertension; K62.3 Rectal prolapse; E66.9 Obesity, unspecified; Z68.36 Body mass index [BMI] 36.0-36.9, adult; N76.2 Acute vulvitis; B95.62 Methicillin resistant Staphylococcus aureus infection as the cause of diseases classified elsewhere; B96.20 Unspecified Escherichia coli [E. coli] as the cause of diseases classified elsewhere; B96.4 Proteus (mirabilis) (morganii) as the cause of diseases classified elsewhere; Z86.73 Personal history of transient ischemic attack (TIA), and cerebral infarction without residual deficits; Z75.1 Person awaiting admission to adequate facility elsewhere
CPT/HCPCS: 80048; 80053; 83605; 85025; 85027; 87040; 87070; 87077; 87147; 87186; 87205; 96365; 97116; 97163; 99284

== ENCOUNTER → 2024-10-26 12:26 | Outpatient (REF) | payer OTHER, SELFPAY | LOC: WOUND 12:26 | PROVIDERS: ATTENDING PHYSICIAN Surgery; FAMILY PHYSICIAN Nurse Practitioner Adult Health | DX: S31.40XA Unspecified open wound of vagina and vulva, initial encounter (principal); E66.01 Morbid (severe) obesity due to excess calories; I10 Essential (primary) hypertension; Z86.73 Personal history of transient ischemic attack (TIA), and cerebral infarction without residual deficits; X58.XXXA Exposure to other specified factors, initial encounter | CPT/HCPCS: 99213 ==

== ENCOUNTER → 2025-02-18 13:38 | Outpatient (REF) | payer OTHER, SELFPAY ==
[2025-02-18 16:48] LABS: Urine Character Cloudy (Clear)
[2025-02-18 17:11] LABS: Urine White Cell >100 /HPF (0-5)
== END ==
LOC: OLABMERCHI 13:38
PROVIDERS: ATTENDING PHYSICIAN Hospitalist
DX: N39.9 Disorder of urinary system, unspecified (principal); R30.9 Painful micturition, unspecified
CPT/HCPCS: 81003; 81015; 87077; 87086; 87186

== ENCOUNTER 2025-03-01 16:40 | Inpatient (IN) | payer OTHER, SELFPAY ==
[2025-03-01 10:38] VITALS: BP 126/66
--- NOTE | 2025-03-01 11:41 | ED.GENMED ---
History of Present Illness
General
Chief Complaint: Skin Problem
Source: patient
Exam Limitations: none
Time Seen by Provider: 03/01/25 11:17
Nursing documentation reviewed up to this point in time: agreed with
History of Present Illness
History of Present Illness:
84-year-old female with a past medical history as noted presents to the emergency room for evaluation of leg pain, redness, swelling. Patient reports that she has chronic edema in the legs chronically worse on the left after an old injury. She
says that she has had wounds on the left leg in the past and been seen at the wound center. She says that over the past week she has noticed increased swelling in the leg on the left compared to her typical. She says she is having increasing pain
in the leg and she has had new wounds open up and weeping of the leg and it has become much more red than usual. She saw a nurse at her living facility who recommended that she go to the ER for assessment. She denies fever or chills. She denies
any trauma or injury. She denies any chest pain or shortness of breath or any other acute complaints. She does note that she was recently on a short course of antibiotics for a UTI but cannot recall which one.
Past History
Past History
ED Past Medical History: CVA, HTN, Hypercholesterolemia and Other (UTI, Anemia-iron. )
ED Past Surgical History: (X 3), Gynecological (Hysterectomy, ) and Orthopedic (Laminectomy with Fusion. Left and right hip replacements. )
Social History
Tobacco: Non-smoker
Alcohol: None
Drug: None
Personal:
Living: alone
Employment: Not employed
Family History
Family History: Other
Review of Systems
Review of Systems
All Other Systems: ROS reviewed and negative except as documented in HPI and ROS
Constitutional: Denies fever or chills
Respiratory: Denies trouble breathing
Cardiac: Denies chest pain
ABD/GI: Denies abdominal pain
Musculoskeletal: Reports edema
Skin: Reports other (Redness)
Neurological: Denies dizzy or headache
Phy Exam
Physical Exam
Physical Exam:
General: Awake, alert, oriented x3; no acute distress
Head: Normocephalic, atraumatic
Eyes: Conjunctiva normal, sclera anicteric
Throat: Airway intact, handling secretions
Neck: Trachea midline, supple without meningismus
Lungs: Breathing comfortably no distress
Heart: Regular rate
Skin: Patient has chronic venous stasis changes in the right lower extremity; on exam of the left lower extremity she has erythema extending from the proximal calf down and encompassing the entire foot; she has marked edema in the left leg, weeping
wounds anteriorly on the henderson; she does have palpable posterior tibialis pulse but no dorsalis pedis by palp, palpable popliteal pulse; entire leg is warm and diffusely tender but there is no crepitus
Extremities: No edema in extremities, equal pulses in all extremities
Scores
Heart Failure Risk
Heart Failure Risk Score: Not Applicable
Heart Score for Chest Pain Patients
STEMI patient?: Not applicable
Withdrawal Assessment of Alcohol
Withdrawal Assessment Completed?: Not applicable
Course
Orders/Labs/Results
Orders:
Orders
03/01/25 11:18
US Periph Venous LOWER Ext LT Urgent
Comment:
Reason For Exam: LLE swelling
03/01/25 11:45
Blood Culture Q30M
CIARAN Source: Blood/Venous
Specimen Description:
03/01/25 12:30
Complete Blood Count/With Diff Urgent
Wound Culture [Wound/Abscess/Other Culture] Urgent
CIARAN Source: Leg
Specimen Description: Left
Date Specimen was Collected: 03/01/25
Time Specimen was Collected: 12:09
03/01/25 12:31
Blood Culture Q30M
CIARAN Source: Blood/Venous
Specimen Description:
03/01/25 12:59
Comprehensive Metabolic Panel Urgent
03/01/25 13:39
Zosyn 3.375 grams IVPB NOW Piperacillin/Tazo 3.375 Gram [Zosyn] 3.375 gram in 50 ml IV NOW
03/01/25 13:40
*Vancomycin 2,000 mg Loading Dose (consider for >/= 70 kg) Vancomycin [Vancocin] 2,000 mg 0.9% Sodium Chloride 500 ml [Nss] 500 ml IV NOW
Abnormal Lab Results
03/01/25
12:30
RBC 4.07 L 10^6/uL
(4.20-5.40)
Hct 36.0 L %
(37.0-47.0)
Abs Immat Gran (auto) 0.1 H 10^3/uL
(0-0.05)
Absolute Neuts (auto) 7.9 H 10^3/uL
(1.4-6.5)
Absolute Monos (auto) 0.9 H 10^3/uL
(0.1-0.6)
Immature Gran % 0.7 H %
(0-0.5)
Neutrophils % 76.0 H %
(42.2-75.2)
Lymphocytes % 12.6 L %
(20.5-51.1)
03/01/25 12:30
Vital Signs
Initial and Last Documented VS:
Initial Vital Signs
Temp Pulse Resp BP Pulse Ox
36.7 C 96 18 126/66 96
03/01/25 10:38 03/01/25 10:38 03/01/25 10:38 03/01/25 10:38 03/01/25 10:38
Last Documented Vital Signs
Temp Pulse Resp BP Pulse Ox
36.7 C 69 18 128/71 99
03/01/25 10:38 03/01/25 12:00 03/01/25 12:00 03/01/25 12:00 03/01/25 12:00
MDM/Problems Addressed
Differential Diagnosis Includes:
Claudication, cellulitis, lymphedema, DVT
MDM/Problems Addressed:
84-year-old female presents with pain, redness, swelling and wounds on the left lower extremity over the past week. Vitals and exam as above�clinically concern for cellulitis and wound infection. Could be some underlying vascular disease as well
but nothing to suggest an acute arterial occlusion. Will check labs, wound and blood cultures. Check ultrasound to rule out DVT. Given extent of infection and rapid progression reported I do think hospitalization for initial IV antibiotics is
indicated for this patient.
Ultrasound shows no evidence for DVT. CBC shows no significant leukocytosis. Vital signs have been stable. Will plan admit as above for IV antibiotic treatment. Wound and blood culture sent off. Discussed case with hospitalist.
*Radiology
Radiology exam reviewed: radiology read reviewed
*Pulse Oximetry
SaO2: 96
Oxygen Mode of Delivery: Room air
Patient hypoxic: no (96%)
*Critical Care Note
Total Time (30-74mins, 75-104mins- exclusive of procedures): Not Applicable
Data Reviewed
Source: patient and records
ED Attending Note
-
Portions of this chart may have been created with voice recognition software.� Occasional wrong word or��sound alike� substitutions may have occurred due to the inherent limitations of voice recognition software.
Discharge Plan
Departure
Patient Disposition: Admit
Date of Disposition: 03/01/25
Time of Disposition: 13:42
Admit to doctor: Ajay
Presentation/result/management discussed w/ accepting MD/DO: Hospitalist
Discharge Problem:
Cellulitis
Prescriptions:
No Action
cholecalciferol (vitamin D3) 1,000 UNITS tablet
2,000 units PO DAILY
rosuvastatin 5 MG tablet
5 mg PO HS
clopidogrel 75 MG tablet
75 mg PO DAILY Qty: 0 0RF
lisinopril 40 mg Tablet
40 mg PO DAILY
vitamin B complex Capsule
1 cap PO DAILY
aspirin 81 MG tablet,delayed release (DR/EC)
1 tab PO DAILY
Patient Comments:
started 05/21 1800
acetaminophen 325 mg Tablet
650 mg PO Q6HPRN PRN (Reason: mild pain)
therapeutic multivitamin Tablet
1 tab PO DAILY
nystatin [Klayesta] 100,000 unit/gram Powder
1 applic TOPICAL BID
cranberry 450 mg Tablet
450 mg PO HS
turmeric 400 mg Capsule
800 mg PO DAILY
doxycycline monohydrate 100 mg capsule
100 mg PO BID 7 Days Qty: 14 0RF
cephalexin 500 mg capsule
500 mg PO QID 7 Days Qty: 28 0RF
Referrals:
UNKNOWN - PT DOES,NOT KNOW [Unknown Provider]
Interventions
Interventions:
*Risk Screen - Suicide Last Done: 03/01/25 10:38
*General Assessment Last Done: 03/01/25 10:38
ED-Skin Assessment Last Done: 03/01/25 12:18
Discharge Date and Time
Print Language: FAROESE
[2025-03-01 12:00] VITALS: BP 128/71
[2025-03-01 12:18] VITALS: BMI 33.8
[2025-03-01 12:52] LABS: Hematocrit 36.0 % (37.0-47.0); Hemoglobin 12.0 g/dL (12.0-16.0); Mean Corp Hgb Conc. 33.3 g/dL (33.0-37.0); Mean Corpuscular Volume 88.5 fL (81.0-99.0); Nucleated Red Blood Cells % 0 %; Platelet Count 329 10^3/uL (130-400); Red Cell Dist. Width 13.7 % (11.5-14.5)
--- NOTE | 2025-03-01 14:01 | CM ---
Call from Jeremy[facility]
Pt is current with them
[2025-03-01] MEDS: ZOSYN 50 IV (14:28)
--- NOTE | 2025-03-01 14:57 | W.PN.UPDATE ---
Update Note
Progress Note Update
Seen and examined by me independently in collaboration with the medical billing and coding instructor.
Past medical history/social history/medication/allergies reviewed.
Lab data and imaging data reviewed.
84-year-old lady with past medical history as listed in resident note H&P presents with a progressive left leg swelling, redness and increasing pain over the last few days. The increasing pain prompted her to come to the ED. No fever or chills.
Left leg is swollen up to the knee with significant redness involving the foot and the leg. No obvious demarcation of the border noted. She had remote history of leg wounds and cellulitis. Denies any issues with the right leg currently. No GI
symptoms. Denies shortness of breath or chest pain.
Lives in a local assisted living facility.
Heart sound S1 plus S2 heard regular. Chest was clear. Abdomen soft.
Right leg without significant edema but old stasis skin changes noted. No evidence of cellulitis.
No clinical parameters to suggest sepsis. Peripheral ultrasound shows no evidence of DVT.
Admit to hospital due to severe case of cellulitis involving the large area of the leg and associated edema.
Nonpurulent. Pain is not out of proportion to the findings. Doubt necrotizing fasciitis. Check CPK.
Consult wound care. Compressive wound dressing. No history of PAD. Hard to palpate DP or posterior tibial. Right leg DP is palpable.
Start on IV Ancef 2 g every 8 hours once creatinine is available. Check MRSA screen.
Patient wishes to be full code.
[2025-03-01 16:00] VITALS: BP 141/64
[2025-03-01] MEDS: VANCOCIN 540 MG IV (16:00)
--- NOTE | 2025-03-01 16:05 | HPS.HSE ---
Family Physician
-
Family Physician: Corrina Schroeder DO
Chief Complaint
-
Left leg pain, swelling, and redness
History of Present Illness
Patient is a 63-year-old female with past medical history of CVA, hypertension, hyperlipidemia, UTIs, anemia, and labial abscess who presented to the [facility] emergency department due to increasing pain, redness, and swelling in her left
lower extremity from just below the knee into the foot. Patient states she has had chronic lower extremity swelling that is worse on the left for approximately 4 years, which has required regular wound care over the last few months. Patient notes
the pain in her left lower extremity has worsened over the last few months, with particular worsening over the past week. Patient notes that her leg has developed a weeping discharge over the last week, though without any signs of pus. Patient
denies any trauma, injury, or any new wounds on her left lower extremity recently. [place] [facility] [place] the facility identified the suspected infection in her left lower extremity, which prompted the
patient to present to the hospital. Patient denies any associated symptoms, including fever, fatigue, chills, chest pain, shortness of breath, or lightheadedness. There is no pain in the leg at rest, but there is pain with movement or palpation.
Patient denies any changes in motor or sensation in her left lower extremity.
Medical History
Past Medical History
Past Medical History: Reports CVA, HTN, Hypercholesterolemia and Other (UTIs, anemia, labial abscess)
Past Surgical History: Reports , Gynocological (Hysterectomy) and Orthopedic (Left and right hip replacements; laminectomy with fusion)
Social History
Tobacco: Non-smoker
Alcohol: None
Drug: None
Living: Assisted Living
Employment: Retired
Family History
Family History: Not pertinent
Allergies / Home Medications
Allergies reflects when Allergies were last updated in [facility].
Home Medications with original date entered in [facility]
Allergy/Medication List:
Allergies
Allergy/AdvReac Type Severity Reaction Status Date / Time
No Known Allergies Allergy Unverified 03/01/25 10:40
Home Medications
cholecalciferol (vitamin D3) 25 mcg (1,000 unit) tablet 2,000 units PO DAILY Supplement 02/02/19
rosuvastatin 5 mg tablet 5 mg PO HS High cholesterol 11/16/19
clopidogrel 75 mg tablet 75 mg PO DAILY Blood clot prevention/tx ##0 05/23/20
aspirin 81 mg tablet,delayed release 1 tab PO DAILY Blood clot prevention/tx 07/05/22
vitamin B complex 1 cap PO DAILY Supplement 07/05/22
acetaminophen 325 mg tablet 650 mg PO Q6HPRN PRN mild pain 01/11/23
cranberry fruit 450 mg tablet (cranberry) 450 mg PO HS Supplement 10/06/24
therapeutic multivitamin 1 tab PO DAILY Supplement 10/06/24
turmeric 400 mg capsule 400 mg PO DAILY Supplement 10/06/24
hydrochlorothiazide 12.5 mg tablet 12.5 mg PO DAILY 03/01/25
lisinopril 40 mg tablet 40 mg PO DAILY 03/01/25
Review of Systems
-
History Source: Patient
Constitutional: Denies Fever, Fatigue or Chills
EENT: Reports No Symptoms
Respiratory: Denies Cough or Trouble Breathing
Cardiac: Denies Chest Pain, Diaphoresis, Palpitations or Syncope
Abdomen/GI: Denies Abdominal Pain, Nausea, Vomiting or Diarrhea
Musculoskeletal: Reports Edema
Skin: Reports Other (Erythematous and tense skin and left lower extremity from just below the knee into the foot)
Neurological: Denies Headache, Weakness or Numbness
Physical Exam
Vital Signs
Vital Signs
Temp Pulse Resp BP Pulse Ox
98.0 F 69 18 128/71 99
03/01/25 10:38 03/01/25 12:00 03/01/25 12:00 03/01/25 12:00 03/01/25 12:00
Physical Exam
General: Well Developed, Well Nourished, No Apparent Distress, Comfortable and Conversant; No Fever, Chills or Sweats
HEENT: NormoCephalic and Atraumatic
Respiratory: Clear and Non Labored Respirations; No Wheezes or Crackles
Cardiac: S1/S2, Regular Rhythm and Peripheral Edema; No Bradycardia, Tachycardia, Murmur, Rub or Gallop
GI: Soft, Non Tender and Normal Bowel Sounds
Musculoskeletal: No Cyanosis and Edema, Left Lower Extremity (Marked nonpitting edema relative to the right); No Edema, Right Lower Extremity
Skin: Warm, Dry and Other (Left lower extremity markedly edematous, erythematous, tender to palpation, warm compared to the right)
Neuro: AO x 3, No Motor Deficits and No Sensory Deficits
Psych: Calm
Laboratory Results
-
03/01/25 12:30
Laboratory Results
Total Bilirubin Cancelled 03/01/25 12:31
AST Cancelled 03/01/25 12:31
ALT Cancelled 03/01/25 12:31
Alkaline Phosphatase Cancelled 03/01/25 12:31
Impression/Plan
-
IMPRESSION: Patient is a 63-year-old female with past medical history of CVA, hypertension, hyperlipidemia, UTIs, anemia, and labial abscess who presented to the [facility] emergency department due to increasing pain, redness, and swelling
of her left lower extremity. On presentation, the patient was afebrile with stable vital signs. Lab work on presentation was unremarkable with no leukocytosis, and blood and wound cultures are pending. Additionally, left lower extremity
ultrasound revealed no DVT. The patient was admitted for further treatment for left lower extremity cellulitis.
PLAN:
#Cellulitis of left lower extremity
Physical exam reveals markedly erythematous, edematous, warm, and TTP LLE spanning a large area from just below the left knee into the patient's left foot
Motor and sensation are intact in LLE, with capillary refill indicating good perfusion
Vancomycin and piperacillin�tazobactam administered in the ED
Plan to initiate cefazolin 2 g IV every 8 hours, pending creatinine (BMP pending)
Blood culture, wound culture, and MRSA screen pending; monitor and plan to adjust antibiotics based on results
Trend temperature curve, CBC - currently AFVSS, no leukocytosis
Wound care consulted
#Hypertension
Continue home HCTZ, lisinopril
#Hyperlipidemia
Continue home rosuvastatin
#History of CVA
Continue home aspirin, clopidogrel
DVT PPx: Lovenox
CODE STATUS: Full
[2025-03-01 17:05] LABS: ALT (SGPT) 15 U/L (0-35); AST (SGOT) 21 U/L (14-36); Albumin 3.3 g/dl (3.5-5.0); Alkaline Phosphatase 61 U/L (38-126); Blood Urea Nitrogen 46 mg/dl (7-17); Calcium 8.9 mg/dl (8.4-10.2); Carbon Dioxide 26 mmol/L (22-30); Chloride 108 mmol/L (98-107); Estimated Creatinine Clearance 45 ml/min; Glucose 107 mg/dl (70-99); Potassium 4.4 mmol/L (3.5-5.1); Sodium 138 mmol/L (135-145); Total Protein 5.9 g/dl (6.3-8.2); eGFR 54.87
[2025-03-01 18:35] VITALS: BP 147/61; BMI 33.6
[2025-03-01] MEDS: LOVENOX 40 MG SC (19:33)
[2025-03-01] MEDS: TYLENOL 650 MG PO (19:47)
[2025-03-01] MEDS: ANCEF 10 IV (20:27)
[2025-03-01] MEDS: CRESTOR 5 MG PO (21:24)
[2025-03-01 23:00] VITALS: BP 107/40
[2025-03-02] MEDS: ANCEF 10 IV ×2 (03:30→11:53)
[2025-03-02 07:17] VITALS: BP 128/46
[2025-03-02] MEDS: ASPIR LOW (ENTERIC COATED) 81 MG PO (07:40)
[2025-03-02] MEDS: PLAVIX 75 MG PO (07:41)
[2025-03-02] MEDS: ZESTRIL 40 MG PO (07:41)
[2025-03-02] MEDS: ORETIC 12.5 MG PO (07:42)
[2025-03-02] MEDS: TYLENOL 650 MG PO ×2 (07:43→20:48)
[2025-03-02 08:11] LABS: Hematocrit 35.1 % (37.0-47.0); Hemoglobin 11.4 g/dL (12.0-16.0); Mean Corp Hgb Conc. 32.5 g/dL (33.0-37.0); Mean Corpuscular Volume 89.3 fL (81.0-99.0); Nucleated Red Blood Cells % 0 %; Platelet Count 299 10^3/uL (130-400); Red Cell Dist. Width 13.7 % (11.5-14.5)
[2025-03-02] MEDS: ULTRAM 50 MG PO ×2 (08:36→18:33)
[2025-03-02 08:51] LABS: Blood Urea Nitrogen 33 mg/dl (7-17); Calcium 8.9 mg/dl (8.4-10.2); Carbon Dioxide 25 mmol/L (22-30); Chloride 110 mmol/L (98-107); Estimated Creatinine Clearance 45 ml/min; Glucose 102 mg/dl (70-99); Potassium 4.5 mmol/L (3.5-5.1); Sodium 140 mmol/L (135-145); eGFR 54.87
--- NOTE | 2025-03-02 10:02 | WOUNDNOTE ---
BILATERAL LOWER LEGS
--- NOTE | 2025-03-02 10:02 | WOUNDNOTE ---
LEFT LATERAL LOWER LEG/ANKLE
--- NOTE | 2025-03-02 10:03 | WOUNDNOTE ---
LEFT LATERAL LOWER LEG/ANKLE
--- NOTE | 2025-03-02 10:04 | WOUNDNOTE ---
LEFT MEDIAL LOWER LEG/ANKLE
--- NOTE | 2025-03-02 10:05 | WOUNDNOTE ---
LEFT DORSAL 1ST MTH FOOT
--- NOTE | 2025-03-02 10:11 | WOUNDNOTE ---
[facility] RN note: Patient admitted with cellulitis of L leg.
See H&P for complete history. Patient states she lives at [facility] in assisted living.
PMH: CVA, mild dementia, venous leg ulcers-goes to [facility], UTI, urinary incontinence, ASCVD.
Wound Location and type/assessment: Patient admitted with: LLE cellulitis, skin appears burned(Venous) and patient complains of pain. Mild edema, weeping small amt of serous drainage. Very dry skin both legs, +Hemosiderosis. +Palpable pedal pulses.
She states she has not been using luis wraps recently. Patient turned with assist, Sacrum intact, mild MASD in gluteal skin folds. Mild fungal rash on anterior thighs and perineum. Patient was wearing depends with an additional charlee pad that was
saturated with urine, removed and cleaned skin. Heels blanchable red.
Appetite: good.
Pressure redistribution devices in place: Versa care air. Pillow placed under calves. Encouraged leg elevation.
Plan: Vashe soak to L lower leg applied for 5 minutes then local wound care. Moisturized legs and feet with Vaseline, will order mineral oil. Luis wraps applied knee high both legs. Adhesive foams applied to heels to protect and sacral silicone foam
to sacrum. Calazime applied to buttock skin folds. Will order Miconazole powder for thighs and perineum.
Will confirm orders with hospitalist and updated IVET Lutz. Care plan to be updated and will follow as needed.
Recommend follow up at wound care center upon discharge.
--- NOTE | 2025-03-02 12:23 | CON.ID ---
Consultation
-
Date/Time Consultation Requested: March 02, 2025 0858
Date/Time Consultation Performed: March 02, 2025 1225
Requesting Provider: Dr. Isaiah Malave
Performing Provider: Dr. Luna Pena
Reason for Consultation: Severe left lower extremity cellulitis
Chief Complaint / Past History
Chief Complaint
Left leg swelling, redness, weeping
History of Present Illness
History obtained from the patient as well as from her family friend. She is an 84-year-old female with history of hypertension, history of venous stasis ulcers previously followed at wound care center until spring 2024 when all wounds healed.
However, patient has not been compliant with daily compression. Compression applied few times a week only. She then developed left lower extremity edema which progressively got worse with blisters and serous drainage. Leg became red and
uncomfortable. She presented to the ER March 01. She received vancomycin and Zosyn. Today antibiotic de-escalated to cefazolin. Patient denies fevers or chills. Per family friend, patient was confused last night and now improved mental status.
Past History
Additional Past Medical History:
Hx CVA
HTN
Dyslipidemia
Venous stasis
Additional Past Surgical History:
Hysterectomy
Bilateral hip replacement
Allergy History:
No Known Allergies Allergy (Unverified 03/01/25 10:40)
Medications Reviewed: Yes
Current Antibiotics:
Cefazolin 2 g IV every 8 hours
Social History
Tobacco: Non-Smoker
Alcohol: None
Drug: None
Personal: Single
Living: Assisted Living
Employment: Retired
Family History
Family History: Not Pertinent
Review of Systems
Review of Systems
General: Negative Fever, Chills or Change in Appetite
HEENT: Negative Stiff Neck, Sinus Problems or Headache
Cardiovascular: Negative Chest Pain or Dyspnea
Respiratory: Negative Dyspnea or Cough
Gasteroenterology: Negative Nausea, Vomiting or Diarrhea
Genital / Urological: Negative Dysuria or Flank Pain
Endocrine: Negative Weakness
All systems: All other systems were reviewed and were negative
Vital Signs
Temp Pulse Resp BP Pulse Ox
99.1 F 72 20 128/46 95
03/02/25 07:17 03/02/25 07:17 03/02/25 07:17 03/02/25 07:17 03/02/25 07:17
Physical Exam
Physical Exam
Constitutional: No Acute Distress and Comfortable
Eyes: No Conjunctival Hemorrhage and Sclera Anicteric
Pulmonary: Clear
Gastrointestinal: Soft, Non Tender, Non Distended and Normal Bowel Sounds
Genito-Urinary: Negative CVA Tenderness
Extremities: Edema (LLE >>RLE), Erythema (LLE distal half to ankle: large superficial wound+ erythema, warm) and Venous Insufficiency (BLE)
Neurological: AO x 3
Lab / Diagnostic Study Results
03/02/25 07:25
03/02/25 07:25
Abs Immat Gran (auto) 0.0 10^3/uL (0-0.05) 03/02/25 07:25
Absolute Neuts (auto) 5.1 10^3/uL (1.4-6.5) 03/02/25 07:25
Absolute Lymphs (auto) 1.0 10^3/uL (1.2-3.4) L 03/02/25 07:25
Absolute Monos (auto) 0.6 10^3/uL (0.1-0.6) 03/02/25 07:25
Absolute Basos (auto) 0.0 10^3/uL (0-0.2) 03/02/25 07:25
Immature Gran % 0.6 % (0-0.5) H 03/02/25 07:25
Neutrophils % 72.8 % (42.2-75.2) 03/02/25 07:25
Lymphocytes % 14.5 % (20.5-51.1) L 03/02/25 07:25
Monocytes % 8.8 % (1.7-9.3) 03/02/25 07:
Eosinophils % 3.0 % (0-6) 03/02/25 07:25
Basophils % 0.3 % (0-2) 03/02/25 07:25
Microbiology Results
Micro:
03/01/25 12:30 Wound Culture - Preliminary
Leg - Left Gram Stain - Preliminary
03/01/25 19:39 MRSA Screen - Pending
Nose
03/01/25 15:01 Blood Culture - Pending
Blood/Venous
03/01/25 12:31 Blood Culture - Pending
Blood/Venous
03/01/25 Peripheral vascular US: No sonographic evidence for LEFT lower extremity deep venous thrombosis, noting nonvisualization of the calf veins.
Assessment / Plan
# LLE cellulitis
# LLE venous stasis dermatitis
# Noncompliance with compression
# hx MRSA colonization
- Discussed with patient the importance of leg compression and elevation.
- Given hx of MRSA on skin,replace cefazolin with Vancomycin for now.
--- NOTE | 2025-03-02 14:03 | W.PN.HOSP.TC ---
Addendum entered and electronically signed by Branden Martinez MD 03/02/25 15:59:
Seen and examined by me independently in collaboration with the medical and scientific illustrator.
Lab data and imaging data reviewed.
Addendum as below :
Patient with pain which she rated as 10 out of 10 this morning but got much benefit with tramadol. Improved swelling noted. No fever or chills.
Await culture data.
Continue with IV Ancef. Consult ID.
Original Note:
Today's Communication/Plan
-
Continue cefazolin 2 g IV every 8 hours for treatment of LLE cellulitis
Monitor temperature curve, CBC
Assessment / Plan
Assessment / Plan
Patient is a 63-year-old female with past medical history of CVA, hypertension, hyperlipidemia, UTIs, anemia, and labial abscess who presented to the [facility] emergency department due to increasing pain, redness, and swelling of her left
lower extremity. On presentation, the patient was afebrile with stable vital signs. Lab work on presentation was unremarkable with no leukocytosis, and blood and wound cultures are pending. Additionally, left lower extremity ultrasound revealed
no DVT. The patient was admitted for further treatment for left lower extremity cellulitis.
#Cellulitis of left lower extremity
On presentation, physical exam revealed markedly erythematous, edematous, warm, and TTP LLE spanning a large area from just below the left knee into the patient's left foot
Motor and sensation are intact in LLE, with palpable DP pulse and capillary refill indicating good perfusion
Cellulitis improving clinically, with less edema, tenderness to palpation, and erythema that on presentation
Continue cefazolin 2 g IV every 8 hours
Discontinued vancomycin and piperacillin�tazobactam after initial administration in the ED
Blood culture: NGTD
Wound culture and MRSA screen pending
Trend temperature curve, CBC - currently AFVSS, no leukocytosis
Pain control with acetaminophen, tramadol as needed
Infectious disease evaluation pending
Infectious disease, wound care following
#Anemia
Hemoglobin 11.4 today, decreased slightly from 12.0 on presentation
Etiology suspected dilutional
Monitor H&H, clinical status
Transfuse for hemoglobin <7
#Hypertension
Continue home HCTZ, lisinopril
#Hyperlipidemia
Continue home rosuvastatin
#History of CVA
Continue home aspirin, clopidogrel
DVT PPx: Lovenox
CODE STATUS: Full
Anticipated Discharge: 24 - 48 hours
Subjective/Interval History
-
Date of Service: March 02, 2025
Patient was seen at the bedside on hospital day #2. Nursing reports NAEO. Patient states, 'I feel better.' Patient did report 10/10 pain in her left lower extremity this morning. Pain medication was increased accordingly, and her pain is now
better controlled.
Objective Data
-
Labs:
Laboratory Results
03/02/25
07:25
WBC 7.0
Hgb 11.4 L
Hct 35.1 L
Plt Count 299
Sodium 140
Potassium 4.5
Chloride 110 H
Carbon Dioxide 25
BUN 33 H
Creatinine 1.0
Glucose 102 H
Calcium 8.9
Vital Signs:
Vital Signs
Temp Pulse Resp BP Pulse Ox
99.1 F 72 20 128/46 95
03/02/25 07:17 03/02/25 07:17 03/02/25 07:17 03/02/25 07:17 03/02/25 07:17
Review of Systems
-
History Source: Patient
Constitutional: Denies Fever, Fatigue or Chills
EENT: Reports No Symptoms Reported
Respiratory: Denies Cough, Trouble Breathing or Wheezing
Cardiac: Denies Chest Pain, Palpitations or Syncope
Abdomen/GI: Denies Abdominal Pain, Nausea, Vomiting or Diarrhea
Genitourinary: Denies Dysuria or Difficulty Voiding
Musculoskeletal: Reports Edema (Left lower extremity)
Skin: Reports Other (Erythematous, edematous left lower extremity with small sores)
Neuro: Denies Headache, Weakness, Numbness or Lightheadedness
Physical Exam
-
General: Well Developed, Well Nourished, No Apparent Distress, Comfortable and Conversant
HEENT: Normocephalic and Atraumatic
Respiratory: Clear to Auscultation and Non Labored Respirations; Negative Wheezes or Crackles
Cardiac: Regular Rhythm, S1/S2 and Other (DP pulse palpable in LLE); Negative Murmur, Rub or Gallop
GI: Soft, Nontender and Normal Bowel Sounds
Musculoskeletal: No Cyanosis and Edema, Left Lower Extrem (Less edematous, erythematous, TTP than yesterday; less weeping in LLE relative to yesterday)
Skin: Warm and Dry
Neuro: AO x 3
Psych: Calm
[2025-03-02 15:00] VITALS: BP 114/59
--- NOTE | 2025-03-02 16:03 | PHA.VAN.IN ---
Assessment
- Assessment
Renal Function: SCR Appears Elevated from baseline (10/07/24 BASELINE SCR: 0.8)
Concomitant Antimicrobials: NONE
- Previous Dosing Experience
Previous Regimen: 1500MG IV Q24H
Date of Regimen: 10/10/24
Provided Trough of: UNKNOWN
Provided AUC of: 507 PREDICTED
Patient's SCR is: Elevated compared to previous dosing experience (10/10/24 SCR = 0.8)
Patient's weight is: Decreased compared to previous dosing experience (10/10/24 WT = 98.6 KG)
AUC Dosing Plan
- Dosing Variables
Dosing Weight (kg): 91.7
Dosing CrCl (ml/min): 45
Vd coefficient (L/kg): 0.7
- Empiric Dosing
Initial / Loading Dose: 2GM
Maintenance Regimen: 1250MG IV Q24H
Estimated AUC (mcg*h/mL): 481
Estimated Peak (mcg*h/mL): 30.8
Estimated Trough (mcg/ml): 12.0
Estimated Half Life (H): 16.6
Pharmacokinetics Vancomycin I
- -
Patient Age: 84
Patient Sex: Female
Vancomycin Day #: 1
Indication: Skin And Soft Tissue (LLE CELLULITIS)
Requesting Provider: SAEID
Height / Weight:
Height 5 ft 5 in
Actual Weight 91.654 kg
Pertinent Past Medical History: HX OF MRSA
- Vital Signs / Lab Results
Temp Pulse Resp BP Pulse Ox
99.1 F 72 20 128/46 95
03/02/25 07:17 03/02/25 07:17 03/02/25 07:17 03/02/25 07:17 03/02/25 07:17
Lab Results - Hematology
03/01/25 03/02/25
12:30 07:25
WBC 10.4 7.0
Lab Results - Chemistry
03/01/25 03/01/25 03/02/25
12:31 16:44 07:25
BUN Cancelled 46 H 33 H
Creatinine Cancelled 1.0 1.0
Estimated Creat Clear Cancelled 45 45
Albumin Cancelled 3.3 L
Microbiology Results
03/01/25 15:01 Blood Culture - Preliminary
Blood/Venous No Growth in 24 hours- Final report to follow
03/01/25 12:31 Blood Culture - Preliminary
Blood/Venous No Growth in 24 hours- Final report to follow
03/01/25 12:30 Wound Culture - Preliminary
Leg - Left Gram Stain - Preliminary
--- NOTE | 2025-03-02 16:26 | CM ---
CM reviewed chart, call placed to [facility] to obtain patients PLOF. GEORGE spoke with nurse, Radha, regarding patient. Per nurse, patient mostly WC bound, can self propel, can ambulate with RW in apartment. Patient is current with Jeremy, will
place [facility] referral. Per nurse, patient confused, mostly keeps to herself, refuses showers. Patient PCP Corrina Schroeder, pharmacy [facility]. Patient may benefit from PT/OT evals prior to d/c. Currently on IV antibiotics. CM will continue to
follow for all discharge planning needs.
Plan; return to [facility] with Jeremy likely, watch for SNF needs
[2025-03-02] MEDS: LOVENOX 40 MG SC (17:49)
[2025-03-02] MEDS: DESENEX/MITRAZOL/ZEASORB 1 APPLIC TOPICAL (20:01)
[2025-03-02] MEDS: CRESTOR 5 MG PO (20:03)
[2025-03-02 23:24] VITALS: BP 105/48
[2025-03-03] MEDS: VANCOCIN 275 MG IV (06:01)
[2025-03-03 07:05] VITALS: BP 140/46
--- NOTE | 2025-03-03 07:43 | W.PN.HOSP.TC ---
Addendum entered and electronically signed by Branden Martinez MD 03/03/25 13:53:
Seen and examined by me independently in collaboration with the medical attendant.
Lab data data reviewed.
Addendum as below :
Improving left leg cellulitis with decreased swelling, redness and pain.
MRSA screen positive.
Appreciate ID input-continue with IV vancomycin for today and reevaluate in AM.
Continue with compression dressing.
Original Note:
Today's Communication/Plan
-
Continue vancomycin for treatment of LLE cellulitis
Plan to transition to oral antibiotic regimen of doxycycline and amoxicillin upon discharge
Continue to monitor clinical status
Assessment / Plan
Assessment / Plan
Patient is a 63-year-old female with past medical history of CVA, hypertension, hyperlipidemia, UTIs, anemia, and labial abscess who presented to the [facility] emergency department due to increasing pain, redness, and swelling of her left
lower extremity. On presentation, the patient was afebrile with stable vital signs. Lab work on presentation was unremarkable with no leukocytosis, and blood and wound cultures are pending. Additionally, left lower extremity ultrasound revealed
no DVT. The patient was admitted for further treatment for left lower extremity cellulitis.
#Cellulitis of left lower extremity
On presentation, physical exam revealed markedly erythematous, edematous, warm, and TTP LLE spanning a large area from just below the left knee into the patient's left foot
Motor and sensation are intact in LLE, with palpable DP pulse and capillary refill indicating good perfusion
Cellulitis improving clinically, with less edema and erythema than on presentation; pain much improved since yesterday, now just discomfort not requiring pain medication since last night
Started cefazolin (03/01), discontinued vancomycin and piperacillin�tazobactam after initial administration in the ED
Per ID, vancomycin started yesterday (03/02) due to prior MRSA history, cefazolin discontinued
- Per ID, upon discharge, plan to transition to doxycycline 100 mg p.o. twice daily and amoxicillin 500 mg p.o. every 8 hours through 03/11/2025
Blood culture: NGTD
Wound culture: Pseudomonas aeruginosa, Staph aureus, GBS. Per ID, polymicrobial organisms may be a skin contaminant, not source of infection.
MRSA screen: Positive
Trend temperature curve, CBC - currently afebrile, no leukocytosis
Pain control with acetaminophen, tramadol as needed
Infectious disease, wound care following
#Anemia
Hemoglobin 11.5 today, stable from 11.4 yesterday and 12.0 on presentation
Etiology suspected dilutional
Monitor H&H, clinical status
Transfuse for hemoglobin <7
#Hypertension
Continue home HCTZ, lisinopril
#Hyperlipidemia
Continue home rosuvastatin
#History of CVA
Continue home aspirin, clopidogrel
DVT PPx: Lovenox
CODE STATUS: Full
Anticipated Discharge: Within 24 hours
Subjective/Interval History
-
Date of Service: March 03, 2025
Patient seen at the bedside on hospital day #3. Nursing reports NAEO. Patient reports no current complaints. She reports her LLE pain improved from 10/10 yesterday morning to mere discomfort today. She has not required any tramadol, or even
acetaminophen, since last night.
Objective Data
-
Labs:
Laboratory Results
03/03/25
06:00
WBC Pending
Hgb Pending
Hct Pending
Plt Count Pending
Sodium Pending
Potassium Pending
Chloride Pending
Carbon Dioxide Pending
BUN Pending
Creatinine Pending
Glucose Pending
Calcium Pending
Vital Signs:
Vital Signs
Temp Pulse Resp BP Pulse Ox
98.1 F 70 22 105/48 92
03/02/25 23:24 03/02/25 23:24 03/02/25 23:24 03/02/25 23:24 03/02/25 23:24
I&O
03/02/25 03/03/25 03/04/25
06:59 06:59 06:59
Intake Total 995 / 995
Balance 995 / 995
Review of Systems
-
History Source: Patient
Constitutional: Denies Fever, Fatigue, Chills or Weakness
EENT: Reports No Symptoms Reported
Respiratory: Denies Cough, Trouble Breathing or Wheezing
Cardiac: Denies Chest Pain, Palpitations or Syncope
Abdomen/GI: Denies Abdominal Pain, Nausea, Vomiting or Diarrhea
Musculoskeletal: Reports Edema
Skin: Reports Sores (Endorses sores on the lower extremity secondary to chronic swelling)
Neuro: Denies Dizzy, Headache, Weakness, Numbness or Lightheadedness
Physical Exam
-
General: Well Developed, Well Nourished, No Apparent Distress, Comfortable and Conversant; Negative Pain, Fever, Chills or Sweats
HEENT: Normocephalic and Atraumatic
Respiratory: Clear to Auscultation and Non Labored Respirations; Negative Wheezes or Crackles
Cardiac: Regular Rhythm, S1/S2 and Other (DP pulses palpable in bilateral lower extremities); Negative Murmur, Rub, Gallop, Tachycardic or Bradycardic
GI: Soft, Nontender, Nondistended and Normal Bowel Sounds
Musculoskeletal: No Cyanosis and Edema, Left Lower Extrem (Improving erythema, edema, with a much smaller area now affected and no longer tender to palpation or excessively warm); Negative Edema, Right Lower Extrem
Skin: Warm, Dry and Other (Sores present on left lower extremity)
Neuro: Awake, AO x 3, No Motor Deficits and No Sensory Deficits
Psych: Calm
[2025-03-03] MEDS: ZESTRIL 40 MG PO (08:39)
[2025-03-03] MEDS: PLAVIX 75 MG PO (08:40)
[2025-03-03] MEDS: HYDROPHOR 1 APPLIC TOPICAL (08:40)
[2025-03-03] MEDS: ASPIR LOW (ENTERIC COATED) 81 MG PO (08:40)
[2025-03-03] MEDS: ORETIC 12.5 MG PO (08:40)
[2025-03-03] MEDS: DESENEX/MITRAZOL/ZEASORB 1 APPLIC TOPICAL ×2 (08:41→19:58)
[2025-03-03 08:53] LABS: Hematocrit 35.3 % (37.0-47.0); Hemoglobin 11.5 g/dL (12.0-16.0); Mean Corp Hgb Conc. 32.6 g/dL (33.0-37.0); Mean Corpuscular Volume 89.4 fL (81.0-99.0); Nucleated Red Blood Cells % 0 %; Platelet Count 295 10^3/uL (130-400); Red Cell Dist. Width 13.6 % (11.5-14.5)
[2025-03-03 09:25] LABS: Blood Urea Nitrogen 29 mg/dl (7-17); Calcium 9.2 mg/dl (8.4-10.2); Carbon Dioxide 26 mmol/L (22-30); Chloride 107 mmol/L (98-107); Estimated Creatinine Clearance 56 ml/min; Glucose 93 mg/dl (70-99); Potassium 4.6 mmol/L (3.5-5.1); Sodium 137 mmol/L (135-145); eGFR > 60.00
--- NOTE | 2025-03-03 10:41 | W.PN.ID1 ---
Date of Service
Date of Service: March 03, 2025
Today's Communication
Continue Vancomycin
Assessment / Plan
# LLE cellulitis, improving
# LLE venous stasis dermatitis
# Noncompliance with compression
# hx MRSA colonization
- Discussed with patient the importance of leg compression, elevation, moisturize skin.
- Surface wound swab: polymicrobial organisms can be skin contaminants and not reflect pathogens source of cellulitis.
- Continue gram-positive coverage (including MRSA and GBS) with Vancomycin (d2)
- At time of discharge, transition to doxycycline 100mg po bid (MRSA) and amoxicillin 500mg po q8 (GBS) through 03/11.
# Additional Past Medical History:
Hx CVA
HTN
Dyslipidemia
Venous stasis
Additional Past Surgical History:
Hysterectomy
Bilateral hip replacement
Chief Complaint
-: Cellulitis
Subjective / Review of Systems
no complaints.
Vital Signs / Physical Exam
Vital Signs
Vital Signs
Temp Pulse Resp BP Pulse Ox
97.9 F 59 20 140/46 97
03/03/25 07:05 03/03/25 07:05 03/03/25 07:05 03/03/25 07:05 03/03/25 07:05
Physical Exam
Constitutional: No Acute Distress and Comfortable
Cardiovascular: Regular Rate and S1/S2
Pulmonary: Clear
Gastrointestinal: Soft, Non Tender and Non Distended
Extremities: Edema (LLE improved), Erythema (LLE improved) and Venous Insufficiency
Skin: Dry
Neurological: AO x 3
Objective Data
Lab Data
Lab Results
03/03/25 08:11
03/03/25 08:11
Estimated Creat Clear 56 ml/min 03/03/25 08:11
Total Bilirubin 0.4 mg/dl (0.2-1.3) 03/01/25 16:44
AST 21 U/L (14-36) 03/01/25 16:44
ALT 15 U/L (0-35) 03/01/25 16:44
Alkaline Phosphatase 61 U/L (38-126) 03/01/25 16:44
Most recent labs reviewed.
Micro Results:
03/01/25 12:30 Wound Culture - Preliminary
Leg - Left Pseudomonas aeruginosa
Staphylococcus aureus
Streptococcus agalactiae
Gram Stain - Preliminary
03/01/25 19:39 MRSA Screen - Final
Nose Staph aureus MRSA
03/01/25 15:01 Blood Culture - Preliminary
Blood/Venous No Growth in 24 hours- Final report to follow
03/01/25 12:31 Blood Culture - Preliminary
Blood/Venous No Growth in 24 hours- Final report to follow
03/01/25 Peripheral vascular US: No sonographic evidence for LEFT lower extremity deep venous thrombosis, noting nonvisualization of the calf veins.
Care Review
Plan reviewed with: Physician (Drs. Martinez, Keely)
--- NOTE | 2025-03-03 11:46 | PHA.VAN.FU ---
Vancomycin Assessment / Plan
- Assessment
Renal Function: SCR Decreasing (BUN decreasing)
WBC's are: WNL
In the past 24 hrs, patient has been: Afebrile
- Dosing Plan
Adjust Regimen to: Vanc 1500mg Q24H starting 03/04 06 for improved renal function
New Regimen Predicts: AUC (477), Peak (33.1), Trough (10.5)
- Monitoring Plan
No level(s) ordered at this time: consider levels in next few days
- Follow Up
Pharmacy will continue to follow.
Vancomycin Follow UP
- -
Patient Age: 84
Patient Sex: Female
Vancomycin Day #: 2
Indication: Skin And Soft Tissue
Requesting Provider: Dr. Pena
Pertinent Antimicrobial Allergies:
NKDA
Height / Weight:
Height 5 ft 5 in
Actual Weight 91.654 kg
Pertinent Past Medical History: BMI ~34
- Vital Signs / Lab Results
Temp Pulse Resp BP Pulse Ox
97.9 F 59 20 140/46 97
03/03/25 07:05 03/03/25 07:05 03/03/25 07:05 03/03/25 07:05 03/03/25 08:00
Lab Results - Hematology
03/01/25 03/02/25 03/03/25
12:30 07:25 08:11
WBC 10.4 7.0 7.5
Lab Results - Chemistry
03/01/25 03/01/25 03/02/25
12:31 16:44 07:25
BUN Cancelled 46 H 33 H
Creatinine Cancelled 1.0 1.0
Estimated Creat Clear Cancelled 45 45
Albumin Cancelled 3.3 L
03/03/25
08:11
BUN 29 H
Creatinine 0.8
Estimated Creat Clear 56
Albumin
Microbiology Results
03/01/25 12:30 Wound Culture - Preliminary
Leg - Left Pseudomonas aeruginosa
Staphylococcus aureus
Streptococcus agalactiae
Gram Stain - Preliminary
03/01/25 19:39 MRSA Screen - Final
Nose Staph aureus MRSA
03/01/25 15:01 Blood Culture - Preliminary
Blood/Venous No Growth in 24 hours- Final report to follow
03/01/25 12:31 Blood Culture - Preliminary
Blood/Venous No Growth in 24 hours- Final report to follow
[2025-03-03 15:00] VITALS: BP 109/39
[2025-03-03 15:08] VITALS: BP 109/39; PULSE 48; PULSE 60; O2SAT 95
[2025-03-03 15:11] VITALS: BP 109/39; PULSE 48; PULSE 60; O2SAT 95
--- NOTE | 2025-03-03 15:41 | CM ---
CM reviewed chart, patient seen beside, discussed plan for discharge. Patient would like to return home to [facility] with Jeremy BERMAN. Therapy recommending SNF- call to [facility], left with nurse to discuss patient status and ability to accept
back. CM will continue to follow for all discharge planning needs.
Plan; Return to [facility] with Jeremy BERMAN, therapy recommending SNF, call to [facility] to see if able to accept pt back
[2025-03-03] MEDS: LOVENOX 40 MG SC (17:44)
[2025-03-03] MEDS: CRESTOR 5 MG PO (19:56)
[2025-03-03] MEDS: TYLENOL 650 MG PO (21:45)
[2025-03-03 23:09] VITALS: BP 135/44
[2025-03-04] MEDS: VANCOCIN 530 MG IV (04:59)
[2025-03-04 07:38] VITALS: BP 170/66
[2025-03-04] MEDS: ZESTRIL 40 MG PO (08:01)
[2025-03-04] MEDS: PLAVIX 75 MG PO (08:01)
[2025-03-04] MEDS: ORETIC 12.5 MG PO (08:01)
[2025-03-04] MEDS: ASPIR LOW (ENTERIC COATED) 81 MG PO (08:01)
[2025-03-04] MEDS: HYDROPHOR 1 APPLIC TOPICAL (08:02)
[2025-03-04] MEDS: DESENEX/MITRAZOL/ZEASORB 1 APPLIC TOPICAL ×2 (08:04→19:26)
[2025-03-04 08:50] LABS: Hematocrit 35.4 % (37.0-47.0); Hemoglobin 11.8 g/dL (12.0-16.0); Mean Corp Hgb Conc. 33.3 g/dL (33.0-37.0); Mean Corpuscular Volume 88.9 fL (81.0-99.0); Nucleated Red Blood Cells % 0 %; Platelet Count 290 10^3/uL (130-400); Red Cell Dist. Width 13.5 % (11.5-14.5)
[2025-03-04 09:34] LABS: Blood Urea Nitrogen 28 mg/dl (7-17); Calcium 9.2 mg/dl (8.4-10.2); Carbon Dioxide 25 mmol/L (22-30); Chloride 111 mmol/L (98-107); Estimated Creatinine Clearance 56 ml/min; Glucose 99 mg/dl (70-99); Potassium 4.5 mmol/L (3.5-5.1); Sodium 139 mmol/L (135-145); eGFR > 60.00
[2025-03-04 11:24] VITALS: BP 150/52
--- NOTE | 2025-03-04 11:31 | PHA.VAN.FU ---
Vancomycin Assessment / Plan
- Assessment
Renal Function: Stable
WBC's are: WNL
In the past 24 hrs, patient has been: Afebrile
- Dosing Plan
Continue: Vanc 1500mg Q24H
- Monitoring Plan
No level(s) ordered at this time: consider levels in next few days
- Follow Up
Pharmacy will continue to follow.
Vancomycin Follow UP
- -
Patient Age: 84
Patient Sex: Female
Vancomycin Day #: 3
Indication: Skin And Soft Tissue
Requesting Provider: Dr. Pena
Pertinent Antimicrobial Allergies:
NKDA
Height / Weight:
Height 5 ft 5 in
Actual Weight 91.654 kg
Pertinent Past Medical History: BMI ~34
- Vital Signs / Lab Results
Temp Pulse Resp BP Pulse Ox
98.3 F 60 18 150/52 96
03/04/25 07:38 03/04/25 11:24 03/04/25 07:38 03/04/25 11:24 03/04/25 07:38
Lab Results - Hematology
03/01/25 03/02/25 03/03/25
12:30 07:25 08:11
WBC 10.4 7.0 7.5
03/04/25
08:04
WBC 5.5
Lab Results - Chemistry
03/01/25 03/01/25 03/02/25
12:31 16:44 07:25
BUN Cancelled 46 H 33 H
Creatinine Cancelled 1.0 1.0
Estimated Creat Clear Cancelled 45 45
Albumin Cancelled 3.3 L
03/03/25 03/04/25
08:11 08:04
BUN 29 H 28 H
Creatinine 0.8 0.8
Estimated Creat Clear 56 56
Albumin
Microbiology Results
03/01/25 12:30 Wound Culture - Preliminary
Leg - Left Pseudomonas aeruginosa
Staph aureus MRSA
Streptococcus agalactiae
Gram Stain - Preliminary
03/01/25 15:01 Blood Culture - Preliminary
Blood/Venous No Growth in 48 hours- Final report to follow
03/01/25 12:31 Blood Culture - Preliminary
Blood/Venous No Growth in 48 hours- Final report to follow
03/01/25 19:39 MRSA Screen - Final
Nose Staph aureus MRSA
--- NOTE | 2025-03-04 12:14 | CM ---
Addendum entered by Sheeba Hopkins 03/04/25 16:47:
Plan; Patient to return to [facility] tomorrow, returned case inspector spoke with nursing at [facility], patient has been set up with [facility] visiting nurses and private caregiver by patient's son, Chester. Referral sent to [facility]. Friend Taj to transport pain
to [facility].
[facility]
Report [facility] [phone]

Addendum entered by Sheeba Hopkins 03/04/25 15:19:
Referral was sent to [facility]
[place]
[phone]

Addendum entered by Sheeba Hopkins 03/04/25 15:09:
bookstore manager met with patient and sent referrals to [facility] and [facility], returned case inspector spoke with admissions at [facility]. [facility] and [facility] have denied patient as they are out of network with patient's insurance.
bookstore manager received a call from patient's son, Chester and he wanted to know who recommended skilled, returned case inspector explained that physical therapy recommend skilled placement per patient's son he would like an update on patient progress with physical
therapy as he would prefer that patient return to [facility] with [facility] visiting nurses than go to a skilled facility.
Original Note:
Chart reviewed and physical therapy are recommending skilled placement would like to return to [facility] however physical therapy are recommending skilled placement, returned case inspector reviewed skilled options and provided list of Medicare.gov options
and patient is agreeable to [facility], patient has been denied at [facility] as they are out of network with patient's insurance.
Plan; Waiting on other skilled options from patient.
--- NOTE | 2025-03-04 13:04 | W.PN.HOSP.TC ---
Addendum entered and electronically signed by Branden Martinez MD 03/04/25 14:13:
Seen and examined by me independently in collaboration with the lead medical technologist.
Lab data reviewed.
Addendum as below :
Improving left leg cellulitis. Currently on IV vancomycin. Transition to doxycycline and amoxicillin as per ID on discharge
PT report noted-recommends rehab.
Medically stable for discharge to rehab. Discussed with the case management.
Original Note:
Today's Communication/Plan
-
Continue vancomycin for treatment of LLE cellulitis
Plan to transition to oral antibiotic regimen of doxycycline and amoxicillin upon discharge
Plan for discharge to home later today
Assessment / Plan
Assessment / Plan
Patient is a 63-year-old female with past medical history of CVA, hypertension, hyperlipidemia, UTIs, anemia, and labial abscess who presented to the [facility] emergency department due to increasing pain, redness, and swelling of her left
lower extremity. On presentation, the patient was afebrile with stable vital signs. Lab work on presentation was unremarkable with no leukocytosis, and blood and wound cultures are pending. Additionally, left lower extremity ultrasound revealed
no DVT. The patient was admitted for further treatment for left lower extremity cellulitis.
#Cellulitis of left lower extremity
On presentation, physical exam revealed markedly erythematous, edematous, warm, and TTP LLE spanning a large area from just below the left knee into the patient's left foot
Motor and sensation are intact in LLE, with palpable DP pulse and capillary refill indicating good perfusion
Cellulitis improving clinically, with less edema and erythema than on presentation; pain much improved since yesterday, now just discomfort not requiring pain medication since last night
Started cefazolin (03/01), discontinued vancomycin and piperacillin�tazobactam after initial administration in the ED
Per ID, continue vancomycin due to prior MRSA history, cefazolin discontinued
- Per ID, upon discharge, plan to transition to doxycycline 100 mg p.o. twice daily and amoxicillin 500 mg p.o. every 8 hours through 03/11/2025
Blood culture: NGTD
Wound culture: Pseudomonas aeruginosa, Staph aureus, GBS. Per ID, polymicrobial organisms may be a skin contaminant, not source of infection.
MRSA screen: Positive
Trend temperature curve, CBC - currently afebrile, no leukocytosis
Pain control with acetaminophen, tramadol as needed
Infectious disease, wound care following
#Anemia
Hemoglobin 11.8 today, stable from 11.5 yesterday and 12.0 on presentation
Etiology suspected dilutional
Monitor H&H, clinical status
Transfuse for hemoglobin <7
#Hypertension
Continue home HCTZ, lisinopril
#Hyperlipidemia
Continue home rosuvastatin
#History of CVA
Continue home aspirin, clopidogrel
DVT PPx: Lovenox
CODE STATUS: Full
Anticipated Discharge: Today
Subjective/Interval History
-
Date of Service: March 04, 2025
Patient seen at the bedside on hospital day #4. Nursing reports NAEO. Patient states her leg is 'better.' Pain no longer present, improved substantially from 2 days prior. No current complaints.
Objective Data
-
Labs:
Laboratory Results
03/04/25
08:04
WBC 5.5
Hgb 11.8 L
Hct 35.4 L
Plt Count 290
Sodium 139
Potassium 4.5
Chloride 111 H
Carbon Dioxide 25
BUN 28 H
Creatinine 0.8
Glucose 99
Calcium 9.2
Vital Signs:
Vital Signs
Temp Pulse Resp BP Pulse Ox
98.3 F 60 18 150/52 96
03/04/25 07:38 03/04/25 11:24 03/04/25 07:38 03/04/25 11:24 03/04/25 07:38
I&O
03/03/25 03/04/25 03/05/25
06:59 06:59 06:59
Intake Total 995 / 995 540 / 540
Balance 995 / 995 540 / 540
Review of Systems
-
History Source: Patient
Constitutional: Denies Fever, Fatigue or Chills
EENT: Reports No Symptoms Reported
Respiratory: Denies Cough, Trouble Breathing or Wheezing
Cardiac: Denies Chest Pain, Palpitations or Syncope
Abdomen/GI: Denies Abdominal Pain, Nausea, Vomiting or Diarrhea
Genitourinary: Reports Incontinence (Chronic, unchanged)
Musculoskeletal: Denies Edema
Skin: Reports Other (Denies pain in left lower extremity; improving swelling)
Neuro: Denies Dizzy, Headache, Weakness, Numbness or Lightheadedness
Physical Exam
-
General: Well Developed, Well Nourished, No Apparent Distress, Comfortable and Conversant
HEENT: Normocephalic and Atraumatic
Respiratory: Clear to Auscultation and Non Labored Respirations; Negative Wheezes or Crackles
Cardiac: Regular Rhythm and S1/S2; Negative Murmur, Rub or Gallop
GI: Soft, Nontender and Normal Bowel Sounds
Musculoskeletal: No Cyanosis
Skin: Warm, Dry and Other (LLE edema, erythema, warmth vastly improved from prior days; nontender to palpation)
Neuro: Awake, AO x 3, No Motor Deficits and No Sensory Deficits
Psych: Calm
--- NOTE | 2025-03-04 13:21 | W.PN.ID1 ---
Date of Service
Date of Service: March 04, 2025
Today's Communication
- Continue gram-positive coverage (including MRSA and GBS) with Vancomycin (d3)
- At time of discharge, transition to doxycycline 100mg po bid (MRSA) and amoxicillin 500mg po q8 (GBS) through 03/11.
Assessment / Plan
# LLE cellulitis, improving
# LLE venous stasis dermatitis
# Noncompliance with compression
# hx MRSA colonization
- Patient understands the importance of leg compression, elevation, moisturize skin.
- Surface wound swab: polymicrobial organisms can be skin contaminants and not reflect pathogens source of cellulitis.
- Continue gram-positive coverage (including MRSA and GBS) with Vancomycin (d3)
- At time of discharge, transition to doxycycline 100mg po bid (MRSA) and amoxicillin 500mg po q8 (GBS) through 03/11.
- Awaiting SNF rehab placement.
# Additional Past Medical History:
Hx CVA
HTN
Dyslipidemia
Venous stasis
Additional Past Surgical History:
Hysterectomy
Bilateral hip replacement
Chief Complaint
-: Cellulitis
Subjective / Review of Systems
Leg continues to improve.
Vital Signs / Physical Exam
Vital Signs
Vital Signs
Temp Pulse Resp BP Pulse Ox
98.3 F 60 18 150/52 96
03/04/25 07:38 03/04/25 11:24 03/04/25 07:38 03/04/25 11:24 03/04/25 07:38
Physical Exam
Constitutional: No Acute Distress and Comfortable
Cardiovascular: Regular Rate and S1/S2
Pulmonary: Clear
Gastrointestinal: Soft, Non Tender and Non Distended
Extremities: Edema (LLE decreased.) and Erythema (LLE milder)
Neurological: AO x 3
Objective Data
Lab Data
Lab Results
03/04/25 08:04
03/04/25 08:04
Estimated Creat Clear 56 ml/min 03/04/25 08:04
Total Bilirubin 0.4 mg/dl (0.2-1.3) 03/01/25 16:44
AST 21 U/L (14-36) 03/01/25 16:44
ALT 15 U/L (0-35) 03/01/25 16:44
Alkaline Phosphatase 61 U/L (38-126) 03/01/25 16:44
Most recent labs reviewed.
Micro Results:
03/01/25 12:31 Blood Culture - Preliminary
Blood/Venous No Growth in 72 hours- Final report to follow
03/01/25 12:30 Wound Culture - Preliminary
Leg - Left Pseudomonas aeruginosa
Staph aureus MRSA
Streptococcus agalactiae
Gram Stain - Preliminary
03/01/25 15:01 Blood Culture - Preliminary
Blood/Venous No Growth in 48 hours- Final report to follow
03/01/25 19:39 MRSA Screen - Final
Nose Staph aureus MRSA
03/01/25 Peripheral vascular US: No sonographic evidence for LEFT lower extremity deep venous thrombosis, noting nonvisualization of the calf veins.
[2025-03-04 15:01] VITALS: BP 127/51
[2025-03-04] MEDS: LOVENOX 40 MG SC (18:14)
[2025-03-04] MEDS: CRESTOR 5 MG PO (19:27)
[2025-03-04] MEDS: TYLENOL 650 MG PO (22:14)
[2025-03-04 23:13] VITALS: BP 161/64
[2025-03-05] MEDS: VANCOCIN 530 MG IV (05:25)
[2025-03-05 07:00] VITALS: BP 150/53
[2025-03-05 08:18] LABS: Hematocrit 33.7 % (37.0-47.0); Hemoglobin 11.1 g/dL (12.0-16.0); Mean Corp Hgb Conc. 32.9 g/dL (33.0-37.0); Mean Corpuscular Volume 89.2 fL (81.0-99.0); Platelet Count 310 10^3/uL (130-400); Red Cell Dist. Width 13.5 % (11.5-14.5)
[2025-03-05 08:24] LABS: Blood Urea Nitrogen 24 mg/dl (7-17); Calcium 9.1 mg/dl (8.4-10.2); Carbon Dioxide 27 mmol/L (22-30); Chloride 110 mmol/L (98-107); Estimated Creatinine Clearance 65 ml/min; Glucose 96 mg/dl (70-99); Potassium 4.3 mmol/L (3.5-5.1); Sodium 142 mmol/L (135-145); eGFR > 60.00
[2025-03-05] MEDS: ZESTRIL 40 MG PO (08:47)
[2025-03-05] MEDS: ORETIC 12.5 MG PO (08:47)
[2025-03-05] MEDS: ASPIR LOW (ENTERIC COATED) 81 MG PO (08:47)
[2025-03-05] MEDS: PLAVIX 75 MG PO (08:47)
[2025-03-05] MEDS: DESENEX/MITRAZOL/ZEASORB 1 APPLIC TOPICAL (09:05)
[2025-03-05] MEDS: HYDROPHOR 1 APPLIC TOPICAL (09:06)
--- NOTE | 2025-03-05 09:21 | W.PN.HOSP.TC ---
Addendum entered and electronically signed by Branden Martinez MD 03/05/25 15:27:
Seen and examined by me independently in collaboration with the biomedical engineering supervisor.
Lab data reviewed.
Addendum as below :
Improved left leg cellulitis. No fevers or sepsis with parameters. Tolerating diet. No shortness of breath or chest pain. No dizziness. Did well with PT yesterday and home health recommended.
Will DC home with [facility] nurses and home PT on oral antibiotics as recommended by ID till March 11.
Total time of discharge 32 minutes
Original Note:
Today's Communication/Plan
-
Continue vancomycin for treatment of LLE cellulitis
Plan to transition to oral antibiotic regimen of doxycycline and amoxicillin upon discharge
Plan for discharge back to [facility] with [facility] VN and private caregiver later today
Assessment / Plan
Assessment / Plan
Patient is a 63-year-old female with past medical history of CVA, hypertension, hyperlipidemia, UTIs, anemia, and labial abscess who presented to the [facility] emergency department due to increasing pain, redness, and swelling of her left
lower extremity. On presentation, the patient was afebrile with stable vital signs. Lab work on presentation was unremarkable with no leukocytosis, and blood and wound cultures are pending. Additionally, left lower extremity ultrasound revealed
no DVT. The patient was admitted for further treatment for left lower extremity cellulitis.
#Cellulitis of left lower extremity
On presentation, physical exam revealed markedly erythematous, edematous, warm, and TTP LLE spanning a large area from just below the left knee into the patient's left foot
Motor and sensation are intact in LLE, with DP pulse 2+ and capillary refill indicating good perfusion
Cellulitis markedly improving clinically, with significantly less edema, erythema, and excessive warmth; no pain in LLE for over 36 hours
Started cefazolin (03/01), discontinued vancomycin and piperacillin�tazobactam after initial administration in the ED
Per ID, continue vancomycin due to prior MRSA history, cefazolin discontinued
- Per ID, upon discharge, plan to transition to doxycycline 100 mg p.o. twice daily and amoxicillin 500 mg p.o. every 8 hours through 03/11/2025
Blood culture: NGTD
Wound culture: Pseudomonas aeruginosa, Staph aureus, GBS. Per ID, polymicrobial organisms may be a skin contaminant, not source of infection.
MRSA screen: Positive
Trend temperature curve, CBC - currently afebrile, no leukocytosis
Pain control with acetaminophen, tramadol as needed
Infectious disease, wound care following
#Anemia
Hemoglobin 11.1 today, relatively stable from 11.8 yesterday and 12.0 on presentation
Etiology suspected dilutional
Monitor H&H, clinical status
Transfuse for hemoglobin <7
#Hypertension
Continue home HCTZ, lisinopril
#Hyperlipidemia
Continue home rosuvastatin
#History of CVA
Continue home aspirin, clopidogrel
DVT PPx: Lovenox
CODE STATUS: Full
Disposition: [facility] with Jeremy BERMAN
Anticipated Discharge: Today
Subjective/Interval History
-
Date of Service: March 05, 2025
Patient is seen at the bedside of hospital bed 5. Nursing reports anemia. No current complaints, including no pain in left lower extremity. Patient states, 'leg feels good.' Amenable to discharge later today back to [facility] with Jeremy
visiting nurse and private caregiver.
Objective Data
-
Labs:
Laboratory Results
03/05/25
07:27
WBC 5.8
Hgb 11.1 L
Hct 33.7 L
Plt Count 310
Sodium 142
Potassium 4.3
Chloride 110 H
Carbon Dioxide 27
BUN 24 H
Creatinine 0.7
Glucose 96
Calcium 9.1
Vital Signs:
Vital Signs
Temp Pulse Resp BP Pulse Ox
97.8 F 64 18 150/53 94
03/05/25 07:00 03/05/25 08:47 03/05/25 07:00 03/05/25 08:47 03/05/25 07:00
I&O
03/04/25 03/05/25 03/06/25
06:59 06:59 06:59
Intake Total 540 / 540
Balance 540 / 540
Review of Systems
-
History Source: Patient and Family (Family friend 'Joselyn' on the phone while at the bedside)
Constitutional: Denies Fever, Fatigue, Chills or Weakness
EENT: Reports No Symptoms Reported
Respiratory: Denies Cough, Trouble Breathing or Wheezing
Cardiac: Denies Chest Pain, Palpitations or Syncope
Abdomen/GI: Denies Abdominal Pain, Nausea, Vomiting or Diarrhea
Genitourinary: Reports Incontinence (Chronic, unchanged); Denies Dysuria
Musculoskeletal: Reports Edema (Edema LLE, much better than recent days)
Skin: Reports Other (Reports chronic difficulty with LLE swelling and skin breakdown due to poor drainage and difficulty elevating, compressing)
Neuro: Denies Dizzy, Headache, Weakness, Numbness or Lightheadedness
Physical Exam
-
General: No Apparent Distress, Comfortable and Conversant; Negative Pain, Fever, Chills or Sweats
HEENT: Normocephalic and Atraumatic
Respiratory: Clear to Auscultation, Wheezes (Mild, the patient reports no complaint) and Non Labored Respirations; Negative Crackles
Cardiac: Regular Rhythm, S1/S2 and Other (DP pulse 2+ in LLE); Negative Murmur, Rub, Gallop, Tachycardic or Bradycardic
GI: Soft, Nontender, Nondistended and Normal Bowel Sounds
Musculoskeletal: No Cyanosis and Edema, Left Lower Extrem (Trace, nonpitting, markedly improved from recent days with antibiotic treatment)
Skin: Warm, Dry and Other (Markedly reduced edema, erythema, excessive warmth; no pain, including with palpation; areas of minor skin breakdown (cracks) in LLE at site of resolving cellulitis)
Neuro: Awake and AO x 3
Psych: Calm
--- NOTE | 2025-03-05 09:41 | PHA.VAN.FU ---
Vancomycin Assessment / Plan
- Assessment
Renal Function: Stable
WBC's are: WNL
In the past 24 hrs, patient has been: Afebrile
- Dosing Plan
Continue: Vancomycin 1500mg IV Q24h
- Monitoring Plan
No level(s) ordered at this time: consider levels in next few days.
- Follow Up
Pharmacy will continue to follow.
Vancomycin Follow UP
- -
Patient Age: 84
Patient Sex: Female
Vancomycin Day #: 4
Indication: Skin And Soft Tissue
Requesting Provider: Dr. Pena
Pertinent Antimicrobial Allergies:
NKDA
Height / Weight:
Height 5 ft 5 in
Actual Weight 91.654 kg
Pertinent Past Medical History: BMI ~34
- Vital Signs / Lab Results
Temp Pulse Resp BP Pulse Ox
97.8 F 64 18 150/53 94
03/05/25 07:00 03/05/25 08:47 03/05/25 07:00 03/05/25 08:47 03/05/25 07:00
Lab Results - Hematology
03/03/25 03/04/25 03/05/25
08:11 08:04 07:27
WBC 7.5 5.5 5.8
Lab Results - Chemistry
03/03/25 03/04/25 03/05/25
08:11 08:04 07:27
BUN 29 H 28 H 24 H
Creatinine 0.8 0.8 0.7
Estimated Creat Clear 56 56 65
Microbiology Results
03/01/25 15:01 Blood Culture - Preliminary
Blood/Venous No Growth in 72 hours- Final report to follow
03/01/25 12:31 Blood Culture - Preliminary
Blood/Venous No Growth in 72 hours- Final report to follow
03/01/25 12:30 Wound Culture - Preliminary
Leg - Left Pseudomonas aeruginosa
Staph aureus MRSA
Streptococcus agalactiae
Gram Stain - Preliminary
03/01/25 19:39 MRSA Screen - Final
Nose Staph aureus MRSA
[2025-03-05 13:00] VITALS: BP 142/62
--- NOTE | 2025-03-05 15:20 | W.DCSUMMARY ---
Discharge Summary
Discharge Data
Date of Admission: 03/01/25
Date of Discharge: 03/05/25
-
Pending Results: No
Hospital Course
Discharging Physician : Isaiah Riggs MD; Branden Martinez MD
Disposition : [facility]/ [facility] and private caregiver
Primary care physician : Corrina Schroeder DO
Principal Discharge diagnosis : Cellulitis of left lower extremity; anemia
Chronic Discharge diagnosis : Hypertension; hyperlipidemia; history of CVA
Hospital Course :
Ms. Emmanuel is an 84-year-old female with past medical history of hypertension, hyperlipidemia, CVA, UTIs, anemia, and labial abscess who presented to the [facility] emergency department due to increasing pain, redness, and swelling of her
left lower extremity. On presentation, the patient was afebrile with stable vital signs. Lab work on presentation was unremarkable with no leukocytosis. Additionally, left lower extremity ultrasound revealed no DVT. The patient was admitted for
further treatment of left lower extremity cellulitis. The patient was initially administered vancomycin and piperacillin-tazobactam in the emergency department. These medications were subsequently discontinued with the initiation of cefazolin.
The patient showed clinical improvement over subsequent days, with marked reduction of edema, erythema, pain, and warmth of the left lower extremity. Blood cultures showed no growth throughout the hospital course. Wound cultures showed
polymicrobial growth with Pseudomonas aeruginosa, Staph aureus, group B strep, and diphtheria. Per infectious disease, these polymicrobial organisms were likely a skin contaminant, not necessarily a source of infection. The patient's MRSA screen
was positive, which was consistent with the patient's history of MRSA colonization. Accordingly, the patient was restarted on vancomycin, and cefazolin was discontinued. The patient remained afebrile with no leukocytosis during the hospital
course. The patient remained neurovascularly intact in her left lower extremity throughout the hospital course. Patient's pain was effectively treated with acetaminophen and tramadol as needed, with declining requirements for pain medication as
her clinical status improved with treatment. The patient received wound care with regular compression dressings and elevation. The patient's hemoglobin was 12.0 on presentation and declined to a low of 11.1. There were no signs of active
bleeding, and the patient remained without any symptoms of anemia. The patient's anemia is suspected to be dilutional in etiology, as she received IVF with antibiotic administration. Patient was counseled on the importance of leg compression,
elevation, and skin moisturization in the prevention of skin breakdown and subsequent infection. With significant improvement of her left lower extremity cellulitis, stable vital signs, and no leukocytosis, the patient was medically cleared for
discharge back to [facility] living with plans for [facility] nursing, as well as a private caregiver arranged by her son. Patient will transition to oral antibiotics upon discharge, as follows: Doxycycline 100 mg by mouth twice
daily and amoxicillin 500 mg by mouth every 8 hours through 03/11/2025.
Unless otherwise stated above, the patient's chronic medical conditions showed no progression during the hospital course.
Important imaging findings :
Venous ultrasound�left lower extremity (03/01/2025)� IMPRESSION: No sonographic evidence for LEFT lower extremity deep venous thrombosis, noting nonvisualization of the calf veins.
Procedure findings : N/A
Discharge Plan
-
Patient Disposition: Assisted Living
Discharge Diagnosis/Procedures: Cellulitis of left lower extremity
Condition: Good
Diet: As tolerated
Activity: As tolerated
Driving Restrictions: As prior to admission
Bathing Restrictions: None
Wound Care: Follow-up with [facility] wound care chambers. Call for an appointment.
Activity Restrictions/Additional Instructions:
Follow-up with primary care physician (Corrina Schroeder DO) in 1 week
Follow-up with [facility] wound care chambers, as detailed below
Wound Care Instructions
L leg: Vashe soak on gauze for 5 minutes then apply adaptic, abd pad and jack daily and prn drainage.
Moisturized legs and feet with mineral oil daily.
Luis wraps knee high both legs daily can remove at hs
Heels: skin prep then Adhesive foams, change q 3 days and prn soilage. Sacrum: after cleaning apply sacral silicone foam to protect, change q 3 days and prn soilage.
Calazime to buttock skin folds daily and prn soilage.
Miconazole powder BID for thighs and perineum after bathing
Leg elevation when sitting
Follow up at wound care center; call for an appointment.
Referrals:
Corrina Schroeder, DO [Family Provider, General]
Additional Discharge Medication Instructions: Start doxycycline 100 mg by mouth twice daily through 03/11/2025.
Start amoxicillin 500 mg by mouth every 8 hours through 03/11/2025
Apply miconazole powder twice daily to thighs and perineum after bathing
Please be aware of the following additional instructions related to doxycycline:
1. Remain in an upright position for 30 minutes after you take this medication, as it can otherwise cause esophageal irritation. Taking this medication with liquids can also help in this regard.
2. Doxycycline can increase photosensitivity, or your skin's sensitivity to sunlight (and other forms of UV light). While it is always good to wear sunscreen and protective clothing while in direct sunlight, particularly at times when UV light is
strongest, additional care should be taken when you are on this medication.
3. Avoid dairy products for 1 to 2 hours after taking this medication, as calcium can interfere with its absorption.
Prescriptions:
New
doxycycline hyclate 100 mg capsule
100 mg PO BID Qty: 13 0RF
amoxicillin 500 mg capsule
500 mg PO Q8H Qty: 20 0RF
miconazole nitrate [Miconazorb AF] 2 % Powder
1 applic topical BID Qty: 85 0RF
Continued
cholecalciferol (vitamin D3) 1,000 UNITS tablet
2,000 units PO DAILY
rosuvastatin 5 MG tablet
5 mg PO HS
clopidogrel 75 MG tablet
75 mg PO DAILY Qty: 0 0RF
vitamin B complex Capsule
1 cap PO DAILY
aspirin 81 MG tablet,delayed release (DR/EC)
1 tab PO DAILY
acetaminophen 325 mg Tablet
650 mg PO Q6HPRN PRN (Reason: mild pain)
therapeutic multivitamin Tablet
1 tab PO DAILY
cranberry 450 mg Tablet
450 mg PO HS
turmeric 400 mg Capsule
400 mg PO DAILY
lisinopril 40 mg Tablet
40 mg PO DAILY
hydrochlorothiazide 12.5 mg Tablet
12.5 mg PO DAILY
Discharge Orders:
Discharge Patient (As Directed); Ordered 03/05/25
Ordered By: Isaiah Riggs
Discharge Date and Time
Discharge Date/Time: 03/05/25 13:51
Print Language: MARSHALLESE
--- NOTE | 2025-03-05 15:25 | W.PN.HOSP.TC ---
Today's Communication/Plan
-
dc
Assessment / Plan
Assessment / Plan
Patient is a 63-year-old female with past medical history of CVA, hypertension, hyperlipidemia, UTIs, anemia, and labial abscess who presented to the [facility] emergency department due to increasing pain, redness, and swelling of her left
lower extremity. On presentation, the patient was afebrile with stable vital signs. Lab work on presentation was unremarkable with no leukocytosis, and blood and wound cultures are pending. Additionally, left lower extremity ultrasound revealed
no DVT. The patient was admitted for further treatment for left lower extremity cellulitis.
#Cellulitis of left lower extremity
On presentation, physical exam revealed markedly erythematous, edematous, warm, and TTP LLE spanning a large area from just below the left knee into the patient's left foot
Motor and sensation are intact in LLE, with DP pulse 2+ and capillary refill indicating good perfusion
Cellulitis markedly improving clinically, with significantly less edema, erythema, and excessive warmth; no pain in LLE for over 36 hours
Started cefazolin (03/01), discontinued vancomycin and piperacillin�tazobactam after initial administration in the ED
Per ID, continue vancomycin due to prior MRSA history, cefazolin discontinued
- Per ID, upon discharge, plan to transition to doxycycline 100 mg p.o. twice daily and amoxicillin 500 mg p.o. every 8 hours through 03/11/2025
Blood culture: NGTD
Wound culture: Pseudomonas aeruginosa, Staph aureus, GBS. Per ID, polymicrobial organisms may be a skin contaminant, not source of infection.
MRSA screen: Positive
Trend temperature curve, CBC - currently afebrile, no leukocytosis
Pain control with acetaminophen, tramadol as needed
Infectious disease, wound care following
#Anemia
Hemoglobin 11.1 today, relatively stable from 11.8 yesterday and 12.0 on presentation
Etiology suspected dilutional
Monitor H&H, clinical status
Transfuse for hemoglobin <7
#Hypertension
Continue home HCTZ, lisinopril
#Hyperlipidemia
Continue home rosuvastatin
#History of CVA
Continue home aspirin, clopidogrel
DVT PPx: Lovenox
CODE STATUS: Full
Disposition: [facility]
Anticipated Discharge: Today (dc)
Subjective/Interval History
-
Date of Service: March 05, 2025
Objective Data
-
Labs:
Laboratory Results
03/05/25
07:27
WBC 5.8
Hgb 11.1 L
Hct 33.7 L
Plt Count 310
Sodium 142
Potassium 4.3
Chloride 110 H
Carbon Dioxide 27
BUN 24 H
Creatinine 0.7
Glucose 96
Calcium 9.1
Vital Signs:
Vital Signs
Temp Pulse Resp BP Pulse Ox
97.6 F 63 18 142/62 95
03/05/25 13:00 03/05/25 13:00 03/05/25 13:00 03/05/25 13:00 03/05/25 13:00
I&O
03/04/25 03/05/25 03/06/25
06:59 06:59 06:59
Intake Total 540 / 540
Balance 540 / 540
== END 2025-03-05 13:51 | disposition home or self-care (01) | DRG 603 ==
LOC: 4 WEST ACU 16:40
PROVIDERS: ADMITTING PHYSICIAN Internal Medicine; CONSULT PHYSICIAN Internal Medicine Infectious Disease; EMERGENCY PHYSICIAN Emergency Medicine; FAMILY PHYSICIAN Hospitalist
DX: L03.116 Cellulitis of left lower limb (principal); I10 Essential (primary) hypertension; Z86.73 Personal history of transient ischemic attack (TIA), and cerebral infarction without residual deficits; I87.2 Venous insufficiency (chronic) (peripheral); B95.62 Methicillin resistant Staphylococcus aureus infection as the cause of diseases classified elsewhere; B96.5 Pseudomonas (aeruginosa) (mallei) (pseudomallei) as the cause of diseases classified elsewhere; B95.1 Streptococcus, group B, as the cause of diseases classified elsewhere; D64.9 Anemia, unspecified; E78.00 Pure hypercholesterolemia, unspecified; Z79.82 Long term (current) use of aspirin; Z79.899 Other long term (current) drug therapy; Z91.199 Patient's noncompliance with other medical treatment and regimen due to unspecified reason; Z86.14 Personal history of Methicillin resistant Staphylococcus aureus infection
CPT/HCPCS: 80048; 80053; 82550; 85025; 85027; 87040; 87070; 87077; 87147; 87186; 87205; 93971; 96365; 96366; 96367; 97116; 97163; 97167; 97530; 99284

== ENCOUNTER 2025-03-26 13:43 | Inpatient (IN) | payer OTHER, SELFPAY ==
[2025-03-26] VITALS (8 sets, daily range): BP systolic 108–140; BP diastolic 50–106; BMI 35.0
[2025-03-26] MEDS: TORADOL 15 MG IV (12:01)
[2025-03-26 12:06] LABS: Hematocrit 36.9 % (37.0-47.0); Hemoglobin 12.2 g/dL (12.0-16.0); Mean Corp Hgb Conc. 33.1 g/dL (33.0-37.0); Mean Corpuscular Volume 88.3 fL (81.0-99.0); Nucleated Red Blood Cells % 0 %; Platelet Count 277 10^3/uL (130-400); Red Cell Dist. Width 14.3 % (11.5-14.5)
[2025-03-26 12:19] LABS: ALT (SGPT) 19 U/L (0-35); AST (SGOT) 29 U/L (14-36); Albumin 3.9 g/dl (3.5-5.0); Alkaline Phosphatase 68 U/L (38-126); Blood Urea Nitrogen 32 mg/dl (7-17); Calcium 9.3 mg/dl (8.4-10.2); Carbon Dioxide 28 mmol/L (22-30); Chloride 104 mmol/L (98-107); Estimated Creatinine Clearance 46 ml/min; Glucose 106 mg/dl (70-99); Potassium 4.8 mmol/L (3.5-5.1); Sodium 138 mmol/L (135-145); Total Protein 6.8 g/dl (6.3-8.2); eGFR 54.87
--- NOTE | 2025-03-26 12:19 | ED.GENMED ---
History of Present Illness
General
Chief Complaint: Skin Problem
Time Seen by Provider: 03/26/25 11:14
History of Present Illness
History of Present Illness:
84-year-old female with history of hypertension, hyperlipidemia, prior CVA, anemia presenting to the emergency department for concern of worsening left lower extremity cellulitis and skin wound. Patient notes that it has been ongoing for weeks,
unknown onset. Was admitted from 03/01 to 03/05. Had a negative DVT ultrasound, was started on broad-spectrum antibiotics, then transition to cefazolin. Patient was MRSA positive, so changed to vancomycin. Ultimately was discharged on doxycycline
and patient and son note that skin wound never really improved, and has since worsened. She has been getting daily wound care at her nursing facility, concern for increasing cellulitis. Patient denies fever. She does note that she previously did
not have any pain, pain developed yesterday. Denies numbness. Denies additional acute medical complaints
Past History
Past History
ED Past Medical History: CVA, HTN, Hypercholesterolemia and Other (UTI, Anemia-iron. )
ED Past Surgical History: (X 3), Gynecological (Hysterectomy, ) and Orthopedic (Laminectomy with Fusion. Left and right hip replacements. )
Social History
Tobacco: Non-smoker
Alcohol: None
Drug: None
Personal:
Living: alone
Employment: Not employed
Family History
Family History: Other
Phy Exam
Physical Exam
Physical Exam:
General: Well-appearing, no clinical signs of dehydration, nontoxic and in no acute distress
HEENT: protecting airway
Neck: appears supple
CV: Normal heart rate
Resp: No accessory muscle use, no increased work of breathing
Abd: No distention
Extremities: Symmetrical swelling bilaterally with slight redness and warmth to the left lower extremity and generalized skin breakdown diffusely throughout the henderson. Distal sensation and pulses intact
Neuro: alert, no focal neurologic deficit
: deferred
Rectal: deferred
Psych: Normal affect
Skin: Intact
Course
Orders/Labs/Results
Orders:
Orders
03/26/25 11:42
Urinalysis Reflex To Culture Urgent
Date Specimen was Collected: 03/26/25
Time Specimen was Collected: 11:49
Ketorolac [Toradol] 15 mg IV NOW STA
03/26/25 11:56
Complete Blood Count/With Diff Urgent
Comprehensive Metabolic Panel Urgent
Abnormal Lab Results
03/26/25
11:56
RBC 4.18 L 10^6/uL
(4.20-5.40)
Hct 36.9 L %
(37.0-47.0)
Absolute Monos (auto) 0.7 H 10^3/uL
(0.1-0.6)
Immature Gran % 0.6 H %
(0-0.5)
BUN 32 H mg/dl
(7-17)
Glucose 106 H mg/dl
(70-99)
03/26/25 11:56
03/26/25 11:56
Vital Signs
Initial and Last Documented VS:
Initial Vital Signs
Temp Pulse Resp BP Pulse Ox
97.9 F 71 16 137/67 98
03/26/25 10:36 03/26/25 10:36 03/26/25 10:36 03/26/25 10:36 03/26/25 10:36
Last Documented Vital Signs
Temp Pulse Resp BP Pulse Ox
97.9 F 71 16 137/67 96
03/26/25 10:36 03/26/25 10:36 03/26/25 10:36 03/26/25 10:36 03/26/25 12:23
MDM/Problems Addressed
MDM/Problems Addressed:
84-year-old female with prior history of hypertension, hyperlipidemia, CVA, anemia presenting for worsening left lower extremity redness and wound. Vital signs on arrival are normal.
On exam, patient is resting comfortably, nontoxic. Patient with diffuse erythema and cellulitic changes to the left lower extremity with generalized skin breakdown. No present neurovascular compromise, intact sensation and pulses. On review of
EMR, recent negative DVT ultrasound without concern for DVT. Suspect acute on chronic cellulitis. No crepitus on exam, no significant wound or purulence without concern for deep-seated infection or gangrenous infection. Given failure of
outpatient therapy, plan for laboratory analysis and IV antibiotics. Patient previously MRSA positive, so we will start on vancomycin
*Pulse Oximetry
SaO2: 96
Oxygen Mode of Delivery: Room air
Patient hypoxic: no
*Critical Care Note
Total Time (30-74mins, 75-104mins- exclusive of procedures): Not Applicable
ED Attending Note
-
Portions of this chart may have been created with voice recognition software.� Occasional wrong word or��sound alike� substitutions may have occurred due to the inherent limitations of voice recognition software.
Discharge Plan
Departure
Prescriptions:
No Action
cholecalciferol (vitamin D3) 1,000 UNITS tablet
2,000 units PO DAILY
rosuvastatin 5 MG tablet
5 mg PO HS
clopidogrel 75 MG tablet
75 mg PO DAILY Qty: 0 0RF
vitamin B complex Capsule
1 cap PO DAILY
aspirin 81 MG tablet,delayed release (DR/EC)
1 tab PO DAILY
acetaminophen 325 mg Tablet
650 mg PO Q6HPRN PRN (Reason: mild pain)
therapeutic multivitamin Tablet
1 tab PO DAILY
cranberry 450 mg Tablet
450 mg PO HS
turmeric 400 mg Capsule
400 mg PO DAILY
lisinopril 40 mg Tablet
40 mg PO DAILY
hydrochlorothiazide 12.5 mg Tablet
12.5 mg PO DAILY
doxycycline hyclate 100 mg capsule
100 mg PO BID Qty: 13 0RF
amoxicillin 500 mg capsule
500 mg PO Q8H Qty: 20 0RF
miconazole nitrate [Miconazorb AF] 2 % Powder
1 applic topical BID Qty: 85 0RF
Interventions
Interventions:
*Risk Screen - Suicide Last Done: 03/26/25 10:36
*General Assessment Last Done: 03/26/25 11:42
*Neglect/Abuse Screening Last Done: 03/26/25 10:36
*ED- Fall Risk Assessment Last Done: 03/26/25 11:42
*ED COVID-19 Vaccine History Last Done: 03/26/25 11:42
Discharge Date and Time
Print Language: WOLOF
--- NOTE | 2025-03-26 13:16 | HPS.HSE ---
Family Physician
-
Family Physician: NOT KNOW UNKNOWN - PT DOES
Chief Complaint
-
LLE swelling and redness.
History of Present Illness
HPI�
84F HX MRSA POS , Wilner cellulitis , HX HTN and HLD seen at ER
- coming in with LLE swelling and redness.
- admitted in February for similar when it started, +MRSA, treated with vanc and dc-ed on doxy.
- it's getting worse in the past week, getting daily wound care.
- Vitals and labs ok.
- Diffuse cellulitis to LLE with generalized skin breakdown.
Medical History
Past Medical History
Past Medical History: Reports CVA, HTN, Hypercholesterolemia and Other (UTIs, anemia, labial abscess)
Past Surgical History: Reports , Gynocological (Hysterectomy) and Orthopedic (Left and right hip replacements; laminectomy with fusion)
Social History
Tobacco: Non-smoker
Alcohol: None
Drug: None
Living: Assisted Living
Employment: Retired
Family History
Family History: Not pertinent
Allergies / Home Medications
Allergies reflects when Allergies were last updated in [email or web address].
Home Medications with original date entered in [email or web address]
Allergy/Medication List:
Allergies
Allergy/AdvReac Type Severity Reaction Status Date / Time
No Known Allergies Allergy Unverified 03/01/25 10:40
Home Medications
cholecalciferol (vitamin D3) 25 mcg (1,000 unit) tablet 2,000 units PO DAILY Supplement 02/02/19
rosuvastatin 5 mg tablet 5 mg PO HS High cholesterol 11/16/19
clopidogrel 75 mg tablet 75 mg PO DAILY Blood clot prevention/tx ##0 05/23/20
aspirin 81 mg tablet,delayed release 1 tab PO DAILY Blood clot prevention/tx 07/05/22
vitamin B complex 1 cap PO DAILY Supplement 07/05/22
acetaminophen 325 mg tablet 650 mg PO Q6HPRN PRN mild pain 01/11/23
cranberry fruit 450 mg tablet (cranberry) 450 mg PO HS Supplement 10/06/24
therapeutic multivitamin 1 tab PO DAILY Supplement 10/06/24
turmeric 400 mg capsule 400 mg PO DAILY Supplement 10/06/24
hydrochlorothiazide 12.5 mg tablet 12.5 mg PO DAILY 03/01/25
lisinopril 40 mg tablet 40 mg PO DAILY 03/01/25
Review of Systems
-
History Source: Patient
Constitutional: Denies Fever, Fatigue or Chills
EENT: Reports No Symptoms
Respiratory: Denies Cough or Trouble Breathing
Cardiac: Denies Chest Pain, Diaphoresis, Palpitations or Syncope
Abdomen/GI: Denies Abdominal Pain, Nausea, Vomiting or Diarrhea
Musculoskeletal: Reports Edema
Skin: Reports Other (Erythematous and tense skin and left lower extremity from just below the knee into the foot)
Neurological: Denies Headache, Weakness or Numbness
Physical Exam
Vital Signs
Vital Signs
Temp Pulse Resp BP Pulse Ox
97.9 F 71 16 137/67 96
03/26/25 10:36 03/26/25 10:36 03/26/25 10:36 03/26/25 10:36 03/26/25 12:23
Physical Exam
General: Well Developed, Well Nourished, No Apparent Distress, Comfortable and Conversant; No Fever, Chills or Sweats
HEENT: NormoCephalic and Atraumatic
Respiratory: Clear and Non Labored Respirations; No Wheezes or Crackles
Cardiac: S1/S2, Regular Rhythm and Peripheral Edema; No Bradycardia, Tachycardia, Murmur, Rub or Gallop
GI: Soft, Non Tender and Normal Bowel Sounds
Musculoskeletal: No Cyanosis and Edema, Left Lower Extremity (Marked nonpitting edema relative to the right); No Edema, Right Lower Extremity
Skin: Warm, Dry and Other (Left lower extremity markedly edematous, erythematous, tender to palpation, warm compared to the right)
Neuro: AO x 3, No Motor Deficits and No Sensory Deficits
Psych: Calm
Laboratory Results
-
03/26/25 11:56
03/26/25 11:56
Laboratory Results
Total Bilirubin 0.6 mg/dl (0.2-1.3) 03/26/25 11:56
AST 29 U/L (14-36) 03/26/25 11:56
ALT 19 U/L (0-35) 03/26/25 11:56
Alkaline Phosphatase 68 U/L (38-126) 03/26/25 11:56
Data Reviewed
-
Lab Data: Labs Reviewed by me
Old Records: Reviewed
Impression/Plan
-
Vital Signs
Temp Pulse Resp BP Pulse Ox
97.9 F 76 22 140/89 99
03/26/25 10:36 03/26/25 13:16 03/26/25 13:16 03/26/25 13:16 03/26/25 13:16
Abnormal Lab Results
03/26/25
11:56
RBC 4.18 L
Hct 36.9 L
Absolute Monos (auto) 0.7 H
Immature Gran % 0.6 H
BUN 32 H
Glucose 106 H
Last hospitalist admission: Date of Admission: 03/01/25 - Date of Discharge: 03/05/25
Principal Discharge diagnosis : Cellulitis of left lower extremity; anemia
Chronic Discharge diagnosis : Hypertension; hyperlipidemia; history of CVA
ASSESSMENT & PLAN
Recurrent LLE cellulitis - failure of out-pt therapy
Known LLE venous stasis dermatitis
Noncompliance with compression HX
HX MRSA colonization
Prior HX surface wound swab: polymicrobial organisms can be skin contaminants and not reflect pathogens source of cellulitis.
- reiterate the importance of leg compression, elevation, moisturize skin.
- agree with gram-positive coverage (including MRSA and GBS) with IV Vancomycin
Chronic Anemia
- trend H&H, clinical status
- Transfuse for hemoglobin <7
Essential Hypertension
- ELECTRODYNAMICIST HCTZ, lisinopril
Hyperlipidemia
- ELECTRODYNAMICIST rosuvastatin
HX CVA
- ELECTRODYNAMICIST aspirin, clopidogrel
Additional PHX
Hysterectomy
Bilateral hip replacement
DVT PPx: Lovenox
CODE STATUS: Full
IP MS
[2025-03-26] MEDS: VANCOCIN 540 MG IV (13:17)
--- NOTE | 2025-03-26 16:26 | CM ---
manager supply chain reviewed patient's chart and met with patient and patient states that she resides at [facility], is independent with adl's and uses a rollator with ambulation, patient reports she is current with [facility] visiting nurses.
PCP: Corrina Schroeder
Pharmacy: [facility] in [place].
[facility]
[phone]

[facility]
[phone]
--- NOTE | 2025-03-26 16:30 | TRANSFER ---
Pt arrived from ED by stretcher. Stretcher pulled into room. Pt ambulated to bed with rolling walker x 1-2 assist. AAO x 3. VSS. B/L leg dressing changed and wound care given. Call lowery within reach. Pt verbalizes understanding of call lowery.
Assessed and oriented to room.
[2025-03-26] MEDS: LOVENOX 40 MG SC (18:15)
[2025-03-26] MEDS: CRESTOR 5 MG PO (21:05)
[2025-03-26] MEDS: DESENEX/MITRAZOL/ZEASORB 1 APPLIC TOPICAL (21:05)
--- NOTE | 2025-03-26 22:11 | PHA.VAN.IN ---
Assessment
- Assessment
Renal Function: SCR Appears Elevated from baseline (SCr 0.7-0.8)
Maximum Temperature: 97.9
Minimum Temperature: 97.7
AUC Dosing Plan
- Dosing Variables
Dosing Weight (kg): 95.4
Dosing CrCl (ml/min): 46
Vd coefficient (L/kg): 0.6
- Empiric Dosing
Initial / Loading Dose: 2000 mg 03/26 13:17
Maintenance Regimen: 1250 mg q24h
Estimated AUC (mcg*h/mL): 529
Estimated Peak (mcg*h/mL): 34.1
Estimated Trough (mcg/ml): 13.1
Estimated Half Life (H): 16.3
- Monitoring
No levels ordered at this time: consider in the upcoming days
Pharmacokinetics Vancomycin I
- -
Patient Age: 84
Patient Sex: Female
Vancomycin Day #: 1
Indication: Skin And Soft Tissue
Requesting Provider: Dr Dacosta
Pertinent Antimicrobial Allergies:
no known allergies
Height / Weight:
Height 5 ft 5 in
Actual Weight 95.4 kg
- Vital Signs / Lab Results
Temp Pulse Resp BP Pulse Ox
97.7 F 74 16 133/50 96
03/26/25 15:36 03/26/25 15:36 03/26/25 15:36 03/26/25 15:36 03/26/25 15:36
Lab Results - Hematology
03/26/25
11:56
WBC 7.1
Lab Results - Chemistry
03/26/25
11:56
BUN 32 H
Creatinine 1.0
Estimated Creat Clear 46
Albumin 3.9
[2025-03-27 05:53] VITALS: BMI 33.4
[2025-03-27] MEDS: VANCOCIN 275 MG IV (06:22)
[2025-03-27 07:30] VITALS: BP 112/47
[2025-03-27 07:38] LABS: Hematocrit 31.9 % (37.0-47.0); Hemoglobin 10.6 g/dL (12.0-16.0); Mean Corp Hgb Conc. 33.2 g/dL (33.0-37.0); Mean Corpuscular Volume 88.4 fL (81.0-99.0); Platelet Count 237 10^3/uL (130-400); Red Cell Dist. Width 14.1 % (11.5-14.5)
[2025-03-27 07:59] LABS: Blood Urea Nitrogen 31 mg/dl (7-17); Calcium 8.7 mg/dl (8.4-10.2); Carbon Dioxide 22 mmol/L (22-30); Chloride 109 mmol/L (98-107); Estimated Creatinine Clearance 50 ml/min; Glucose 98 mg/dl (70-99); Potassium 4.6 mmol/L (3.5-5.1); Sodium 137 mmol/L (135-145); eGFR > 60.00
--- NOTE | 2025-03-27 08:36 | PHA.VAN.FU ---
Vancomycin Assessment / Plan
- Assessment
Renal Function: SCR Decreasing
WBC's are: Trending Down
In the past 24 hrs, patient has been: Afebrile
- Dosing Plan
Continue: Vanc 1250mg IV q24H
- Monitoring Plan
No level(s) ordered at this time: Consider levels after 8/19 AM dose
- Follow Up
Pharmacy will continue to follow.
Vancomycin Follow UP
- -
Patient Age: 84
Patient Sex: Female
Vancomycin Day #: 2
Indication: Skin And Soft Tissue
Requesting Provider: Dr Dacosta
Pertinent Antimicrobial Allergies:
no known allergies
Height / Weight:
Height 5 ft 5 in
Actual Weight 90.917 kg
- Vital Signs / Lab Results
Temp Pulse Resp BP Pulse Ox
97.6 F 67 16 112/47 94
03/27/25 07:30 03/27/25 07:30 03/27/25 07:30 03/27/25 07:30 03/27/25 07:30
Lab Results - Hematology
03/26/25 03/27/25
11:56 06:48
WBC 7.1 6.2
Lab Results - Chemistry
03/26/25 03/27/25
11:56 06:48
BUN 32 H 31 H
Creatinine 1.0 0.9
Estimated Creat Clear 46 50
Albumin 3.9
[2025-03-27] MEDS: DESENEX/MITRAZOL/ZEASORB 1 APPLIC TOPICAL ×2 (08:49→21:07)
[2025-03-27] MEDS: PLAVIX 75 MG PO (08:49)
[2025-03-27] MEDS: ZESTRIL 40 MG PO (08:49)
[2025-03-27] MEDS: ORETIC 12.5 MG PO (08:49)
[2025-03-27] MEDS: ASPIR LOW (ENTERIC COATED) 81 MG PO (08:49)
--- NOTE | 2025-03-27 09:19 | W.PN.HOSP.TC ---
Today's Communication/Plan
-
Lower extremity wound care
Compression therapy
ID consult
PT/OT
Assessment / Plan
Assessment / Plan
Gen-AAOx3, NAD
HEENT-NC, AT, anicteric, clear oral mm
Neck-supple
CV-reg, no M, +S1/S2
Lungs-clear B/L
Abd-soft, NT, ND
Ext-bilateral lower extremity edema, worse on the left
Musculoskeletal-no cyanosis, clubbing
Skin-warm and dry, left lower extremity pretibial weeping wounds, surrounding erythema bilaterally
Neuro-grossly non-focal
Psych-calm, cooperative
Bilateral lower extremity venous stasis dermatitis/wounds -worse on the left lower extremity. Not convinced she has an active infection. Currently on IV vancomycin. Will consult ID given recurrent admissions.
Unclear how compliant she has been with compression therapy at home.
Reiterated importance of weight loss given obesity's contribution to venous stasis dermatitis. She states she is not actively trying to lose weight.
Essential hypertension
Hyperlipidemia -on Crestor.
History of stroke -remains on dual antiplatelet therapy.
Obesity due to excess calories
Full code
PT/OT
Anticipated Discharge: > 48 hours
Subjective/Interval History
-
Date of Service: March 27, 2025
Patient seen and examined. No complaints.
Objective Data
-
Labs:
Laboratory Results
03/27/25
06:48
WBC 6.2
Hgb 10.6 L
Hct 31.9 L
Plt Count 237
Sodium 137
Potassium 4.6
Chloride 109 H
Carbon Dioxide 22
BUN 31 H
Creatinine 0.9
Glucose 98
Calcium 8.7
Vital Signs:
Vital Signs
Temp Pulse Resp BP Pulse Ox
97.6 F 67 16 112/47 94
03/27/25 07:30 03/27/25 08:49 03/27/25 07:30 03/27/25 08:49 03/27/25 07:30
Review of Systems
-
History Source: Patient
All other systems: Reviewed and negative
[2025-03-27 12:49] VITALS: PULSE 67
--- NOTE | 2025-03-27 14:55 | CON.ID ---
Consultation
-
Date/Time Consultation Requested: 03/27/2025 0917
Date/Time Consultation Performed: 03/27/2025 1457
Requesting Provider: Dr. Dobbs
Performing Provider: Dr. Julio
Reason for Consultation: Left lower extremity wound; erythema
Chief Complaint / Past History
Chief Complaint
Left leg swelling, redness, weeping
History of Present Illness
Parul Emmanuel is an 84-year-old female being evaluated requesting Dr. Dobbs in regards to left lower extremity swelling and erythema. History is obtained from chart review, patient interview. Additional history was obtained from the patient's
son who is at the bedside.
The patient is known to the Infectious Diseases service, having been seen during her last admission on 03/01/2025. She has a history of venous stasis ulcers and [facility]24 when all wounds
that healed. According to prior history she had not been compliant with daily compressions and lower extremity compression was only being applied a few times per week. She then developed progressive left lower extremity edema, with the development
of serous drainage. She presented to the hospital on 03/01. During her hospital stay the legs improved, and she was discharged back to her assisted living on 03/05/2025, to continue with a course of doxycycline and amoxicillin.
She now presents back to the hospital due to increasing erythema and drainage of the legs. She reports that she has been followed by home nursing and she completed her course of antibiotics, but over the past week there has been some increasing
erythema and a visiting nurse was out to see her yesterday and sent her to the emergency room for further evaluation. She denies any fevers or chills. She admits to pain in the left lower extremity prior to admission.
Past History
Additional Past Medical History:
Hx CVA
HTN
Dyslipidemia
Venous stasis
Additional Past Surgical History:
Hysterectomy
Bilateral hip replacement
Allergy History:
No Known Allergies Allergy (Verified 03/26/25 10:35)
Medications Reviewed: Yes
Current Antibiotics:
Vancomycin (dosing per pharmacy)
Social History
Tobacco: Non-Smoker
Alcohol: None
Drug: None
Personal: Single
Living: Assisted Living
Employment: Retired
Family History
Family History: Not Pertinent
Review of Systems
Vital Signs
Temp Pulse Resp BP Pulse Ox
97.6 F 67 16 112/47 94
03/27/25 07:30 03/27/25 08:49 03/27/25 07:30 03/27/25 08:49 03/27/25 07:30
Physical Exam
Physical Exam
Constitutional: No Acute Distress and Comfortable
Eyes: No Conjunctival Hemorrhage and Sclera Anicteric
Pulmonary: Clear
Gastrointestinal: Soft, Non Tender, Non Distended and Normal Bowel Sounds
Genito-Urinary: Negative CVA Tenderness
Extremities: Edema (LLE >>RLE), Erythema (LLE distal half to ankle.) and Venous Insufficiency (BLE)
Wound: Other (Superficial wound versus excoriation distal left lower extremity)
Neurological: AO x 3
Lab / Diagnostic Study Results
03/27/25 06:48
03/27/25 06:48
Abs Immat Gran (auto) 0.0 10^3/uL (0-0.05) 03/26/25 11:56
Absolute Neuts (auto) 4.6 10^3/uL (1.4-6.5) 03/26/25 11:56
Absolute Lymphs (auto) 1.6 10^3/uL (1.2-3.4) 03/26/25 11:56
Absolute Monos (auto) 0.7 10^3/uL (0.1-0.6) H 03/26/25 11:56
Absolute Basos (auto) 0.0 10^3/uL (0-0.2) 03/26/25 11:56
Immature Gran % 0.6 % (0-0.5) H 03/26/25 11:56
Neutrophils % 64.9 % (42.2-75.2) 03/26/25 11:56
Lymphocytes % 22.0 % (20.5-51.1) 03/26/25 11:56
Monocytes % 9.1 % (1.7-9.3) 03/26/25 11:56
Eosinophils % 3.1 % (0-6) 03/26/25 11:56
Basophils % 0.3 % (0-2) 03/26/25 11:56
Microbiology Results
Micro:
03/01/25 12:30 Wound Culture - Preliminary
Leg - Left Gram Stain - Preliminary
03/01/25 19:39 MRSA Screen - Pending
Nose
03/01/25 15:01 Blood Culture - Pending
Blood/Venous
03/01/25 12:31 Blood Culture - Pending
Blood/Venous
03/01/25 Peripheral vascular US: No sonographic evidence for LEFT lower extremity deep venous thrombosis, noting nonvisualization of the calf veins.
Assessment / Plan
Exac. lower extremity swelling/lymphedema
Lower extremity erythroderma
Suspected left lower extremity cellulitis
Hx MRSA
Hx CVA
HTN
Dyslipidemia
Recommendations:
Continue with lower extremity compressive modalities with Luis wrap 24 hours a day.
Continue with lower extremity elevation above the level of the heart at least 2 hours out of every 6.
Continue with vancomycin given history of MRSA. Follow levels closely to prevent nephrotoxicity.
Monitor for clinical improvement.
Local care to the left lower extremity wound
--- NOTE | 2025-03-27 15:06 | PTCARENOTE ---
Jayla Nicolas called and updated.
[2025-03-27] MEDS: TYLENOL 650 MG PO ×2 (15:51→21:37)
[2025-03-27 16:00] VITALS: BP 120/53
--- NOTE | 2025-03-27 17:32 | PTCARENOTE ---
pt complained of unrelieved 7/10 pain throughout bilateral legs, MD made aware, new orders provided, see MAR.
[2025-03-27] MEDS: LOVENOX 40 MG SC (17:56)
[2025-03-27] MEDS: ROXICODONE 5 MG PO (19:34)
[2025-03-27] MEDS: CRESTOR 5 MG PO (21:06)
[2025-03-28 00:08] VITALS: BP 123/49
[2025-03-28] MEDS: VANCOCIN 275 MG IV (05:36)
[2025-03-28 07:30] VITALS: BP 139/61
[2025-03-28] MEDS: ASPIR LOW (ENTERIC COATED) 81 MG PO (08:39)
[2025-03-28] MEDS: PLAVIX 75 MG PO (08:39)
[2025-03-28] MEDS: ORETIC 12.5 MG PO (08:39)
[2025-03-28] MEDS: ZESTRIL 40 MG PO (08:39)
[2025-03-28] MEDS: DESENEX/MITRAZOL/ZEASORB 1 APPLIC TOPICAL (08:41)
--- NOTE | 2025-03-28 09:29 | PHA.VAN.FU ---
Vancomycin Assessment / Plan
- Assessment
Renal Function: Stable
WBC's are: WNL
In the past 24 hrs, patient has been: Afebrile
- Dosing Plan
Continue: vancomycin 1250 mg Q24H
- Monitoring Plan
Peak Level: 03/29 930
Trough Level: 03/30 530
- Follow Up
Pharmacy will continue to follow.
Vancomycin Follow UP
- -
Patient Age: 84
Patient Sex: Female
Vancomycin Day #: 3
Indication: Skin And Soft Tissue
Requesting Provider: Dr Dacosta
Pertinent Antimicrobial Allergies:
no known allergies
Height / Weight:
Height 5 ft 5 in
Actual Weight 90.917 kg
- Vital Signs / Lab Results
Temp Pulse Resp BP Pulse Ox
98.1 F 62 16 139/61 96
03/28/25 07:30 03/28/25 08:39 03/28/25 07:30 03/28/25 08:39 03/28/25 07:30
Lab Results - Hematology
03/26/25 03/27/25
11:56 06:48
WBC 7.1 6.2
Lab Results - Chemistry
03/26/25 03/27/25
11:56 06:48
BUN 32 H 31 H
Creatinine 1.0 0.9
Estimated Creat Clear 46 50
Albumin 3.9
Lab Results - Urine
03/27/25
21:26
Urine Nitrite (Reflex) Cancelled
Leukocyte Esterase Rfl Cancelled
--- NOTE | 2025-03-28 10:20 | W.PN.HOSP.TC ---
Today's Communication/Plan
-
DC Vanco
Keflex
Discharge planning
Assessment / Plan
Assessment / Plan
Gen-AAOx3, NAD
HEENT-NC, AT, anicteric, clear oral mm
Neck-supple
CV-reg, no M, +S1/S2
Lungs-clear B/L
Abd-soft, NT, ND
Ext-bilateral lower extremity edema, worse on the left
Musculoskeletal-no cyanosis, clubbing
Skin-warm and dry, left lower extremity pretibial weeping wounds, surrounding erythema bilaterally
Neuro-grossly non-focal
Psych-calm, cooperative
Bilateral lower extremity venous stasis dermatitis/wounds -worse on the left lower extremity. Can change to oral Keflex, discussed with Dr. Julio. Outpatient follow-up with wound clinic.
Unclear how compliant she has been with compression therapy at home.
Reiterated importance of weight loss given obesity's contribution to venous stasis dermatitis. She states she is not actively trying to lose weight.
Essential hypertension -stable.
Hyperlipidemia -on Crestor.
History of stroke -remains on dual antiplatelet therapy.
Obesity due to excess calories
Full code
PT/OT -Home health.
Dispo -stable for discharge. Patient not sure that her assisted living facility can help take care of her given need for lower extremity wound care and sy wraps. Case management to assist.
Anticipated Discharge: Today
Subjective/Interval History
-
Date of Service: March 28, 2025
Patient seen and examined. No complaints.
Objective Data
-
Vital Signs:
Vital Signs
Temp Pulse Resp BP Pulse Ox
98.1 F 62 16 139/61 96
03/28/25 07:30 03/28/25 08:39 03/28/25 07:30 03/28/25 08:39 03/28/25 07:30
I&O
03/27/25 03/28/25 03/29/25
06:59 06:59 06:59
Intake Total 960 / 960
Balance 960 / 960
Review of Systems
-
History Source: Patient
All other systems: Reviewed and negative
--- NOTE | 2025-03-28 10:46 | W.DS.TRANS ---
DC Summary - [facility]
-
Discharge Instructions:
Discharge Diagnosis/Procedures Lower extremity venous stasis dermatitis
Diet Low Cholesterol,Low Fat
Activity As tolerated
Driving Restrictions As prior to admission
Bathing Restrictions None
Instructions:
Stand-Alone Forms:
Changes to Home Medications: No
Discharge Medications:
DC Medications w/original date entered in [facility]
cholecalciferol (vitamin D3) 25 mcg (1,000 unit) tablet 2,000 units PO DAILY Supplement 02/02/19
rosuvastatin 5 mg tablet 5 mg PO HS High cholesterol 11/16/19
clopidogrel 75 mg tablet 75 mg PO DAILY Blood clot prevention/tx ##0 05/23/20
aspirin 81 mg tablet,delayed release 1 tab PO DAILY Blood clot prevention/tx 07/05/22
vitamin B complex 1 cap PO DAILY Supplement 07/05/22
cranberry fruit 450 mg tablet (cranberry) 450 mg PO HS Supplement 10/06/24
therapeutic multivitamin 1 tab PO DAILY Supplement 10/06/24
turmeric 400 mg capsule 400 mg PO DAILY Supplement 10/06/24
hydrochlorothiazide 12.5 mg tablet 12.5 mg PO DAILY Fluid Retention/Swelling 03/01/25
lisinopril 40 mg tablet 40 mg PO DAILY Blood Pressure 03/01/25
acetaminophen 500 mg tablet 1,000 mg PO DAILYPRN PRN mild pain/fever 03/26/25
cephalexin 500 mg capsule 500 mg PO QID #27 caps 03/28/25
Home Medication Changes
Pending Results: No
--- NOTE | 2025-03-28 10:48 | W.PN.ID1 ---
Date of Service
Date of Service: March 28, 2025
Today's Communication
Continue antibiotics. See below�
Assessment / Plan
Exac. lower extremity swelling/lymphedema
Lower extremity erythroderma
Suspected left lower extremity cellulitis
Hx MRSA
Hx CVA
HTN
Dyslipidemia
Recommendations:
Continue with lower extremity compressive modalities with Luis wrap; would maintain 24 hours a day.
Continue with lower extremity elevation above the level of the heart at least 2 hours out of every 6.
Given improvement, can transition to oral cephalexin for 7 additional days.
Continue with local care to the left lower extremity wounds
- Would recommend Adaptic + additional A&D ointment, covered by Kerlix and then Luis wrap's.
Will need ongoing daily wound care.
Stressed the importance that compression remain on extremities 24 hours a day.
Chief Complaint
-: Other (Left lower extremity wound, lymphedema and erythema)
Subjective / Review of Systems
Patient seen and examined. Reports had compression on for most of yesterday, but removed overnight secondary to discomfort.
Vital Signs / Physical Exam
Vital Signs
Vital Signs
Temp Pulse Resp BP Pulse Ox
98.1 F 62 16 139/61 96
03/28/25 07:30 03/28/25 08:39 03/28/25 07:30 03/28/25 08:39 03/28/25 07:30
Physical Exam
Constitutional: No Acute Distress, Comfortable and Non-toxic
Eyes: Sclera Anicteric
Cardiovascular: S1/S2; Negative S3/S4
Pulmonary: Non Labored
Gastrointestinal: Soft and Non Tender
Extremities: Other (Left lower extremity with reduced edema and erythema. Superficial wounds remain, but less drainage.)
Neurological: Awake and Alert
Psychological: Calm
Objective Data
Lab Data
Lab Results
03/27/25 06:48
03/27/25 06:48
Estimated Creat Clear 50 ml/min 03/27/25 06:48
Total Bilirubin 0.6 mg/dl (0.2-1.3) 03/26/25 11:56
AST 29 U/L (14-36) 03/26/25 11:56
ALT 19 U/L (0-35) 03/26/25 11:56
Alkaline Phosphatase 68 U/L (38-126) 03/26/25 11:56
Most recent labs reviewed.
03/01/25 Peripheral vascular US: No sonographic evidence for LEFT lower extremity deep venous thrombosis, noting nonvisualization of the calf veins.
Care Review
Plan reviewed with: Physician (Hospitalist)
--- NOTE | 2025-03-28 10:54 | CM ---
Addendum entered by Divina Spear 03/28/25 11:12:
wheelchair van $90 - notified Chester VENEGAS
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
Addendum entered by Divina Spear 03/28/25 11:08:
IMM explained & signed. In chart
Original Note:
Patient seen at bedside
Discharge today to [facility]-spoke with Joanie at [facility] & updated ok to return
PT rec HOME HEALTH
[facility] nurses-notified Gemma from [facility]
careport updated
Spoke with son Chester VENEGAS- Wheelchair van cost & agreeable
PLAN: Jayla Nicolas [place]
Report #: [phone] (Joanie nurse)
Fax #: [phone]
wheelchair van to transport - form on chart
[2025-03-28] MEDS: MIRALAX 17 GRAMS PO (11:49)
[2025-03-28] MEDS: KEFLEX 500 MG PO (11:49)
--- NOTE | 2025-03-28 13:00 | WOUNDNOTE ---
WO RN note: Patient admitted with cellulitis of L leg.
See H&P for complete history. Patient states she lives at [facility].
PMH: CVA, mild dementia, venous leg ulcers-goes to [facility], UTI, urinary incontinence, ASCVD.
Wound Location and type/assessment: Patient known to wound care service inpatient and outpatient. Now admitted with same LLE cellulitis and draining venous ulcers on R medial lower leg and L lower leg. Draining large amt of serous drainage on L
leg, dressing changed this morning already leaking through. Luis wrap knee high to be on 24 hrs, recommended by Dr. Julio, note reviewed. Peripheral vascular ultrasound negative for DVT on L leg. + palpable pedal pulses, R medial leg with smaller
venous ulcer. Heels are intact and nurse Gildardo reports sacrum intact. Patient for discharge today reports patient and nurse.
Appetite: good.
Pressure redistribution devices in place: Accumax. Pillows in use under calves. Encouraged leg elevation.
Plan: Local wound care with adaptic, alginate and dry dressing applied to L leg. Adaptic and silicone foam to R leg. Luis wrap knee high applied to L leg, instructed patient need to use compression and leg elevation above level of heart.
Will confirm orders with hospitalist and updated RN. Care plan to be updated and will follow as needed.
Recommend follow up at wound care center upon discharge.
== END 2025-03-28 15:05 | disposition home health service (06) | DRG 300 ==
LOC: 3 WEST ACU 13:43
PROVIDERS: ADMITTING PHYSICIAN Internal Medicine; ATTENDING PHYSICIAN Hospitalist; CONSULT PHYSICIAN Internal Medicine Infectious Disease; EMERGENCY PHYSICIAN Student in an Organized Health Care Education/Training Program
DX: I83.228 Varicose veins of left lower extremity with both ulcer of other part of lower extremity and inflammation (principal); L03.116 Cellulitis of left lower limb; L97.829 Non-pressure chronic ulcer of other part of left lower leg with unspecified severity; I10 Essential (primary) hypertension; I87.8 Other specified disorders of veins; E78.00 Pure hypercholesterolemia, unspecified; I89.0 Lymphedema, not elsewhere classified; E66.09 Other obesity due to excess calories; D50.9 Iron deficiency anemia, unspecified; Z96.643 Presence of artificial hip joint, bilateral; Z87.440 Personal history of urinary (tract) infections; Z90.710 Acquired absence of both cervix and uterus; Z98.1 Arthrodesis status; Z79.82 Long term (current) use of aspirin; Z79.02 Long term (current) use of antithrombotics/antiplatelets; Z86.14 Personal history of Methicillin resistant Staphylococcus aureus infection; Z91.199 Patient's noncompliance with other medical treatment and regimen due to unspecified reason; Z86.73 Personal history of transient ischemic attack (TIA), and cerebral infarction without residual deficits; Z68.33 Body mass index [BMI] 33.0-33.9, adult
CPT/HCPCS: 80048; 80053; 85025; 85027; 96374; 96375; 97162; 97530; 99284

== ENCOUNTER → 2025-04-19 08:04 | Outpatient (REF) | payer OTHER, SELFPAY | LOC: WOUND 08:04 | PROVIDERS: ATTENDING PHYSICIAN Surgery; FAMILY PHYSICIAN Internal Medicine Geriatric Medicine | DX: I87.312 Chronic venous hypertension (idiopathic) with ulcer of left lower extremity (principal); L97.222 Non-pressure chronic ulcer of left calf with fat layer exposed; L97.322 Non-pressure chronic ulcer of left ankle with fat layer exposed; I87.2 Venous insufficiency (chronic) (peripheral) | CPT/HCPCS: 29581; 99213 ==

== ENCOUNTER → 2025-04-28 08:42 | Outpatient (REF) | payer OTHER, SELFPAY | LOC: WOUND 08:42 | PROVIDERS: ATTENDING PHYSICIAN Surgery; FAMILY PHYSICIAN Internal Medicine Geriatric Medicine | DX: I87.312 Chronic venous hypertension (idiopathic) with ulcer of left lower extremity (principal); L97.222 Non-pressure chronic ulcer of left calf with fat layer exposed; L97.322 Non-pressure chronic ulcer of left ankle with fat layer exposed; I87.2 Venous insufficiency (chronic) (peripheral) | CPT/HCPCS: 11042 ==

== ENCOUNTER → 2025-05-05 10:44 | Outpatient (REF) | payer OTHER, SELFPAY | LOC: WOUND 10:44 | PROVIDERS: ATTENDING PHYSICIAN Surgery | DX: I87.312 Chronic venous hypertension (idiopathic) with ulcer of left lower extremity (principal); L97.222 Non-pressure chronic ulcer of left calf with fat layer exposed; L97.322 Non-pressure chronic ulcer of left ankle with fat layer exposed; I87.2 Venous insufficiency (chronic) (peripheral) | CPT/HCPCS: 29581; 99213 ==

== ENCOUNTER → 2025-05-10 13:05 | Outpatient (REF) | payer OTHER, SELFPAY | LOC: WOUND 13:05 | PROVIDERS: ATTENDING PHYSICIAN Surgery; FAMILY PHYSICIAN Internal Medicine Geriatric Medicine | DX: I87.312 Chronic venous hypertension (idiopathic) with ulcer of left lower extremity (principal); L97.222 Non-pressure chronic ulcer of left calf with fat layer exposed; L97.322 Non-pressure chronic ulcer of left ankle with fat layer exposed; I87.2 Venous insufficiency (chronic) (peripheral) | CPT/HCPCS: 29581; 99213 ==

== ENCOUNTER → 2025-05-17 10:12 | Outpatient (REF) | payer OTHER, SELFPAY | LOC: WOUND 10:12 | PROVIDERS: ATTENDING PHYSICIAN Surgery; FAMILY PHYSICIAN Internal Medicine Geriatric Medicine | DX: I87.312 Chronic venous hypertension (idiopathic) with ulcer of left lower extremity (principal); L97.222 Non-pressure chronic ulcer of left calf with fat layer exposed; L97.322 Non-pressure chronic ulcer of left ankle with fat layer exposed; I87.2 Venous insufficiency (chronic) (peripheral) | CPT/HCPCS: 29581; 99213 ==

== ENCOUNTER → 2025-05-24 09:50 | Outpatient (REF) | payer OTHER, SELFPAY | LOC: WOUND 09:50 | PROVIDERS: ATTENDING PHYSICIAN Surgery; FAMILY PHYSICIAN Internal Medicine Geriatric Medicine | DX: I87.312 Chronic venous hypertension (idiopathic) with ulcer of left lower extremity (principal); L97.222 Non-pressure chronic ulcer of left calf with fat layer exposed; L97.322 Non-pressure chronic ulcer of left ankle with fat layer exposed; I87.2 Venous insufficiency (chronic) (peripheral) | CPT/HCPCS: 29581; 99213 ==

== ENCOUNTER → 2025-05-31 10:25 | Outpatient (REF) | payer OTHER, SELFPAY | LOC: WOUND 10:25 | PROVIDERS: ATTENDING PHYSICIAN Surgery; FAMILY PHYSICIAN Internal Medicine Geriatric Medicine | DX: I87.312 Chronic venous hypertension (idiopathic) with ulcer of left lower extremity (principal); L97.222 Non-pressure chronic ulcer of left calf with fat layer exposed; L97.322 Non-pressure chronic ulcer of left ankle with fat layer exposed; L97.421 Non-pressure chronic ulcer of left heel and midfoot limited to breakdown of skin; I87.2 Venous insufficiency (chronic) (peripheral) | CPT/HCPCS: 29581; 99213 ==

== ENCOUNTER → 2025-06-10 11:05 | Outpatient (REF) | payer OTHER, SELFPAY | LOC: WOUND 11:05 | PROVIDERS: ATTENDING PHYSICIAN Surgery; FAMILY PHYSICIAN Internal Medicine Geriatric Medicine | DX: I87.312 Chronic venous hypertension (idiopathic) with ulcer of left lower extremity (principal); L97.222 Non-pressure chronic ulcer of left calf with fat layer exposed; L97.322 Non-pressure chronic ulcer of left ankle with fat layer exposed; L97.421 Non-pressure chronic ulcer of left heel and midfoot limited to breakdown of skin; I87.2 Venous insufficiency (chronic) (peripheral) | CPT/HCPCS: 29581; 99213 ==

== ENCOUNTER → 2025-06-21 11:10 | Outpatient (REF) | payer OTHER, SELFPAY | LOC: RAD 11:10 | PROVIDERS: ATTENDING PHYSICIAN Internal Medicine Geriatric Medicine | DX: I10 Essential (primary) hypertension (principal); E78.2 Mixed hyperlipidemia; D64.89 Other specified anemias; R73.01 Impaired fasting glucose; E55.9 Vitamin D deficiency, unspecified; Z13.31 Encounter for screening for depression; I87.2 Venous insufficiency (chronic) (peripheral); R31.29 Other microscopic hematuria | CPT/HCPCS: 76770 ==

== ENCOUNTER 2025-06-23 11:25 | Outpatient (REF) | payer OTHER, SELFPAY | END 2025-06-23 23:59 | disposition home or self-care (01) | LOC: WOUND 11:25 | PROVIDERS: ATTENDING PHYSICIAN Surgery; FAMILY PHYSICIAN Internal Medicine Geriatric Medicine | DX: I87.312 Chronic venous hypertension (idiopathic) with ulcer of left lower extremity (principal); L97.222 Non-pressure chronic ulcer of left calf with fat layer exposed; L97.322 Non-pressure chronic ulcer of left ankle with fat layer exposed; L97.421 Non-pressure chronic ulcer of left heel and midfoot limited to breakdown of skin; I87.2 Venous insufficiency (chronic) (peripheral) | CPT/HCPCS: 29581; 99213 ==

== ENCOUNTER 2025-06-28 11:16 | Outpatient (REF) | payer OTHER, SELFPAY | END 2025-06-28 23:59 | disposition home or self-care (01) | LOC: WOUND 11:16 | PROVIDERS: ATTENDING PHYSICIAN Surgery; FAMILY PHYSICIAN Internal Medicine Geriatric Medicine | DX: I87.312 Chronic venous hypertension (idiopathic) with ulcer of left lower extremity (principal); L97.222 Non-pressure chronic ulcer of left calf with fat layer exposed; L97.322 Non-pressure chronic ulcer of left ankle with fat layer exposed; L97.421 Non-pressure chronic ulcer of left heel and midfoot limited to breakdown of skin; I87.2 Venous insufficiency (chronic) (peripheral) | CPT/HCPCS: 99212 ==

== ENCOUNTER 2025-07-21 08:31 | Outpatient (REF) | payer OTHER, SELFPAY | END 2025-07-21 23:59 | disposition home or self-care (01) | LOC: WOUND 08:31 | PROVIDERS: ATTENDING PHYSICIAN Registered Nurse; FAMILY PHYSICIAN Internal Medicine Geriatric Medicine | DX: I87.312 Chronic venous hypertension (idiopathic) with ulcer of left lower extremity (principal); L97.322 Non-pressure chronic ulcer of left ankle with fat layer exposed; L97.222 Non-pressure chronic ulcer of left calf with fat layer exposed; L97.421 Non-pressure chronic ulcer of left heel and midfoot limited to breakdown of skin; I87.2 Venous insufficiency (chronic) (peripheral) | CPT/HCPCS: 99212 ==

== ENCOUNTER 2025-07-28 09:28 | Outpatient (REF) | payer OTHER, SELFPAY | END 2025-07-28 23:59 | disposition home or self-care (01) | LOC: WOUND 09:28 | PROVIDERS: ATTENDING PHYSICIAN Registered Nurse; FAMILY PHYSICIAN Internal Medicine Geriatric Medicine | DX: I87.312 Chronic venous hypertension (idiopathic) with ulcer of left lower extremity (principal); L97.222 Non-pressure chronic ulcer of left calf with fat layer exposed; L97.322 Non-pressure chronic ulcer of left ankle with fat layer exposed; L97.421 Non-pressure chronic ulcer of left heel and midfoot limited to breakdown of skin; I87.2 Venous insufficiency (chronic) (peripheral) | CPT/HCPCS: 29580; 99212 ==

== ENCOUNTER 2025-08-03 10:18 | Outpatient (REF) | payer OTHER, SELFPAY | END 2025-08-03 23:59 | disposition home or self-care (01) | LOC: WOUND 10:18 | PROVIDERS: ATTENDING PHYSICIAN Registered Nurse; FAMILY PHYSICIAN Internal Medicine Geriatric Medicine | DX: I87.312 Chronic venous hypertension (idiopathic) with ulcer of left lower extremity (principal); L97.222 Non-pressure chronic ulcer of left calf with fat layer exposed; L97.322 Non-pressure chronic ulcer of left ankle with fat layer exposed; L97.421 Non-pressure chronic ulcer of left heel and midfoot limited to breakdown of skin; I87.2 Venous insufficiency (chronic) (peripheral) | CPT/HCPCS: 29580; 99212 ==

== ENCOUNTER 2025-08-09 10:14 | Outpatient (REF) | payer OTHER, SELFPAY | END 2025-08-09 23:59 | disposition home or self-care (01) | LOC: WOUND 10:14 | PROVIDERS: ATTENDING PHYSICIAN Registered Nurse; FAMILY PHYSICIAN Internal Medicine Geriatric Medicine | DX: I87.312 Chronic venous hypertension (idiopathic) with ulcer of left lower extremity (principal); L97.222 Non-pressure chronic ulcer of left calf with fat layer exposed; L97.322 Non-pressure chronic ulcer of left ankle with fat layer exposed; L97.421 Non-pressure chronic ulcer of left heel and midfoot limited to breakdown of skin; I87.2 Venous insufficiency (chronic) (peripheral) | CPT/HCPCS: 99212 ==